=== PATIENT | female | born 1950 | race Caucasian/White ===

== ENCOUNTER 2019-03-22 14:15 | Outpatient (CLI) | payer MEDICARE, OTHER, SELFPAY ==
--- NOTE | ~2019-03-22 | MR_ITS ---
EXAMINATION: MR lumbar spine wo con EXAM DATE: 03/22/2019 15:03 INDICATION: Radiculopathy. TECHNIQUE: Multi-sequential, multiplanar MR images of the lumbar spine were obtained without contrast . Sagittal T1, T2, T2 fat saturation images. Axial T2 weighted images. Comparison is made to prior examination from 07/17/2016. FINDINGS: Patient has L4-5 fusion and laminectomies. There is moderate to severe disc disease at L4-5 and L5-S1 with 3 mm and 5 mm anterolisthesis at these levels respectively. Mild disc disease from T1 1-L2. The conus medullaris terminates at the T12-L1 level and has normal signal intensity and morphol ogy. 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 T here is mild thoracic dextroscoliosis. Level by level evaluation: T12-L1: There is a mild diffuse disc bulge. Facet arthropathy: Mild to moderate. Neural foraminal stenosis: No stenosis. Central canal stenosis: No stenosis. L1-L2: There is a mild diffuse disc bulge. Facet arthropathy: Mild to moderate . Ligamentum flavum enlargement. Neural foraminal stenosis: Mild right. Central canal stenosis: Mild. L2-L3: There is a moderate diffuse disc bulge. Facet arthropathy: Moderate . Ligamentum flavum enlargement. Neural foraminal stenosis: Moderate to severe left, mild right. Central canal stenosis: Moderate. L3-L4: There is a moderate to large diffuse disc bulge. Facet arthropathy: Moderate to severe . Ligamentum flavum enlargement. Neural foraminal stenosis: Moderate left, mild to moderate right. Central canal stenosis: Moderate to severe. L4-L5: This level is fused. Facet arthropathy: Fused. Neural foraminal stenosis: No stenosis. Central canal stenosis: Posterior decompression. L5-S1: There is a mild diffuse disc bulge. Facet arthropathy: Mild to moderate. Neural foraminal stenosis: Mild to moderate bilateral. Central canal stenosis: Mild. Compared to 2017, there may be minimal interval progression in spondylosis. IMPRESSION: 1. L3-4 and L4-5 grade 1 anterolistheses, moderate and moderate to severe central canal stenosis res pectively. 2. Lesser spondylosis other levels with minimal progression compared to 2017. Reviewed, dictated and finalized at location A. S ROOM ASSOCIATE IMPRESSION: 1. L3-4 and L4-5 grade 1 anterolistheses, moderate and moderate to severe cent ral canal stenosis respectively. 2. Lesser spondylosis other levels with minimal progression compared to 2017.
== END 2019-03-22 14:16 | disposition home or self-care (01) ==
LOC: ANHIMG 14:18
PROVIDERS: PCP Family Medicine; Visit Provider Nurse Practitioner Family
DX: M43.16 Spondylolisthesis, lumbar region (principal); M48.061 Spinal stenosis, lumbar region without neurogenic claudication; M47.816 Spondylosis without myelopathy or radiculopathy, lumbar region
CPT/HCPCS: 72148

== ENCOUNTER 2019-07-09 19:37 | Outpatient (CLI) | payer MEDICARE, OTHER, SELFPAY ==
--- NOTE | ~2019-07-09 | MR_ITS ---
EXAMINATION: MR cervical spine wo con DATE: 07/09/2019 20:30 INDICATION: Cervical radiculopathy. TECHNIQUE: Magnetic resonance imaging (MRI) of the cervical spine was performed without intravenous c ontrast. Sequences included sagittal T2-weighted FSE, sagittal T2-weighted FS FSE, sagittal T1-weight ed FSE, axial MERGE, and axial T2-weighted FSE. COMPARISON: None FINDINGS: There is hypolordosis of inferior cervical spine. Vertebral body heights are normal. There is mildly decreased disc height at C4-C5 and severely decreased disc height at C5-C6 and C6-C7. The s sabina cord signal intensity is normal. There is a 7 mm nodule in left thyroid lobe, likely not clinic ally significant. The following disc levels are specifically discussed: C2-C3: The disc does not extend beyond the endplate margin. There is no uncovertebral joint osteoarth ritis. There is mild right and moderate left facet joint osteoarthritis. There is no neural foraminal stenosis. There is no central canal stenosis. C3-C4: There is a central protrusion. There is mild left uncovertebral joint osteoarthritis. There is mild bilateral facet joint osteoarthritis. There is mild left neural foraminal stenosis. There is mi ld central canal stenosis. C4-C5: The disc is bulging. There is moderate right and severe left uncovertebral joint osteoarthriti s. There is mild right and moderate left facet joint osteoarthritis. There is mild right and moderate left neural foraminal stenosis. There is mild central canal stenosis with ventral indentation of the spinal cord. C5-C6: The disc is bulging. There is severe bilateral uncovertebral joint osteoarthritis. There is mi ld bilateral facet joint osteoarthritis. There is severe right and moderate left neural foraminal mesha nosis. There is moderate central canal stenosis with ventral and dorsal indentation of the spinal cor d. C6-C7: The disc is bulging. There is severe bilateral uncovertebral joint osteoarthritis. There is mi ld bilateral facet joint osteoarthritis. There is mild right and moderate left neural foraminal steno sis. There is moderate central canal stenosis with ventral and dorsal indentation of the spinal cord. C7-T1: The disc is bulging. There is mild left uncovertebral joint osteoarthritis. There is severe ri ght and moderate left facet joint osteoarthritis. There is mild bilateral neural foraminal stenosis. There is mild central canal stenosis. IMPRESSION: 1. Severe cervical spondylosis. Reviewed, dictated and finalized at location A.
--- NOTE | ~2019-07-09 | MR_ITS ---
EXAMINATION: MR thoracic spine wo con DATE: 07/09/2019 20:45 INDICATION: Thoracic back pain. TECHNIQUE: Magnetic resonance imaging (MRI) of the thoracic spine was performed without intravenous c ontrast. Sagittal localizer T1-weighted FSE of the cervical spine was obtained. Thoracic spine sequen liset included sagittal T2-weighted FSE, sagittal T1-weighted FSE, sagittal STIR FSE, and axial T2-weig hted FSE. COMPARISON: None FINDINGS: There is 7 degrees levocurvature of upper thoracic spine. There is mild chronic anterior we dging of T5-T8 vertebral bodies. There are Schmorl's nodes from T5-T6 through L1-L2. There is mild to moderately decreased disc height from T4-T5 through T9-T10. At T1-T2, there is a left central extrus ion with mild central canal stenosis. At T2-T3, there is a central protrusion with mild central canal stenosis. At T5-T6, the disc is bulging with mild central canal stenosis. At T7-T8, there is a right central extrusion with mild central canal stenosis. At T8-T9, there is a central extrusion with mild central canal stenosis. At T9-T10, the disc is bulging with mild central canal stenosis. There is mu ltilevel facet joint osteoarthritis, mild at most levels. On the right, there is mild neural foramina l stenosis at T9-T10. On the left, there is mild neural foraminal stenosis at T9-T10 and T11-T12. The spinal cord signal intensity is normal. IMPRESSION: 1. Moderate thoracic spondylosis. Reviewed, dictated and finalized at location A.
== END 2019-07-09 19:38 | disposition home or self-care (01) ==
PROVIDERS: PCP Family Medicine; Visit Provider Nurse Practitioner Family
DX: M54.6 Pain in thoracic spine (principal); M47.814 Spondylosis without myelopathy or radiculopathy, thoracic region; M47.812 Spondylosis without myelopathy or radiculopathy, cervical region
CPT/HCPCS: 72141; 72146

== ENCOUNTER 2024-01-07 22:36 | Emergency (ER) | payer MEDICARE, OTHER, SELFPAY ==
--- NOTE | ~2024-01-07 | XR_ITS ---
XR forearm RT 2V Ordering provider: Luz An PA-C History: . dog bite . Comparison: None. FINDINGS: BONES: No acute fracture or dislocation. 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 Possibility of osteomyelitis should be considered. JOINT SPACES: Normal. SOFT TISSUES: Soft tissue swelling is seen anteriorly in the forearm. IMPRESSION: Sclerotic changes in the proximal radius and ulna. possibility of osteomyelitis should be considered. Soft tissue swelling in the proximal forearm suggestive of cellulitis. Hematoma cannot be excluded. Reviewed, dictated and finalized at location A. ETING SUPPORT MANAGER
[2024-01-07 22:38] VITALS: BP 151/65; PULSE 56; RESP 13; TEMP 36.6; O2SAT 99
--- NOTE | 2024-01-08 01:22 | ED_ITS ---
HPI - Animal Bite General Chief Complaint: Animal Bite Stated Complaint: dog bite R forearm Time Seen by Provider: 01/08/24 00:48 Source: patient Mode of arrival: EMS Limitations: no limitations History of Present Illness HPI narrative: This is a 73 year old female that presents to the ER for dog bite to the bilateral forearms. Reports her dog and her family members dog were fighting and she tried to break it up. Reports multiple lacerations to the right forearm. She is unsure of last tetanus vaccination. The dogs are up to date on their vaccinations. Denies decreased ROM or numbness. Related Data Allergies Allergy/AdvReac Type Severity Reaction Status Date / Time No Known Allergies Allergy Unknown Verified 01/07/24 22:43 Review of Systems Review of Systems: CONSTITUTIONAL: Denies fever SKIN: Reports laceration NEUROLOGIC: Denies numbness All systems reviewed & are unremarkable except as noted in HPI and below PMFSH Past Medical History Medical History (Updated 01/08/24 @ 03:32 by Luz An PA-C) Hypertension Tachycardia Social History Social History (Updated 02/24/19 @ 17:53 by Jayro Meléndez, MAGED) Smoking status: Never smoker Gender identity (if verbalized by the patient): Female Exam Narrative: GENERAL: Well-appearing, well-nourished, and in no acute distress. HEAD: Normocephalic, atraumatic. EYES: EOMI. EXTREMITIES: Normal range of motion. No edema. Normal radial pulses. Multiple puncture wounds to the right forearm. Superficial abrasion to the left wrist SKIN: Warm, dry, no rash. NEURO: No focal deficits. Alert and oriented x3. PSYCH: Normal mood and affect Course Course Emergency Course: patient educated on further wound care Vital Signs Vital signs: Vital Signs Temperature 97.8 F 01/07/24 22:38 Pulse Rate 56 L 01/07/24 22:38 Respiratory Rate 13 01/07/24 22:38 Blood Pressure 151/65 H 01/07/24 22:38 Pulse Oximetry 99 01/07/24 22:38 Oxygen Delivery Room Air 01/07/24 22:38 Temperature 97.8 F 01/07/24 22:38 Pulse Rate 82 01/08/24 01:49 Respiratory Rate 16 01/08/24 01:49 Blood Pressure 163/62 H 12/03/24 01:49 Pulse Oximetry 98 01/08/24 01:49 Oxygen Delivery Room Air 01/07/24 22:38 Procedures Laceration Laceration 1: Date: 01/08/24 Time: Site: upper extremity Side (If applicable): right Size (cm): 3 Description: linear Depth: simple, single layer Pre-repair: irrigated extensively ====== Skin Level ====== Skin layer closed with: steri strips ====== Subcutaneous Layer ====== ====== Muscle Layer ====== ====== Tendon Layer ====== Laceration 2: Date: 01/08/24 Time: : Site: upper extremity Side (If applicable): right Size (cm): 2 Description: linear Depth: simple, single layer Pre-repair: irrigated extensively ====== Skin Level ====== Skin layer closed with: steri strips ====== Subcutaneous Layer ====== ====== Muscle Layer ====== ====== Tendon Layer ====== MDM - Animal Bite MDM Narrative Medical decision making narrative: Patient presents to the emergency department after a dog bite with laceration to the right forearm. Patient with multiple puncture wounds. These were thoroughly irrigated. Her wounds were approximated with Steri-Strips, while trying to allow for them to still drain. She was updated on tetanus vacci nation. Will be started on prophylactic antibiotic. Forearm x-ray shows hematoma. Sclerotic changes in the radius and ulna. I do not believe patient has osteomyelitis at this time. She was educated on further wound care. She is to follow up with primary provider. She was given warnings to return to the ER Differential Diagnosis Differential diagnosis: Likely dog bite Imaging Data Radiologist's impression: ITS Impressions Forearm X-Ray 01/08/24 01:49 IMPRESSION: Sclerotic changes in the proximal radius and ulna. possibility of osteomyelitis should be considered. Soft tissue swelling in the proximal forearm suggestive of cellulitis. Hematoma cannot be excluded. Critical Care Time Critical Care Time Critical Care Time: No Discharge Plan Discharge Clinical Impression: Dog bite Qualifiers: Encounter type: initial encounter Qualified Code(s): W54.0XXA - Bitten by dog, initial encounter Patient Disposition: Home, Self-Care Condition: Stable Instructions: Antibiotic Form, Animal Bite (ED) Additional Instructions: Return to the emergency department if you experience fever, redness or swelling of your wound, abnormal drainage from your wound, or any other symptoms that are concerning to you. Do not soak the wound. Let the water run over the wounds in the shower. When the steri strips fall off clean the area with soap and water and apply more steri strips. Take oral antibiotic as prescribed Follow-up with your primary care doctor for wound check Prescriptions: New amoxicillin-pot clavulanate 875-125 mg tablet 1 tablet PO Q12H 7 Days Qty: 14 0RF Follow-up/Referrals: Andrew Yanes MD [Physician] - UNKNOWN,DOCTOR [Primary Care Provider] -
[2024-01-08 01:49] VITALS: BP 163/62; PULSE 82; RESP 16; O2SAT 98
[2024-01-08] MEDS: TETANUS,DIPHTHERIA,AC PERTUSSIS ADULT (0.5 ML) BOOSTRIX IM (02:28)
[2024-01-08] MEDS: AMOXICILLIN/CLAVULANATE K 875-125 MG TAB 1 TABLET PO (04:13)
[2024-01-08 04:21] VITALS: BP 160/65; PULSE 80; RESP 13; O2SAT 100
[2024-01-08 04:23] VITALS: BP 160/65; PULSE 80; RESP 13; O2SAT 100
== END 2024-01-08 04:26 | disposition home or self-care (01) ==
PROVIDERS: Emergency Provider Physician Assistant
DX: S51.851A Open bite of right forearm, initial encounter (principal); S51.852A Open bite of left forearm, initial encounter; W54.0XXA Bitten by dog, initial encounter; I10 Essential (primary) hypertension; Z23 Encounter for immunization
CPT/HCPCS: 73090; 90471; 90715; 99283; A9270

== ENCOUNTER 2024-07-03 15:33 | Inpatient (IN) | payer MEDICARE, OTHER, SELFPAY ==
[2024-07-03] VITALS (18 sets, daily range): BP systolic 127–175; BP diastolic 70–98; PULSE 62–90; RESP 13–22; TEMP 36.8; O2SAT 96–100; BMI 23.8
--- NOTE | ~2024-07-03 | XR_ITS ---
CHEST RADIOGRAPH, PA AND LATERAL CLINICAL HISTORY: chest pain . COMPARISON: 09/10/2017 TECHNIQUE: PA and lateral views of the chest. FINDINGS The cardiomediastinal silhouette is unremarkable. The lungs are clear. IMPRESSION: No focal infiltrate or effusion. Reviewed, dictated and finalized at location A.
--- OUTSIDE RECORDS SUMMARY | 2024-07-03 15:36 | XMS_ITS | Encounter Summary ---
Author Organization [facility] Healthcare Address [address] [place] [address] Care Team Providers Care Social Insurance Adviser Name Role Phone Joan Sepulveda MD Primary Care Provider Encounter Details Date Type Department Care Team (Late st Contact Info) Description 10/01/2023 Telephone [facility] [address] [place] [address] Lisa Hernandez, BELLE Social History Tobacco Use Types Packs/Day Years Used Date Smoking Tobacco: Former Smokeless Tobacco: Never Comments:Smoking History Pac ks/day: 1 Packs/pt vapes not nicotine Alcohol Use Standard Drinks/Week Comments No 0 (1 standard drink = 0.6 oz pur e alcohol) AUDIT-C Answer Date Recorded Q1: How often do you have a drink containing alcohol? Never 10/03/2023 Q2: How many drinks containi ng alcohol do you have on a typical day when you are drinking? Patient does not drink Q3: How often do you have si x or more drinks on one occasion? 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 Never 10/03/2023 3:13 PM Bree Kelly MA Q2: How many drinks containing alcohol do you have on a typical day when you are drinking? Patient does not drink 10/03/2023 3:13 PM Bree Kelly MA Q3: How often do you have six or more drinks on one occasion? Never 10/03/2023 3:13 PM Bree Kelly MA documented as of this encounter Plan of Treatment Not on file documented as of this encounter Visit Diagnoses Not on filedocumented in this encounter Care Teams Social Insurance Adviser Relationship Specialty Start Date End Date Joan Sepulveda MD PCP - General Family Practice 07/20/22 documented as of this encounter
--- OUTSIDE RECORDS SUMMARY | 2024-07-03 15:36 | XMS_ITS | Clinical Summary ---
Author Organization [facility] [place] [address] [facility] lt Address [address] [address] Care Team Providers Care Psychiatry Resident Name Role Phone Joan Sepulveda MD Primary Care Provider Allergies No known active allergies Medications omega-3 fatty acids-fish oil (FISH OIL) 360-1,200 mg capsule 0 0 6 Active blood glucose diagnostic (glucose blood) strip 1 each by Not Applicable route 4 Active traZODone (DESYREL) 50 mg tabletIndicatio ns:Chronic insomnia Take 1 tablet (50 mg total) by mouth nightly as needed for sleep for sleep 90 tablet 1 4 Active cyanocobalamin (Vitamin B-12) 1,000 mcg tabletIndicatio ns:Prevention of Vitamin B12 Deficiency Take 1 tablet (1,000 mcg total) by mouth daily 100 tablet 3 4 Active buPROPion XL (WELLBUTRIN XL) 150 mg 24 hr tabletIndicatio ns:Anxiety with Depression Take 1 tablet (150 mg total) by mouth every morning 100 tablet 1 4 Active losartan (COZAAR) 50 mg tabletIndicatio ns:Hypertension associated with type 2 diabetes mellitus (HCC),Encounter for Medicare annual wellness exam Take 1 tablet (50 mg total) by mouth daily 100 tablet 1 4 Active metoprolol XL (TOPROL-XL) 50 mg extended release tabletIndicatio ns:Paroxysmal SVT (supraventricul ar tachycardia),En counter for Medicare annual wellness exam Take 1 tablet (50 mg total) by mouth daily 100 tablet 1 4 Active rosuvastatin (CRESTOR) 20 mg tabletIndicatio ns:Hyperlipidem ia due to type 2 diabetes mellitus (HCC),Encounter for Medicare annual wellness exam Take 1 tablet (20 mg total) by mouth daily 100 tablet 3 4 Active donepeziL (ARICEPT) 10 mg tabletIndicatio ns:Moderate early onset Alzheimer's dementia without behavioral disturbance, psychotic disturbance, mood disturbance, or anxiety (HCC) TAKE 1/2 TABLET BY MOUTH ONCE A DAY FOR TWO WEEKS, THEN ONE TABLET ONCE A DAY 90 tablet 5 5 Active Active Problems Problem Noted Date Diagnosed Date Moderate early onset Alzheim er's dementia without behavioral disturbance, psychotic disturbance, mood disturbance, or anxiety 09/04/2023 Assessment & Plan (10/03/2023 4:59 PM CDT): Chronic. Working with neurology. Under evaluation. Has lumbar puncture plan to further evaluate for Alzheimer's type. Recently started on donepezil CKD (chronic kidney disease) stage 3, GFR 30-59 ml/min 06/27/2023 Assessment & Plan (10/03/2023 4:59 PM CDT): Mild on prior labs. Monitor. Continue losartan. Assessment & Plan (06/27/2023 6:38 PM CDT): Patient had mild CKD stage IIIA on labs last year. We need to avoid dehydration limit use of NSAIDs. This is likely due to history of chronic hypertension and potential component of diabetic injury. We will need to monitor renal function least once yearly. Avoid dehydration. We are going to try to get her blood pressure better Chronic insomnia 06/27/2023 Assessment & Plan (06/27/2023 6:39 PM CDT): Chronic. Patient does have a degree of inconsistent sleep habits. She only sleeps about 4-6 hours a night. Unsure how much of the trazodone is helping but were not sure if she is actually taking it regularly Paroxysmal SVT (supraventricular tachycardia) Assessment & Plan (10/03/2023 4:58 PM CDT): Chronic. Denies any recent symptoms. Continue metoprolol Assessment & Plan (06/27/2023 6:37 PM CDT): Chronic intermittent episodes of paroxysmal SVT. Patient does not recall any recent episodes of that are symptomatic. She is supposed to be on metoprolol immediate release twice daily but some concerns about compliance. We will change it to the once a day extended release to see if this can improve her medication compliance Cervical stenosis of spinal canal 07/20/2022 Electronic cigarette use 07/12/2020 Assessment & Plan (07/12/2020 4:10 PM CDT): Precontemplative. Encouraged complete smoking cessation. Discussed different types of medications & obmy-kfn-cfumlix aides to help with cessation. Moderate episode of recurrent major depressive d isorder 07/12/2020 Assessment & Plan (10/03/2023 4:58 PM CDT): Chronic. Mood stable on extended release bupropion. Continue Assessment & Plan (06/27/2023 6:36 PM CDT): Chronic. Mood needs some improvement. She does have mild depressive symptoms but not severe depression. Patient is not great about taking her bupropion twice a day. We will change this to the extended release once a day version. We will see if this provides better control. If still struggling next visit then we may consider changing to an alternative mood medication like an SSRI Assessment & Plan (07/12/2020 4:28 PM CDT): Bupropion 150mg bid. Reports good control of depression w/current regimen. No changes to be made at this time. Reviewed med Ses & scheduling. Reviewed red flags. Hyperlipidemia due to type 2 diabetes mellitus 0 02/07/2020 Assessment & Plan (10/03/2023 4:58 PM CDT): Chronic diabetes which has been diet controlled over the last few years. Encouraged diabetic diet and lifestyle. Continue rosuvastatin. Cholesterol levels will be checked medication adjusted as needed to target an LDL goal less than 70 Assessment & Plan (06/27/2023 6:36 PM CDT): Patient was off cholesterol medication when cholesterol level was checked last year. Her cholesterol level has been very poorly controlled. She is supposed to be on rosuvastatin but is unclear how often she is taking this. We discussed use of the pill organizer to make sure she starts taking this more regularly. We will plan to get updated cholesterol level at next visit. We are trying to target an LDL goal of less than 70. There is no real symptoms to suggest statin intolerance though she has not necessarily taking it as consistently as we would like Assessment & Plan (07/12/2020 4:28 PM CDT): 04/25/18: rj=838 hdl=33 um=041 xcy=025 Tc/hdl=6.6 Pravastatin 40mg daily. We will check labs and make adjustments to medications as needed. Patient should focus on limiting bad fats in the diet and using exercise as a way to improve the lipid status. Secondary prevention. Reviewed medications. Lipid panel ordered; will call w/results when rec'd. Denies any statin Ses. Reviewed diet/exercise recommendations. Reviewed red flags. Type 2 diabetes mellitus with polyneuropathy 04/2013 Assessment & Plan (10/03/2023 4:58 PM CDT): Chronic. Stable. Monitor. Encouraged healthy diet and lifestyle Assessment & Plan (06/27/2023 6:33 PM CDT): Chronic. Diabetes has been well-controlled. No indication for oral medications at present time. Encouraged her to continue to try to limit some of the sweets in the diet but we can likely tolerate slightly looser control due to patient's memory impairment. I would be hesitant to consider anything that can cause significant hypoglycemia going forward. We still need a copy of her most recent diabetic eye exam from last fall. We did encourage them to make sure they schedule this least once a year. Diabetic foot exam was done today. She will need a full diabetic panel labs when we see her back for her annual wellness visit Assessment & Plan (07/12/2020 4:09 PM CDT): Lab Results Component Value Date HGBA1C 5.9 04/25/2018 Has not been in clinic since 04/2018. Has not had any labs since that time. Reviewed dietary/exercise recommendations. Instructed to perform daily foot check. Reviewed medication side effects & scheduling. To check/record FSBS & bring to appointments. Labs ordered; will call with results when received. To make follow up appointment in 6 months. Reviewed red flags; what would warrant further evaluation. History of breast biopsy 07/07/2011 B12 deficiency 03/03/2010 Assessment & Plan (10/03/2023 4:57 PM CDT): Chronic. They are unsure she is actually taking her oral replacement. They will check when she gets home. If on oral replacement and still low then we may need to start on B12 injections monthly. If not on replacement then she would restart a 1000 mcg daily Assessment & Plan (06/27/2023 6:32 PM CDT): Chronic. It is supposed to be on oral replacement. Unclear how consistent she is taking it. Patient does struggle some with remember taking her meds. We discussed with patient's daughter and herself how to potentially try to improve medication compliance. Discussed use of a pill menu planner and having family remind her regularly to take her pills. We will see if this can help. Memory loss 02/19/2009 Assessment & Plan (10/03/2023 4:58 PM CDT): Chronic. Following with Neurology now. Under evaluation for dementia. Recently started on donepezil. Continue Assessment & Plan (06/27/2023 6:35 PM CDT): Patient has significant memory impairment. It is unclear if this is an Alzheimer's type dementia versus vascular dementia versus a component of pseudodementia versus alternative pathology. She definitely struggles significantly with the short- term memory. Discussed home safety concerns and making sure the family is around to help out with her care. They are going to try to make sure they can figure out a way to help her improve compliance with medication. They do check on her regularly. If they do continue to struggle long-term and can not improve medication compliance then they may need to consider looking at placing her in an assisted living facility with potential memory care unit at some point in time but hopefully this can be avoided Assessment & Plan (07/12/2020 10:27 PM CDT): States that children know she's having memory issues. reivewed safety. Has 19 y/o grandson that stays with her. Hypertension associated with type 2 diabetes michael patterson 11/27/2008 Assessment & Plan (10/03/2023 4:57 PM CDT): Hypertension was controlled in office today. Continue metoprolol extended- release and losartan. Encouraged healthy diet and lifestyle. Diabetes has been diet controlled. We do need her most recent eye exam Assessment & Plan (06/27/2023 6:34 PM CDT): Chronic. Patient's blood pressure was uncontrolled in office today. They do believe she has a least off 1 if not multiple blood pressure medications. Patient is not good about taking her medications every day especially if they are dosed more than once daily. We will change the metoprolol 25 mg twice daily immediate release to metoprolol succinate 50 mg once daily as an equivalent once day alternative. She will continue the losartan. These were both refilled for her. Discussed home blood pressure goals. We will have them follow up with me in 3 months for her blood pressure and diabetes. If blood pressures remaining elevated on home monitoring between now and then they will let me know Assessment & Plan (07/12/2020 4:10 PM CDT): Has not been in clinic since 04/2018. Has not had any labs since that time. The blood pressure is under good control. Ideally it should be under 130/80. Continue medications without adjustment. Continue efforts to eat well (4-5 fruits and veggies) daily and exercise for about 30 min nearly every day. Watch salt intake, keeping to less than 2000mg per day. Limit alcohol. Include strategies to cope with stress. Labs ordered today; will contact w/results once received. Chronic low back pain 06/15/2008 Overview (11/22/2016): Overview: S/p 5 back surgeries. On chronic narcotic treatment since 1995. S/p pain management, physical therapy, stimulator. Assessment & Plan (10/03/2023 4:58 PM CDT): Patient with chronic low back pain. Stable. Discussed use of acetaminophen for pain. Consider putting it in her pillbox so it becomes a scheduled medication for nighttime symptoms Assessment & Plan (07/12/2020 10:26 PM CDT): Using marijuana gummies & CBD droppers. Reports that pain controlled. Resolved Problems Problem Noted Date Diagnosed Date Resolved Date BMI 27.0-27.9,adult 07/12/2020 07/21/19 Assessment & Plan (07/12/2020 4:01 PM CDT): Discussed healthy diet and importance of regular physical activity. BMI is acceptable for this patient. Hypertension associated with diabetes 07/12/2020 07/12/2020 Assessment & Plan (07/12/2020 4:06 PM CDT): The blood pressure is under good control. Ideally it should be under 130/80. Continue medications without adjustment. Continue efforts to eat well (4-5 fruits and veggies) daily and exercise for about 30 min nearly every day. Watch salt intake, keeping to less than 2000mg per day. Limit alcohol. Include strategies to cope with stress. Labs ordered today; will contact w/results once received. Need for 23-polyvalent pneum ococcal polysaccharide vaccine 07/12/2020 07/20/2022 Assessment & Plan (07/12/2020 4:11 PM CDT): Pneumovax 23 vaccine given today. Discussed possible tenderness/redness at injection site. Encounter for screening mamm ogram for breast cancer 07/12/2020 07/20/2022 Assessment & Plan (07/12/2020 4:11 PM CDT): Mammogram order given; will call with results when received. Encouraged to perform monthly SBE. Encounter for osteoporosis s creening in asymptomatic postmenopausal patient 07/12/202007/06 Assessment & Plan (07/12/2020 4:11 PM CDT): DEXA ordered. Will contact with results once received. Screening for colon cancer 07/12/2020 0 07/20/2022 Assessment & Plan (07/12/2020 4:11 PM CDT): Referral to [facility] for colonoscopy. Aware that their office will call her to set up. number given if she does not receive call. Colonoscopy refused 04/28/2018 07/13/19 Depression 05/18/2009 07/12/2020 Chronic pain 06/15/2008 07/12/2020 Hyperlipidemia 06/15/2008 07/12/2020 Tobacco abuse 06/15/2008 07/12/2020 Immunizations Immunization Administration Dates Next Due Influenza, Quadrivalent, Hig h Dose, Preservative Free, Intrr 02/11/2021 Influenza, Quadrivalent, Spl it, Preservative Free, Intramuscular 04/25/2018,10/23/2016 Influenza, Trivalent, Adjuva nted, Intramuscular 10/02/2018 Influenza, Trivalent, IM (MDV) 12/08/2010,2009 Influenza, Unspecified 11/06/2019(Deferr ed: Patient Refused),11/06/2019(Deferred: Patient Refused),04/25/2018(Deferred: Patient Refused),02/05/2017(Deferred: Patient Refused) Pneumococcal Conjugate PCV 13 04/25/2018 Pneumococcal Polysaccharide PPV23 07/12/2020,,04/22/2012 Tdap 04/01/2013 Surgical History Surgery Date Site/Laterality Comments BACK SURGERY back surgery OTHER SURGICAL HISTORY back surgery- cages OTHER SURGICAL HISTORY spinal cord stimulater OTHER SURGICAL HISTORY ovary and tubes OTHER SURGICAL HISTORY surgery-replace stimulator OTHER SURGICAL HISTORY removal of stimulator CHOLECYSTECTOMY Cholecystectomy [place] FLUORO GUIDED LUMBAR PUNCTURE 10/26/2023 Right Medical History Medical History Date Comments Hypercholesterolemia 1984 High choles terol; Comments: [facility] 03/01/2015 - Hx Other Medical 1993 degenerative di sc disease; Comments: [facility] 03/01/2015 - Hx Other Medical [facility]; Comments: [facility] 03/01/2015 - Diabetes mellitus (HCC) Diabetes mellitus; Comments: [facility] 03/01/2015 - Memory deficit due to cyst on b rain Chickenpox Family History Medical History Relation Name Comments Heart disease Father Heart disease; Hypertension Father Hypertension; Stroke Father Stroke; Alzheimer's disease Mother Alzheime r's disease; Cause of : Alzheimer's disease Colon cancer Neg Hx Relation Name Status Comments Father Mother Social History Tobacco Use Types Packs/Day Years [...] 2 10/03/2023 Personal Safety Answer Date Recorded Have you ever been in or are you currently in a harmful physical or emotional relationship or is someone making you feel afraid or unsafe? 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 Gender Identity Not on file Sexual Orientation Not on file Obstetrics History Last Filed Vital Signs Vital Sign Reading Time Taken Comments Blood Pressure 203/84 12/12/2023 1:48 PM PHOTOVOLTAIC TESTING TECHNICIAN Pulse 55 12/12/2023 1:48 PM PHOTOVOLTAIC TESTING TECHNICIAN Temperature 36.6 C (97.9 F) 10/26/2023 8:50 AM CDT Respiratory Rate 18 12/12/2023 1:48 PM PHOTOVOLTAIC TESTING TECHNICIAN Oxygen Saturation 98% 12/12/2023 1:48 PM PHOTOVOLTAIC TESTING TECHNICIAN Inhaled Oxygen Concentration - - Weight 62.5 kg (137 lb 12.8 oz) 12/12/2023 1:48 PM PHOTOVOLTAIC TESTING TECHNICIAN Height 160 cm (5' 3) 12/12/2023 1:48 PM PHOTOVOLTAIC TESTING TECHNICIAN Body Mass Index 24.41 12/12/2023 1:48 PM PHOTOVOLTAIC TESTING TECHNICIAN Plan of Treatment Health Maintenance Due Date Last Done Comments Breast Cancer Screening-Mammogram 1952 Hepatitis C Screening 1950 Osteoporosis Screening-Bone Density Scan 1950 Dilated Eye Exam 1952 Hepatitis B Screening 1970 Zoster Vaccine (1 of 2) 2002 Colon Cancer Screening-FIT 05/03/2019 05/02/2018 DTaP/Tdap/Td Vaccine (2 - Td or Tdap) 04/01/2023 04/01/2013 Albumin Creatinine Ratio, Urine 08/24/2023 Lipid Panel 08/24/2023 08/23/2022, 0 08/2021, 04/25/2018, Additional history exists eGFR 08/24/2023 08/23/2022 Hemoglobin A1C 12/28/2023 06/27/2023, 07/06, 02/11/2021, Additional history exists Foot Exam 06/26/2024 06/27/2023, 06/06, 09/06/2022, Additional history exists Depression Screening 10/02/2024 10/03/2023, 10/03/2023, 06/27/2023, Additional history exists Well Visit 65+ 10/02/2024 10/03/2023 Influenza Vaccine (Season Ended) 2024 02/11/2021, 10/02/2018, 04/25/2018, Additional history exists Fall Risk Assessment 10/25/2024 10/26/2023, 10/03/2023, 07/20/2022, Additional history exists Pneumococcal vaccine 65+ Completed 021, 04/25/2018, 04/22/2012, Additional history exists Procedures Procedure Name Priority Date/Time Associated Diagnosis Comments POCT HEMOGLOBIN A1C Routine 06/27/2023 3 :37 PM CDT Hyperlipidemia due to type 2 diabetes mellitus (HCC) Hypertension associated with type 2 diabetes mellitus (HCC) Type 2 diabetes mellitus with polyneuropathy (HCC) COMPREHENSIVE METABOLIC PANEL Routine 08/23/2022 2:03 PM CDT Hypertension associated with type 2 diabetes mellitus (HCC) Type 2 diabetes mellitus with polyneuropathy (HCC) Hyperlipidemia due to type 2 diabetes mellitus (HCC) LIPID PANEL Routine 08/23/2022 2:03 PM CDT Hypertension associated with type 2 diabetes mellitus (HCC) Type 2 diabetes mellitus with polyneuropathy (HCC) Hyperlipidemia due to type 2 diabetes mellitus (HCC) ALBUMIN CREATININE RATIO, URINE Routine 08/23/2022 2:03 PM CDT Hypertension associated with type 2 diabetes mellitus (HCC) Type 2 diabetes mellitus with polyneuropathy (HCC) Hyperlipidemia due to type 2 diabetes mellitus (HCC) OCCULT BLOOD, FECAL (FIT) Routine 05/02/2018 from Last 3 Months or Most Recently Relevant to Health Maintenance Results * POCT hemoglobin A1c (06/27/2023 3:37 PM CDT) Hemoglobin A1C, POC 5.8 % Blood 06/27/2023 3:37 PM CDT Joan Sepulveda MD POINT OF CARE TEST ORD ERABLES Final Result * Albumin Creatinine Ratio, Urine (08/23/2022 2:03 PM CDT) Creatinine, ur 190 20 - 275 mg/dL [facility] Microalbumin, ur 3.1 See Note: mg/dL [facility] Comment: Reference Range: Reference Range Not established Microalbumin/creat ratio 16 <30 mcg/mg creat [facility] Comment: The ADA defines abnormalities in albumin excretion as follows: Albuminuria Category Result (mcg/mg creatinine) Normal to Mildly increased <30 Moderately increased 30-299 Severely increased > OR = 300 The ADA recommends that at least two of three specimens collected within a 3-6 month period be abnormal before considering a patient to be within a diagnostic category. Urine 08/23/2022 2:03 PM CDT 08/23/2022 2:04 PM CDT Narrative [facility] - 08/25/2022 1:49 AM CDT FASTING:YES FASTING: YES Joan Sepulveda MD LAB URINE ORDERABLES F inal Result Performing Organization Address City/[facility]/ZIP Co de Phone Number [facility] [address] [address] [address] * (ABNORMAL) Lipid panel (08/23/2022 2:03 PM CDT) Pathologist [facility] Cholesterol 248(H) <200 mg/dL [facility] HDL 46(L) > OR = 50 mg/dL [facility] [place] Triglycerides 169(H) <150 mg/dL [facility] [place] LDL 170(H) mg/dL (calc) [facility] [place] Comment: Reference range: <100 Desirable range <100 mg/dL for primary prevention; <70 mg/dL for patients with CHD or diabetic patients with > or = 2 CHD risk factors. LDL-C is now calculated using the Iraida calculation, which is a validated novel method providing better accuracy than the Friedewald equation in the estimation of LDL-C. Baldemar ROSENBERG et al. BRENDON. 2013;310(19): 3541-6879 (http://education.CoupOption/faq/WZK629) Chol/HDL ratio 5.4(H) <5.0 (calc) [facility] [place] Non-HDL, (LDL+VLDL) 202(H) <130 mg/dL (calc) [facility] Comment: For patients with diabetes plus 1 major ASCVD risk factor, treating to a non-HDL-C goal of <100 mg/dL (LDL-C of <70 mg/dL) is considered a therapeutic option. Blood 08/23/2022 2:03 PM CDT 08/23/2022 2:04 PM CDT Narrative [facility] - 08/25/2022 1:49 AM CDT FASTING:YES FASTING: YES Joan Sepulveda MD LAB BLOOD ORDERABLES F inal Result Performing Organization Address City/[facility]/ZIP Co de Phone Number [facility] [address] [place] [address] * (ABNORMAL) Comprehensive metabolic panel (08/23/2022 2:03 PM CDT) Glucose 102(H) 65 - 99 mg/dL [facility] Comment: Fasting reference interval For someone without known diabetes, a glucose value between 100 and 125 mg/dL is consistent with prediabetes and should be confirmed with a follow-up test. BUN 11 7 - 25 mg/dL [facility] Creatinine 1.24(H) 0.50 - 1.05 mg/dL [facility] eGFR 47(L) > OR = 60 mL/min/1.7 3m2 [facility] Comment: The eGFR is based on the CKD-EPI 2020 equation. To calculate the new eGFR from a previous Creatinine or Cystatin C result, go to https://www.kidney.org/professionals/ kdoqi/gfr%5Fcalculator BUN/creat ratio 9 6 - 22 (calc) [facility] Sodium 139 135 - 146 mmol/L [facility] Potassium, pl 3.7 3.5 - 5.3 mmol/L [facility] Chloride 99 98 - 110 mmol/L [facility] CO2 30 20 - 32 mmol/L [facility] Calcium 10.0 8.6 - 10.4 mg/dL [facility] Protein, sr 7.4 6.1 - 8.1 g/dL [facility] Albumin 4.9 3.6 - 5.1 g/dL [facility] GLOBULIN 2.5 1.9 - 3.7 g/dL (calc) [facility] Alb/glob ratio 2.0 1.0 - 2.5 (calc) [facility] Bilirubin, total 0.9 0.2 - 1.2 mg/dL [facility] Alk phos 71 37 - 153 U/L [facility] AST 14 10 - 35 U/L [facility] ALT (SGPT) 11 6 - 29 U/L [facility] Blood 08/23/2022 2:03 PM CDT 08/23/2022 2:04 PM CDT Narrative [facility] - 08/25/2022 1:49 AM CDT FASTING:YES FASTING: YES Joan Sepulveda MD LAB BLOOD ORDERABLES F inal Result [facility] [address] [place] [address] * Occult Blood, Fecal (FIT) (05/02/2018) Stool Historical Provider LAB BODY FLUIDS AND STOOL S ORDERABLES Final Result EXTERNAL LAB from Last 3 Months or Most Recently Relevant to Health Maintenance Insurance [facility] MEDICARE [place] MEDICARE MEDICARE [place] Advance Directives For more information, please contact: [phone] * Full Code (Latest Code Status on File) Date Activated Date Inactivated Comments 10/26/2023 9:52 AM 10/27/2023 5:11 AM Care Teams Psychiatry Resident Relationship Specialty Start Date End Date Joan Sepulveda MD PCP - General Family Practice 07/20/22
--- OUTSIDE RECORDS SUMMARY | 2024-07-03 15:36 | XMS_ITS | Referral Summary ---
Author Organization [facility] [address] [facility] [facility] lto Address [address] [place] [address] Care Team Providers Care Klystrom Tube Tester Name Role Phone Joan Sepulveda MD Primary [...] cessation. Discussed different types of medications & [id number] aides to help with cessation. Moderate episode [...] & Plan (07/12/2020 4:28 PM CDT): 04/25/18: zb=656 hdl=33 sr=649 fpx=992 Tc/hdl=6.6 Pravastatin 40mg daily. We will check [...] medication compliance. Discussed use of a pill digital media planner and having family remind her regularly [...] Plan (07/12/2020 4:11 PM CDT): Referral to [facility] for colonoscopy. 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 Gender Identity Not on file Sexual Orientation Not on file Last Filed Vital Signs Vital Sign Reading Time Taken Comments Blood Pressure 203/84 12/12/2023 1:48 PM SHUTTLE FILLER Pulse 55 12/12/2023 1:48 PM SHUTTLE FILLER Temperature 36.6 C (97.9 F) 10/26/2023 8:50 AM CDT Respiratory Rate 18 12/12/2023 1:48 PM SHUTTLE FILLER Oxygen Saturation 98% 12/12/2023 1:48 PM SHUTTLE FILLER Inhaled Oxygen Concentration - - Weight 62.5 kg (137 lb 12.8 oz) 12/12/2023 1:48 PM SHUTTLE FILLER Height 160 cm (5' 3) 12/12/2023 1:48 PM SHUTTLE FILLER Body Mass Index 24.41 12/12/2023 1:48 PM SHUTTLE FILLER Plan of Treatment Not on file Procedures Procedure Name Priority Date/Time Associated Diagnosis [...] 08/25/2022 1:49 AM CDT FASTING:YES FASTING: YES us Joan Sepulveda MD LAB URINE ORDERABLES F inal Result [facility] [address] [id number] * (ABNORMAL) Lipid panel (08/23/2022 2:03 PM CDT) Cholesterol 248(H) <200 mg/dL [facility] HDL 46(L) > OR = 50 mg/dL [facility] Triglycerides 169(H) <150 mg/dL [facility] LDL 170(H) mg/dL (calc) [facility] Comment: Reference range: <100 Desirable range <100 mg/dL for primary prevention; <70 mg/dL for patients with CHD or diabetic patients with > or = 2 CHD risk factors. LDL-C is now calculated using the Iraida calculation, which is a validated novel method providing better accuracy than the Friedewald equation in the estimation of LDL-C. Baldemar ROSENBERG et al. BRENDON. 2013;310(19): 4027-2486 (http://education.[employer]/faq/NPQ640) Chol/HDL ratio 5.4(H) <5.0 (calc) [facility] Non-HDL, (LDL+VLDL) 202(H) <130 mg/dL (calc) [facility] Comment: For patients with diabetes plus 1 major ASCVD risk factor, treating to a non-HDL-C goal of <100 mg/dL (LDL-C of <70 mg/dL) is considered a therapeutic option. Blood 08/23/2022 2:03 PM CDT 08/23/2022 2:04 PM CDT Narrative [facility] - 08/25/2022 1:49 AM CDT FASTING:YES FASTING: YES us Joan Sepulveda MD LAB BLOOD ORDERABLES F inal Result [facility] [address] [place] [address] * (ABNORMAL) Comprehensive metabolic panel (08/23/2022 2:03 PM CDT) Glucose 102(H) 65 - 99 mg/dL [facility] Comment: Fasting reference interval For someone without known diabetes, a glucose value between 100 and 125 mg/dL is consistent with prediabetes and should be confirmed with a follow-up test. BUN 11 7 - 25 mg/dL [facility] Creatinine 1.24(H) 0.50 - 1.05 mg/dL [facility] eGFR 47(L) > OR = 60 mL/min/1.7 3m2 [facility] Comment: The eGFR is based on the CKD-EPI 2020 equation. To calculate the new eGFR from a previous Creatinine or Cystatin C result, go to https://www.kidney.org/professionals/ kdoqi/gfr%5Fcalculator BUN/creat ratio 9 6 - 22 (calc) [facility] [place] Sodium 139 135 - 146 mmol/L [facility] [place] Potassium, pl 3.7 3.5 - 5.3 mmol/L [facility] cedric [place] Chloride 99 98 - 110 mmol/L [facility] [place] CO2 30 20 - 32 mmol/L [facility] Calcium 10.0 8.6 - 10.4 mg/dL [facility] cedric [place] Protein, sr 7.4 6.1 - 8.1 g/dL [facility]ric [place] Albumin 4.9 3.6 - 5.1 g/dL [facility] cedric [place] GLOBULIN 2.5 1.9 - 3.7 g/dL (calc) [facility] Alb/glob ratio 2.0 1.0 - 2.5 (calc) [facility] Bilirubin, total 0.9 0.2 - 1.2 mg/dL [employer] [facility]ric [facility] Alk phos 71 37 - 153 U/L [facility] AST 14 10 - 35 U/L [email or web address] cedric [place] ALT (SGPT) 11 6 - 29 U/L [facility] Blood 08/23/2022 2:03 PM CDT 08/23/2022 2:04 PM CDT Narrative [facility] - 08/25/2022 1:49 AM CDT FASTING:YES FASTING: YES us Joan Sepulveda MD LAB BLOOD ORDERABLES F inal Result [facility] [address] [place] [address] * Occult Blood, Fecal (FIT) (05/02/2018) Stool us Historical Provider LAB BODY FLUIDS AND STOOL S ORDERABLES Final Result EXTERNAL LAB from Last 3 Months or Most Recently Relevant to Health Maintenance Insurance [employer] [place] MEDICARE [facility] Address: [address] [address] [place] [address] [employer] [place] MEDICARE MEDICARE [facility] Advance Directives For more information, please contact: [phone] * Full Code (Latest Code Status on File) Date Activated Date Inactivated Comments 10/26/2023 9:52 AM 10/27/2023 5:11 AM Care Teams Klystrom Tube Tester Relationship Specialty Start Date End Date Joan Sepulveda MD PCP - General Family Practice 07/20/22
--- OUTSIDE RECORDS SUMMARY | 2024-07-03 15:36 | XMS_ITS | Clinical Summary ---
Author Organization [facility] [employer] Address [address] [place] [address] Care Team Providers Care Horse Exerciser Name Role Phone Elise Hughes MD Primary Care Provider [phone] Source Comments [facility] [employer],non-owned Affiliates and Associated Physician Practices is amultiple site organization consisting of ambulatory clinics and hospital sitesin [place], [place], [place] and [place]. This disclosure is being madepursuant to the Care Everywhere program and may not contain all information available regarding this patient. Last updated 17.[facility] [employer] Allergies No known active allergies Medications * Be aware that medications may not be up to date on this document. Alwaysverify current medications with the patient. hydrochlorothia zide (HYDRODIURIL) 25 MG tablet 1 Tab once daily. 90 Tab 1 07/01/2013 Active ibuprofen (MOTRIN) 600 MG tablet 1 Tab 3 times daily. 360 Tab 0 07/22/2013 Active blood glucose (FREESTYLE TEST STRIP) test strip Use 1 Strip. 100 Strip 3 10/08/2013 Active Lancets 30G MISC Use. 1 Box 3 10/08/2013 Active oxycodone, immediate release, 10 MG TABS tablet 0 05/18/2014 Active GRALISE 600 MG tablet 1 Tab once daily. 05/15/2014 Active metFORMIN (GLUCOPHAGE) 500 MG tablet Take 1 Tab by mouth 2 times daily with morning and evening meal 180 Tab 1 08/06/2014 Active amitriptyline (ELAVIL) 100 MG tablet TAKE 1 TABLET BY MOUTH AT BEDTIME 90 Tab 1 08/27/2014 Active buPROPion SR 12hr (WELLBUTRIN-SR) 150 MG tablet TAKE 1 TABLET BY MOUTH TWICE DAILY 180 Tab 1 08/27/2014 Active buPROPion SR 12hr (WELLBUTRIN-SR) 150 MG tablet 1 Tab 2 times daily 180 Tab 1 09/29/2014 Active amitriptyline (ELAVIL) 100 MG tablet 1 Tab at bedtime 90 Tab 1 11/18/2014 Active metFORMIN (GLUCOPHAGE) 500 MG tablet TAKE 1 TABLET TWICE A DAY WITH MORNING AND EVENING MEALS 180 Tab 0 02/01/2015 Active KLOR-CON M10 10 MEQ tablet TAKE 1 TABLET DAILY 90 Tab 0 03/05/2015 Active pravastatin (PRAVACHOL) 40 MG tablet Take 1 Tab by mouth at bedtime 90 Tab 0 04/22/2015 Active Active Problems Problem Noted Date Diagnosed Date Diabetes mellitus type II, c ontrolled, with no complications 10/08/2013 History of breast biopsy 07/07/2011 B12 deficiency 03/03/2010 Depression 05/18/2009 Memory loss 02/19/2009 Hypertension 11/27/2008 Hyperlipidemia 06/15/2008 Chronic low back pain 06/15/2008 Overview (06/15/2008): S/p 5 back surgeries. On chronic narcotic treatment since 1995. S/p pain management, physical therapy, stimulator. Chronic pain 06/15/2008 Tobacco abuse 06/15/2008 Immunizations Immunization Administration Dates Next Due INFLUENZA VACCINE, TRIV. (AF LURIA, FLUZONE TRIVALENT; 6MO+) (IIV3) 12/08/2010,12/02/2009 PNEUMOCOCCAL PPSV23 04/22/2012 TDAP (7yrs+) 04/01/2013 Family History Medical History Relation Name Comments CAD (Coronary Artery Disease) Father Heart Failure Father Stroke Father Other Mother alzheimer's Relation Name Status Comments Father Mother Social History Tobacco Use Types Packs/Day Years Used Date Smoking Tobacco: Every Day Cigarettes Tobacco Cessation:Ready to Q uit: No; Counseling Given: Yes Alcohol Use Standard Drinks/Week Comments No 0 (1 standard drink = 0.6 oz pur e alcohol) Comments No Sex and Gender Information Value Date Recorded Sex Assigned at Not on file 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 Gender Identity Not on file Sexual Orientation Not on file 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 Start Date Job End Date 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 Not on file 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 Not on file Not on file Last Filed Vital Signs Vital Sign Reading Time Taken Comments Blood Pressure 144/84 05/28/2014 2:27 PM CDT Pulse 96 05/28/2014 2:27 PM CDT Temperature 36.9 C (98.4 F) 10/12/2011 11:13 AM CDT Respiratory Rate 16 05/18/2009 10:38 AM CDT Oxygen Saturation 97% 05/28/2014 2:27 PM CDT Inhaled Oxygen Concentration - - Weight 73.9 kg (163 lb) 05/28/2014 2:27 PM CDT Height 160 cm (5' 2.99) 05/28/2014 2:27 PM CDT Body Mass Index 28.88 05/28/2014 2:27 PM CDT Plan of Treatment Health Maintenance Due Date Last Done Comments BONE DENSITY TESTING 1950 COLOGUARD (AGES 45-75) - COLON CA SCREENING [address] COLONOGRAPHY - COLON CA SCREENING 1950 FIT - COLON CA SCREENING 1950 FLEX SIG - COLON CA SCREENING 1950 ZOSTER VACCINE (1 of 2) 2002 PNEUMOCOCCAL VACCINE 50+ (2 of 2 - PCV) 04/22/2013 04/22/2012 DIABETES-FOOT EXAM WITH MONOFILAMENT 10/08/2013 MAMMOGRAM 07/24/2014 07/24/2012, 12/20/2009 COLONOSCOPY - COLON CA SCREENING 10/13/2014 10/13/2004 (Previously completed) Colorectal Cancer Screening 10/13/2014 DIABETES-HGB A1C 11/27/2014 05/28/2014, , 04/30/2013, Additional history exists DIABETES-SERUM CREATININE 05/29/20152014, 07/01/2013, 04/30/2013, Additional history exists DTAP/TDAP/TD VACCINES (2 - Td or Tdap) 04/01/2023 04/01/2013 COVID-19 VACCINE ( - season) 2023 DEPRESSION SCREENING 02/06/2024 DIABETES - URINE PROTEIN SCREENING 02/06/2024 05/28/2014 INFLUENZA VACCINE (Season Ended) 2024 12/08/2010, 12/02/2009 Respiratory Syncytial Virus (RSV) Vaccine Pt: or over 60 yrs (1 - 1-dose 75+ series) 11/11/2027 HEPATITIS C SCREENING Completed 07/30/2012 HEPATITIS B VACCINE Aged Out No longe r eligible based on patient's age to complete this topic HIB VACCINE Aged Out No longer eligi ble based on patient's age to complete this topic HPV VACCINE Aged Out No longer eligi ble based on patient's age to complete this topic MENINGOCOCCAL (Group B) VACCINE SHARED DECISION-MAKING Aged Out No longer eligible based on patient's age to complete this topic MENINGOCOCCAL GROUPS A/C/Y/W VACCINE Aged Out No longer eligible based on patient's age to complete this topic Goals Goal Patient Goal Type Associated Problems Recent Progress Patient-Stated? Author Plan meals Lifestyle Not on track( 014 9:43 AM CDT) No Solange Beverly MA Quit smoking / using tobacco Lifestyle No Solange Beverly MA Procedures Procedure Name Priority Date/Time Associated Diagnosis Comments MICROALB/CREAT RATIO URINE RANDOM PANEL Routine 05/28/2014 2:54 PM CDT Diabetes mellitus type II, controlled, with no complications COMPREHENSIVE METABOLIC PANEL Routine 05/28/2014 2:54 PM CDT Diabetes mellitus type II, controlled, with no complications Hyperlipidemia Hypertension Chronic pain HEMOGLOBIN A1C Routine 05/28/2014 2:54 PM CDT Diabetes mellitus type II, controlled, with no complications HEPATITIS C ANTIBODY Routine 07/30/2012 12:35 PM CDT Need for hepatitis C screening test MAMMOGRAPHY ORDER Routine 07/24/2012 from Last 3 Months or Most Recently Relevant to Health Maintenance Results * (ABNORMAL) MICROALB/CREAT RATIO URINE RANDOM PANEL (05/28/2014 2:54 PM CDT) Creatinine Urine 39.4 15.0 - 278.0 mg/dL [facility] INSURANCE BILL Microalbumin Urine 15.9 0.0 - 17.0 ug/mL [facility] INSURANCE BILL Microalbumin/Crea tinine Ratio 40.4(H) 0.0 - 30.0 mg/g creat [facility] INSURANCE BILL Urine specimen (specimen) URINE SPECIMEN OBTAINED BY CLEAN CATCH PROCEDURE / Unknown 05/28/2014 2:54 PM CDT 05/28/2014 5:41 PM CDT Narrative Resulting Agency Comment [facility] [address] [phone] Elise Hughes MD LAB - URINE CHEMISTRY ORDERABLE S Final Result Performing Organization Address City/[facility]/ZIP Co de Phone Number [facility] INSURANCE BILL [address] [place] [address] * (ABNORMAL) HEMOGLOBIN A1C (05/28/2014 2:54 PM CDT) Hemoglobin A1c 5.9(H) 4.8 - 5.6 % [facility] INSURANCE BILL Comment: . Increased risk for diabetes: 5.7 - 6.4 Diabetes: >6.4 Glycemic control for adults with diabetes: <7.0 Whole blood specimen (specimen) BLOOD SPECIMEN WITH EDTA / Unknown 05/28/2014 2:54 PM CDT 05/28/2014 5:41 PM CDT Narrative Resulting Agency Comment [facility] [address] [phone] Elise Hughes MD LAB - CHEMISTRY ORDERABLES Casandra l Result Performing Organization Address [facility] Co de Phone Number [facility] INSURANCE BILL [address] [place] [address] * (ABNORMAL) COMPREHENSIVE METABOLIC PANEL (05/28/2014 2:54 PM CDT) Glucose 103(H) 65 - 99 mg/dL [facility] INSURANCE BILL BUN 12 8 - 27 mg/dL [facility] INSURANCE BILL Creatinine 0.87 0.57 - 1.00 mg/dL [facility] INSURANCE BILL eGFR by MDRD 72 >59 mL/min/1.7 3 [facility] INSURANCE BILL eGFR by MDRD 83 >59 mL/min/1.7 3 [facility] INSURANCE BILL BUN/Creatinine Ratio 14 11 - 26 [facility] INSURANCE BILL Sodium 142 134 - 144 mmol/L [facility] INSURANCE BILL Potassium 3.6 3.5 - 5.2 mmol/L [facility] INSURANCE BILL Chloride 100 97 - 108 mmol/L [facility] INSURANCE BILL CO2 22 18 - 29 mmol/L [facility] INSURANCE BILL Calcium 10.0 8.7 - 10.3 mg/dL [facility] INSURANCE BILL Protein Total 7.7 6.0 - 8.5 g/dL [facility] INSURANCE BILL Albumin 5.2(H) 3.6 - 4.8 g/dL [facility] INSURANCE BILL Globulin Total 2.5 1.5 - 4.5 g/dL [facility] INSURANCE BILL Albumin/Globulin Ratio 2.1 1.1 - 2.5 [facility] INSURANCE BILL Bilirubin Total 0.3 0.0 - 1.2 mg/dL [facility] INSURANCE BILL Alkaline Phosphatase 112 39 - 117 IU/L [facility] INSURANCE BILL AST 15 0 - 40 IU/L [facility] INSURANCE BILL ALT 14 0 - 32 IU/L [facility] INSURANCE BILL Blood specimen (specimen) BLOOD SPECIMEN / Unknown 05/28/2014 2:54 PM CDT 05/28/2014 5:41 PM CDT Narrative Resulting Agency Comment [address] [phone] [place] Elise Hughes MD LAB - CHEMISTRY ORDERABLES Casandra l Result [facility] INSURANCE BILL [address] [place] [address] * HEPATITIS C ANTIBODY (07/30/2012 12:35 PM CDT) Hepatitis C Antibody <0.1 0.0 - 0.9 s/co ratio [facility] INSURANCE BILL Comment: Negative: < 0.8 Indeterminate 0.8 - 0.9 Positive: > 0.9 . In order to reduce the incidence of a false positive result, the CDC recommends that all s/co ratios between 1.0 and 10.9 be confirmed by a more specific supplemental or PCR testing. [facility] offers HCV Ab w/Reflex to Verification test #[id number]. Blood specimen (specimen) BLOOD SPECIMEN / Unknown 07/30/2012 12:35 PM CDT 07/30/2012 5:49 PM CDT Narrative Resulting Agency Comment [facility] [address] [phone] us Elise Hughes MD LAB - CHEMISTRY ORDERABLES Casandra l Result [facility] INSURANCE BILL [address] [place] [address] * MAMMOGRAPHY ORDER (07/24/2012) Anatomical Region Laterality Modality Other us Elise Hughes MD MAMMO ORDERABLES Final Result from Last 3 Months or Most Recently Relevant to Health Maintenance Insurance MEDICARE [facility] Care Teams Horse Exerciser Relationship Specialty Start Date End Date Elise Hughes MD PCP - General 10/26/08
--- NOTE | 2024-07-03 15:40 | ECG_ITS ---
Test Date: 2024-07-03 16:08:25 Measurements Intervals [place] Rate: 92 P: 66 WV: 165 QRS: -9 QRSD: 83 T: 66 QT: 356 QTc: 441 Interpretive Statements SINUS RHYTHM PROBABLE SEPTAL MYOCARDIAL INFARCTION , PROBABLY OLD [35 ms Q WAVE IN V1/V2] No previous ECG available for comparison Electronically Signed On 07-04-2024 11:09:44 CDT by Yimi Vela M.D.
[2024-07-03 16:20] LABS: Basophils Percent Auto 0.6 % (0.2-1.2); Eosinophils Absolute Auto 0.1 K/mm3 (0-0.3); Eosinophils Percent Auto 1.3 % (0-4.4); Hematocrit 44.3 % (37.0-47.0); Hemoglobin 14.8 g/dL (12.0-15.0); Immature Granulocyte Absolute 0.02 K/mm3 (0.00-0.031); Immature Granulocyte Percent A 0.3 % (0-0.5); Lymphocytes Absolute Auto 1.16 K/mm3 (0.9-3.2); Lymphocytes Percent Auto 16.6 % (18.3-44.2); Mean Corpuscular HGB Conc 33.4 g/dl (32-36); Mean Corpuscular Hemoglobin 30.3 pg (26-34); Mean Corpuscular Volume 90.6 fl (80-100); Mean Platelet Volume 11.1 fl (7.4-10.4); Monocytes Absolute Auto 0.4 K/mm3 (0.1-0.6); Monocytes Percent Auto 6.2 % (2.6-8.5); Neutrophils Absolute Auto 5.2 K/mm3 (1.3-6.7); Platelet Count Result 164 k/mm3 (150-375); Red Blood Count 4.89 M/mm3 (4.2-5.4); Red Cell Distribution Width 13.2 % (11.5-14.5)
[2024-07-03 16:32] LABS: Alanine Aminotransferase 21 U/L (6-35); Albumin Level 4.8 g/dL (3.5-5.1); Alkaline Phosphatase 85 U/L (38-126); Anion Gap 8 mmol/L (4-12); Aspartate Amino Transferase 34 U/L (14-36); Bilirubin,Total 0.5 mg/dL (0.2-1.3); Blood Urea Nitrogen 12 mg/dL (7-17); Calcium 9.7 mg/dL (8.4-10.2); Carbon Dioxide 27 mmol/L (22-30); Chloride 106 mmol/L (98-107); Estimated CRCL calculation 43 ml/min; Estimated Glomerular Filt Rate > 60; Glucose 145 mg/dL (65-110); Lipase 144 U/L (23-300); Potassium 3.8 mmol/L (3.4-5.0); Sodium 141 mmol/L (137-145)
[2024-07-03 16:35] LABS: INR 0.9; Partial Thromboplastin Time 28.1 Seconds (22.3-36.8); Prothrombin Time 12.6 Seconds (11.1-14.7)
[2024-07-03 16:49] LABS: Troponin I 0.038 ng/mL (0.000-0.034)
--- OUTSIDE RECORDS SUMMARY | 2024-07-03 18:33 | XMS_ITS | Encounter Summary ---
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
--- OUTSIDE RECORDS SUMMARY | 2024-07-03 18:33 | XMS_ITS | Clinical Summary ---
Author Organization [facility] [employer] Address [address] [place] [address] Care Team Providers Care Guide Dog Mobility Instructor Name Role Phone Elise Hughes MD Primary Care Provider [phone] Source Comments [facility] [employer],non-owned Affiliates and Associated Physician Practices is amultiple site organization consisting of ambulatory clinics and hospital sitesin [place], [place] and [place]. This disclosure is being madepursuant to the Care Everywhere program and may not contain all information available regarding this patient. 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 Increased risk for diabetes: 5.7 - 6.4 Diabetes: >6.4 Glycemic control for adults with diabetes: <7.0 Whole blood specimen (specimen) BLOOD SPECIMEN WITH EDTA / Unknown 05/28/2014 2:54 PM CDT 05/28/2014 5:41 PM CDT Narrative Resulting Agency Comment [facility] [address] [phone] Elise Hughes MD LAB - CHEMISTRY ORDERABLES Casandra l Result Performing Organization Address [facility] Co de Phone Number [facility] INSURANCE BILL [address] [place] [address] * (ABNORMAL) COMPREHENSIVE METABOLIC PANEL (05/28/2014 2:54 [...] 5:41 PM CDT Narrative Resulting Agency Comment [address] [phone] us Elise Hughes MD LAB - CHEMISTRY ORDERABLES Casandra l Result [facility] INSURANCE BILL [address] [place] [address] * HEPATITIS C ANTIBODY (07/30/2012 12:35 PM [...] a more specific supplemental or PCR testing. [facility] offers [facility] Ab w/Reflex to Verification test #[id number]. Blood specimen (specimen) BLOOD SPECIMEN / Unknown 07/30/2012 12:35 PM CDT 07/30/2012 5:49 PM CDT Narrative Resulting Agency Comment [facility] [address] [phone] us Elise Hughes MD LAB - CHEMISTRY ORDERABLES Casandra l Result [facility] INSURANCE BILL [address] [place] [address] * MAMMOGRAPHY ORDER (07/24/2012) Anatomical Region Laterality Modality Other us Elise Hughes MD MAMMO ORDERABLES Final Result from Last 3 Months or Most Recently Relevant to Health Maintenance Insurance MEDICARE [facility] Care Teams Guide Dog Mobility Instructor Relationship Specialty Start Date End Date Elise Hughes MD PCP - General 10/26/08
--- OUTSIDE RECORDS SUMMARY | 2024-07-03 18:33 | XMS_ITS | Clinical Summary ---
Author Organization [facility] [place] 155 [facility] lt Address [address] [place] [address] Care Team Providers Care Vehicle Service Agent Name Role Phone Joan Sepulveda MD Primary [...] cessation. Discussed different types of medications & uiat-yia-dblrojb aides to help with cessation. Moderate episode [...] & Plan (07/12/2020 4:28 PM CDT): 04/25/18: zb=944 hdl=33 bz=824 ykg=708 Tc/hdl=6.6 Pravastatin 40mg daily. We will check [...] medication compliance. Discussed use of a pill city planner and having family remind her regularly [...] Plan (07/12/2020 4:11 PM CDT): Referral to [facility] for colonoscopy. 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 [...] on file Legal Sex Female 3:56 AM TRAFFIC SIGN SUPERVISOR Gender Identity Not on file Sexual Orientation Not on file Obstetrics History Last Filed Vital Signs Vital Sign Reading Time Taken Comments Blood Pressure 203/84 12/12/2023 1:48 PM TRAFFIC SIGN SUPERVISOR Pulse 55 12/12/2023 1:48 PM TRAFFIC SIGN SUPERVISOR Temperature 36.6 C (97.9 F) 10/26/2023 8:50 AM CDT Respiratory Rate 18 12/12/2023 1:48 PM TRAFFIC SIGN SUPERVISOR Oxygen Saturation 98% 12/12/2023 1:48 PM TRAFFIC SIGN SUPERVISOR Inhaled Oxygen Concentration - - Weight 62.5 kg (137 lb 12.8 oz) 12/12/2023 1:48 PM TRAFFIC SIGN SUPERVISOR Height 160 cm (5' 3) 12/12/2023 1:48 PM TRAFFIC SIGN SUPERVISOR Body Mass Index 24.41 12/12/2023 1:48 PM TRAFFIC SIGN SUPERVISOR Plan of Treatment Health Maintenance Due Date [...] ORDERABLES F inal Result Performing Organization Address City/[facility]/ZIP Co de Phone Number [facility] [address] [phone] * (ABNORMAL) Lipid panel (08/23/2022 2:03 PM CDT) Pathologist [facility] Cholesterol 248(H) <200 mg/dL [facility] HDL 46(L) > OR = 50 mg/dL [facility] Triglycerides 169(H) <150 mg/dL [employer] [place] LDL 170(H) mg/dL (calc) [employer] [place] Comment: Reference range: <100 Desirable range <100 mg/dL for primary prevention; <70 mg/dL for patients with CHD or diabetic patients with > or = 2 CHD risk factors. LDL-C is now calculated using the Iraida calculation, which is a validated novel method providing better accuracy than the Friedewald equation in the estimation of LDL-C. Baldemar ROSENBERG et al. BRENDON. 2013;310(19): 7171-1240 (http://education.Mechanology/faq/OSK707) Chol/HDL ratio 5.4(H) <5.0 (calc) [facility] [place] Non-HDL, (LDL+VLDL) 202(H) <130 mg/dL (calc) [facility] [place] Comment: For patients with diabetes plus 1 major ASCVD risk factor, treating to a non-HDL-C goal of <100 mg/dL (LDL-C of <70 mg/dL) is considered a therapeutic option. Blood 08/23/2022 2:03 PM CDT 08/23/2022 2:04 PM CDT Narrative [facility] - 08/25/2022 1:49 AM CDT FASTING:YES FASTING: YES Joan Sepulveda MD LAB BLOOD ORDERABLES F inal Result Performing Organization Address City/[facility]/ZIP Co de Phone Number [facility] [address] [place] [address] * (ABNORMAL) Comprehensive metabolic panel (08/23/2022 2:03 PM CDT) Glucose 102(H) 65 - 99 mg/dL [facility] Comment: Fasting reference interval For someone without known diabetes, a glucose value between 100 and 125 mg/dL is consistent with prediabetes and should be confirmed with a follow-up test. BUN 11 7 - 25 mg/dL [facility] Creatinine 1.24(H) 0.50 - 1.05 mg/dL [facility] eGFR 47(L) > OR = 60 mL/min/1.7 3m2 [facility] Comment: The eGFR is based on the CKD-EPI 2020 equation. To calculate the new eGFR from a previous Creatinine or Cystatin C result, go to https://www.kidney.org/professionals/ kdoqi/gfr%5Fcalculator BUN/creat ratio 9 6 - 22 (calc) [facility] Sodium 139 135 - 146 mmol/L [facility] Potassium, pl 3.7 3.5 - 5.3 mmol/L [facility] Chloride 99 98 - 110 mmol/L [employer] [facility] CO2 30 20 - 32 mmol/L [facility] Calcium 10.0 8.6 - 10.4 mg/dL [facility] Protein, sr 7.4 6.1 - 8.1 g/dL [facility] Albumin 4.9 3.6 - 5.1 g/dL [facility] GLOBULIN 2.5 1.9 - 3.7 g/dL (calc) [facility] Alb/glob ratio 2.0 1.0 - 2.5 (calc) [facility] Bilirubin, total 0.9 0.2 - 1.2 mg/dL [facility] Alk phos 71 37 - 153 U/L [facility] AST 14 10 - 35 U/L [facility] ALT (SGPT) 11 6 - 29 U/L [facility] Blood 08/23/2022 2:03 PM CDT 08/23/2022 2:04 PM CDT Narrative [facility] - 08/25/2022 1:49 AM CDT FASTING:YES FASTING: YES Joan Sepulveda MD LAB BLOOD ORDERABLES F inal Result [facility] [address] [place] [address] * Occult Blood, Fecal (FIT) (05/02/2018) Stool Historical Provider LAB BODY FLUIDS AND STOOL S ORDERABLES Final Result EXTERNAL LAB from Last 3 Months or Most Recently Relevant to Health Maintenance Insurance [facility] MEDICARE [place] [employer] [place] MEDICARE [employer]ICARE [place] Advance Directives For more information, please contact: [phone] * Full Code (Latest Code Status on File) Date Activated Date Inactivated Comments 10/26/2023 9:52 AM 10/27/2023 5:11 AM Care Teams Vehicle Service Agent Relationship Specialty Start Date End Date Joan Sepulveda MD PCP - General Family Practice 07/20/22
--- OUTSIDE RECORDS SUMMARY | 2024-07-03 18:33 | XMS_ITS | Referral Summary ---
Author Organization [facility] [place] 155 [facility] lto Address [address] [place] [address] Care Team Providers Care Quality Assurance Intern Name Role Phone Joan Sepulveda MD Primary [...] cessation. Discussed different types of medications & vdwb-jvr-cnlnjhh aides to help with cessation. Moderate episode [...] & Plan (07/12/2020 4:28 PM CDT): 04/25/18: kh=510 hdl=33 gy=294 xty=940 Tc/hdl=6.6 Pravastatin 40mg daily. We will check [...] medication compliance. Discussed use of a pill c4 planner and having family remind her regularly [...] Plan (07/12/2020 4:11 PM CDT): Referral to [facility] for colonoscopy. Aware that their office [...] on file Legal Sex Female 3:56 AM QUANTITATIVE RESEARCH ANALYST Gender Identity Not on file Sexual Orientation Not on file Last Filed Vital Signs Vital Sign Reading Time Taken Comments Blood Pressure 203/84 12/12/2023 1:48 PM QUANTITATIVE RESEARCH ANALYST Pulse 55 12/12/2023 1:48 PM QUANTITATIVE RESEARCH ANALYST Temperature 36.6 C (97.9 F) 10/26/2023 8:50 AM CDT Respiratory Rate 18 12/12/2023 1:48 PM QUANTITATIVE RESEARCH ANALYST Oxygen Saturation 98% 12/12/2023 1:48 PM QUANTITATIVE RESEARCH ANALYST Inhaled Oxygen Concentration - - Weight 62.5 kg (137 lb 12.8 oz) 12/12/2023 1:48 PM QUANTITATIVE RESEARCH ANALYST Height 160 cm (5' 3) 12/12/2023 1:48 PM QUANTITATIVE RESEARCH ANALYST Body Mass Index 24.41 12/12/2023 1:48 PM QUANTITATIVE RESEARCH ANALYST Plan of Treatment Not on file Procedures [...] ORDERABLES F inal Result [facility] [address] [phone] * (ABNORMAL) Lipid panel (08/23/2022 2:03 PM CDT) Cholesterol 248(H) <200 mg/dL [facility] HDL 46(L) > OR = 50 mg/dL [facility] Triglycerides 169(H) <150 mg/dL [facility] LDL 170(H) mg/dL (calc) [facility] Comment: Reference range: <100 Desirable range <100 mg/dL for primary prevention; <70 mg/dL for patients with CHD or diabetic patients with > or = 2 CHD risk factors. LDL-C is now calculated using the Iraida calculation, which is a validated novel method providing better accuracy than the Friedewald equation in the estimation of LDL-C. Baldemar ROSENBERG et al. BRENDON. 2013;310(19): 5039-8548 (http://education.Smart Wire Grid/faq/ZYW867) Chol/HDL ratio 5.4(H) <5.0 (calc) [facility] Non-HDL, (LDL+VLDL) 202(H) <130 mg/dL (calc) [facility] Comment: For patients with diabetes plus 1 major ASCVD risk factor, treating to a non-HDL-C goal of <100 mg/dL (LDL-C of <70 mg/dL) is considered a therapeutic option. Blood 08/23/2022 2:03 PM CDT 08/23/2022 2:04 PM CDT Narrative [facility] - 08/25/2022 1:49 AM CDT FASTING:YES FASTING: YES us Jaon Sepulveda MD LAB BLOOD ORDERABLES F inal Result [facility] [address] [place] [address] * (ABNORMAL) Comprehensive metabolic panel (08/23/2022 2:03 PM CDT) Glucose 102(H) 65 - 99 mg/dL [facility] Comment: Fasting reference interval For someone without known diabetes, a glucose value between 100 and 125 mg/dL is consistent with prediabetes and should be confirmed with a follow-up test. BUN 11 7 - 25 mg/dL [facility] Creatinine 1.24(H) 0.50 - 1.05 mg/dL [facility] eGFR 47(L) > OR = 60 mL/min/1.7 3m2 [facility] Comment: The eGFR is based on the CKD-EPI 2020 equation. To calculate the new eGFR from a previous Creatinine or Cystatin C result, go to https://www.kidney.org/professionals/ kdoqi/gfr%5Fcalculator BUN/creat ratio 9 6 - 22 (calc) [facility] Sodium 139 135 - 146 mmol/L [facility] Potassium, pl 3.7 3.5 - 5.3 mmol/L [facility] Chloride 99 98 - 110 mmol/L [facility] CO2 30 20 - 32 mmol/L [facility] Calcium 10.0 8.6 - 10.4 mg/dL [facility] [place] Protein, sr 7.4 6.1 - 8.1 g/dL [facility] Albumin 4.9 3.6 - 5.1 g/dL [facility] [place] GLOBULIN 2.5 1.9 - 3.7 g/dL (calc) [facility] Alb/glob ratio 2.0 1.0 - 2.5 (calc) [facility] Bilirubin, total 0.9 0.2 - 1.2 mg/dL [employer] [facility] Alk phos 71 37 - 153 U/L [facility] AST 14 10 - 35 U/L [facility] ALT (SGPT) 11 6 - 29 U/L [facility] Blood 08/23/2022 2:03 PM CDT 08/23/2022 2:04 PM CDT Narrative [facility] - 08/25/2022 1:49 AM CDT FASTING:YES FASTING: YES us Joan Sepulveda MD LAB BLOOD ORDERABLES F inal Result [facility] [address] [place] [address] * Occult Blood, Fecal (FIT) (05/02/2018) Stool us Historical Provider LAB BODY FLUIDS AND STOOL S ORDERABLES Final Result EXTERNAL LAB from Last 3 Months or Most Recently Relevant to Health Maintenance Insurance [place] MEDICARE [place] MEDICARE MEDICARE [facility] Advance Directives For more information, please contact: [phone] * Full Code (Latest Code Status on File) Date Activated Date Inactivated Comments 10/26/2023 9:52 AM 10/27/2023 5:11 AM Care Teams Quality Assurance Intern Relationship Specialty Start Date End Date Joan Sepulveda MD PCP - General Family Practice 07/20/22
[2024-07-03] MEDS: ASPIRIN 81 MG CHEWABLE TABLET 324 MG PO (18:52)
--- NOTE | 2024-07-03 18:56 | ECG_ITS ---
Test Date: 2024-07-03 18:56:21 Measurements Intervals [place] Rate: 70 P: 63 RI: 152 QRS: -8 QRSD: 85 T: 58 QT: 401 QTc: 433 Interpretive Statements SINUS RHYTHM SEPTAL MYOCARDIAL INFARCTION , PROBABLY OLD [40+ ms Q WAVE IN V1/V2] Compared to ECG 07/03/2024 16:08:25 No significant changes Electronically Signed On 07-04-2024 15:02:45 CDT by Yimi Vela M.D.
[2024-07-03 19:32] LABS: Troponin I 0.077 ng/mL (0.000-0.034)
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
[2024-07-03 20:31] LABS: Basophils Percent Auto 0.7 % (0.2-1.2); Eosinophils Absolute Auto 0.1 K/mm3 (0-0.3); Eosinophils Percent Auto 1.2 % (0-4.4); Hematocrit 43.1 % (37.0-47.0); Hemoglobin 14.6 g/dL (12.0-15.0); Immature Granulocyte Absolute 0.02 K/mm3 (0.00-0.031); Immature Granulocyte Percent A 0.3 % (0-0.5); Lymphocytes Absolute Auto 2.03 K/mm3 (0.9-3.2); Lymphocytes Percent Auto 34.7 % (18.3-44.2); Mean Corpuscular HGB Conc 33.9 g/dl (32-36); Mean Corpuscular Hemoglobin 30.5 pg (26-34); Mean Platelet Volume 10.8 fl (7.4-10.4); Monocytes Absolute Auto 0.5 K/mm3 (0.1-0.6); Monocytes Percent Auto 8.2 % (2.6-8.5); Neutrophils Absolute Auto 3.2 K/mm3 (1.3-6.7); Neutrophils Percent Auto 54.9 % (45.5-73.1); Platelet Count Result 151 k/mm3 (150-375); Red Blood Count 4.79 M/mm3 (4.2-5.4); Red Cell Distribution Width 13.2 % (11.5-14.5); White Blood Count 5.9 K/mm3 (4.5-10.0)
[2024-07-03 20:43] LABS: Partial Thromboplastin Time 28.7 Seconds (22.3-36.8)
[2024-07-03] MEDS: HEPARIN SOD/D5W 100 UNITS/ML 25,000 UNITS/250 ML BAG 7 UNITS IV CONT (20:50)
[2024-07-03] MEDS: HEPARIN SODIUM 5,000 UNITS/ML VIAL 3500 UNITS IV PUSH (20:53)
[2024-07-03] MEDS: carvediloL 6.25 MG TABLET PO (22:09)
[2024-07-03] MEDS: MELATONIN 5 MG TABLET PO (22:10)
--- NOTE | 2024-07-03 22:10 | PC.NURSE ---
ARYAN MUNO[facility] PHARM AT THIS TIME
--- NOTE | 2024-07-03 22:30 | ECG_ITS ---
Test Date: 2024-07-03 22:32:55 Measurements Intervals [place] Rate: 66 P: 65 [place]: 168 QRS: -11 QRSD: 83 T: 57 QT: 421 QTc: 444 Interpretive Statements SINUS RHYTHM SEPTAL MYOCARDIAL INFARCTION , OF INDETERMINATE AGE [40+ ms Q WAVE IN V1/V2] Compared to ECG 07/03/2024 18:56:21 No significant changes Electronically Signed On 07-04-2024 15:04:40 CDT by Yimi Vela M.D.
[2024-07-03 23:22] LABS: Troponin I 0.064 ng/mL (0.000-0.034)
[2024-07-04] VITALS (31 sets, daily range): BP systolic 93–171; BP diastolic 62–97; PULSE 54–84; RESP 13–22; TEMP 36.4–37; O2SAT 94–99
--- NOTE | 2024-07-04 | ECHO_ITS ---
Patient Info Name: Linnette Harding Age: 73 years : 1950 Gender: Female Ht: 63 in Wt: 134 lbs BSA: 1.65 m2 HR: 67 bpm BP: 133 / 79 mmHg Technical Quality: Good Exam Date: 07/04/2024 3:32 PM Patient Status: I Admit Date: 07/04/2024 Exam Type: CA echo doppler color flow Complete two-dimensional, color flow and Doppler transthoracic echocardiogram is performed. Staff Referring Physician: Luz An [facility] E Marketing Specialist: Lien Vazquez Attending Provider: Vy Villareal Summary 1. Complete two-dimensional, color flow and Doppler transthoracic echocardiogram is performed. 2. Left ventricular chamber dimension is normal. 3. Left ventricular systolic function is normal, estimated at 65-70. 4. The left ventricular diastolic function is grade I diastolic dysfunction. 5. E/e' 9 is minimally elevated. 6. There is mild aortic valve sclerosis. 7. There is trace mitral valve regurgitation. 8. There is trace tricuspid valve regurgitation. 9. No pulmonary hypertension, estimated pulmonary arterial systolic pressure is 17 mmHg. Left Ventricle E/e' 9 is minimally elevated. Left ventricular chamber dimension is normal. Left ventricular systolic function is normal, estimated at 65-70. The left ventricular diastolic function is grade I diastolic dysfunction. Right Ventricle Right ventricular chamber dimension is normal. Right ventricular systolic function is normal. Left Atria Left atrial chamber dimension is normal. Right Atria Right atrial chamber dimension is normal. Aortic Valve The aortic valve is trileaflet. There is mild aortic valve sclerosis. There is no aortic valve stenosis. There is no aortic valve regurgitation. Pulmonic Valve There is no pulmonic regurgitation. Mitral Valve There is no mitral valve stenosis. There is trace mitral valve regurgitation. Tricuspid Valve There is trace tricuspid valve regurgitation. No pulmonary hypertension, estimated pulmonary arterial systolic pressure is 17 mmHg. Pericardium/Pleural There is no pericardial effusion. Inferior Vena Cava Normal inferior vena cava with >50% collapse upon inspiration consistent with normal right atrial pressure, 5 mmHg. Aorta The aortic root size at the sinus of Valsalva is normal. Left Ventricular Outflow Tract Name Value Normal LVOT 2D LVOT Diameter 2.0 cm LVOT Doppler LVOT Peak Velocity 95 cm/s LVOT Peak Gradient 4 mmHg LVOT Mean Gradient 3 mmHg LVOT VTI 24 cm LVOT VTI/AV VTI Ratio 0.8 LVOT Stroke Volume 71 ml LVOT CO 14.1 l/min LVOT CI 8.5 l/min/m2 Pulmonic Valve Name Value Normal PV Doppler PV Peak Velocity 100 cm/s PV Peak Gradient 4 mmHg Mitral Valve Name Value Normal MV Diastolic Function MV E Peak Velocity 70 cm/s MV A Peak Velocity 84 cm/s MV E/A 0.8 MV Decel Time (PW) 328 ms MV Annular TDI MV E/e' (Septal) 10.9 MV E/e' (Lateral) 8.6 MV E/e' (Average) 9.7 Tricuspid Valve Name Value Normal TV Regurgitation Doppler TR Peak Velocity 175 cm/s TR Peak Gradient 12 mmHg Estimated PAP/RSVP RA Pressure 5 mmHg <=5 PA Systolic Pressure 17 mmHg <36 RV Systolic Pressure 17 mmHg <36 TV Annular TDI TV Lateral Shireen s' Velocity 11.3 cm/s >=9.5 Aorta Name Value Normal Ascending Aorta Ao Root Diameter (MM) 3.1 cm Ao Root Diam Index (MM) 1.9 cm/m2 Aortic Valve Name Value Normal AV Doppler AV Peak Velocity 137 cm/s AV Peak Gradient 7 mmHg AV Mean Gradient 5 mmHg AV VTI 29 cm AV Area (Cont Eq VTI) 2.5 cm2 >=3.0 AV Area (Cont Eq Chano) 2.1 cm2 AV DI (Chano) 0.70 AV Regurgitation 2D LVOT Area 3.0 cm2 Ventricles Name Value Normal LV Dimensions 2D/MM IVS Diastolic Thickness (2D) 1.0 cm 0.6-1.0 LVID Diastole (2D) 3.7 cm 3.8-5.2 LVIW Diastolic Thickness (2D) 1.1 cm 0.6-0.9 LVID Systole (2D) 2.3 cm 2.2-3.5 LVOT Diameter 2.0 cm LV Mass (2D Cubed) 130.04 g 67.00-162.00 LV Mass Index (2D Cubed) 79 g/m2 43-95 Relative Wall Thickness (2D) 0.61 <=0.42 LV Fractional Shortening/Ejection Fraction 2D/MM LV Fractional Shortening (2D) 40 % 27-45 LV EF (2D Teichholz) 71 % LV Diastolic Volume (4C MOD) 68 ml LV EF (4C MOD) 64 % LV Diastolic Volume (2C MOD) 74 ml LV EF (2C MOD) 72 % LV Diastolic Volume (BP MOD) 72 ml 46-106 LV Diastolic Volume Index (BP MOD) 44 ml/m2 29-61 LV Systolic Volume (BP MOD) 23 ml 14-42 LV Systolic Volume Index (BP MOD) 14 ml/m2 8-24 LV EF (BP MOD) 68 % 54-74 LV Diastolic Length (4C) 7.6 cm LV Systolic Length (4C) 6.4 cm LV Stroke Volume (4C MOD) 43 ml Atria Name Value Normal LA Dimensions LA Dimension (MM) 2.4 cm 2.7-3.8 LA Volume (4C A-L) 32 ml LA Volume (BP A-L) 38 ml RA Dimensions RA Systolic Major [place] Length (4C) 4.4 cm 2.2-2.8 RA Area (4C) 11.2 cm2 <=18.0 Report Signatures
--- NOTE | 2024-07-04 | ADMGEN ---
This patient, Linnette Harding, was admitted to IMU Room 213-01. Patient/family oriented to hospital policies and general routines including ID bracelet, bed and alarms, visiting hours, pain management, procedures, bathroom and other care routines, personal items, smoking policy, room service/diet, and visiting hours. Information on how to activate the Rapid Response Team has been discussed. Patient/Family are encouraged to report perceived risks to care and to ask questions if they do not understand what they are told or what they should do.
[2024-07-04 01:06] LABS: Troponin I 0.055 ng/mL (0.000-0.034)
[2024-07-04 03:20] LABS: Basophils Percent Auto 0.4 % (0.2-1.2); Eosinophils Absolute Auto 0.1 K/mm3 (0-0.3); Eosinophils Percent Auto 1.9 % (0-4.4); Hematocrit 42.2 % (37.0-47.0); Hemoglobin 14.1 g/dL (12.0-15.0); Immature Granulocyte Absolute 0.02 K/mm3 (0.00-0.031); Immature Granulocyte Percent A 0.4 % (0-0.5); Lymphocytes Absolute Auto 2.15 K/mm3 (0.9-3.2); Lymphocytes Percent Auto 40.3 % (18.3-44.2); Mean Corpuscular HGB Conc 33.4 g/dl (32-36); Mean Corpuscular Hemoglobin 29.9 pg (26-34); Mean Corpuscular Volume 89.6 fl (80-100); Mean Platelet Volume 10.7 fl (7.4-10.4); Monocytes Absolute Auto 0.4 K/mm3 (0.1-0.6); Monocytes Percent Auto 7.5 % (2.6-8.5); Neutrophils Absolute Auto 2.7 K/mm3 (1.3-6.7); Neutrophils Percent Auto 49.5 % (45.5-73.1); Platelet Count Result 142 k/mm3 (150-375); Red Blood Count 4.71 M/mm3 (4.2-5.4); Red Cell Distribution Width 13.4 % (11.5-14.5); White Blood Count 5.3 K/mm3 (4.5-10.0)
[2024-07-04 03:35] LABS: Cholesterol 140 mg/dL (0-200); HDL Direct 70 mg/dL; Triglycerides 137 mg/dL (<150)
[2024-07-04 03:46] LABS: LDL Cholesterol Direct 44 mg/dL
[2024-07-04] MEDS: HEPARIN SODIUM 5,000 UNITS/ML VIAL 2500 UNITS IV PUSH (04:02)
[2024-07-04] MEDS: carvediloL 6.25 MG TABLET PO ×2 (08:44→20:19)
[2024-07-04] MEDS: ASPIRIN 81 MG ENTERIC TABLET PO (08:45)
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
--- NOTE | 2024-07-04 10:24 | P.SEDATION_ITS ---
Moderate Sedation Note-Pt Data Patient Data Diagnosis: NSTEMI Present Complaint: NSTEMI Procedure to be performed/Plan: Coronary angiography, left heart cath, +/- PCI Allergies Allergy/AdvReac Type Severity Reaction Status Date / Time No Known Allergies Allergy Unknown Verified 01/07/24 22:43 Home Medications ?Medication ?Instructions ?Recorded ?Confirmed ?Type bupropion HCl 150 mg 24 hr tablet, 150 mg PO DAILY 07/04/24 07/04/24 History extended release donepezil 10 mg tablet 10 mg PO DAILY 07/04/24 07/04/24 History metoprolol succinate 50 mg 50 mg PO DAILY 07/04/24 07/04/24 History tablet,extended release 24 hr rosuvastatin 20 mg tablet 20 mg PO DAILY 07/04/24 07/04/24 History trazodone 50 mg tablet 50 mg PO HS 07/04/24 07/04/24 History Current Medications: Active Medications Aspirin (Aspirin 81 Mg Enteric Tablet) 81 mg PO QAM [facility] Last Admin: 07/04/24 08:45 Dose: 81 mg Carvedilol (Carvedilol 6.25 Mg Tablet) 6.25 mg PO Q12HR [facility] Last Admin: 07/04/24 08:44 Dose: 6.25 mg Heparin Sodium (Porcine) (Heparin Sodium 5,000 Units/Ml Vial) 4,000 units IV PUSH PRN PRN PRN Reason: aPTT less than 55 seconds Heparin Sodium (Porcine) (Heparin Sodium 5,000 Units/Ml Vial) 2,500 units IV PUSH PRN PRN PRN Reason: aPTT 55 - 70 seconds Last Admin: 07/04/24 04:02 Dose: 2,500 units Heparin Sodium/Dextrose (Heparin Sodium/D5w 100 Units/Ml) 25,000 units in 250 mls @ 8 mls/hr IV CONT .Q24H [facility]; Protocol Last Titration: 07/04/24 04:02 Dose: 800 units/hr, 8 mls/hr Melatonin (Melatonin 5 Mg Tablet) 5 mg PO HS [facility] Last Admin: 07/03/24 22:10 Dose: 5 mg Perflutren Lipid Microsphere (Perflutren Lipid Microspheres 1.5 Ml Vial Diluted To 10 Ml Total Volume) 0 ml IV PUSH ONCE PRN; Protocol PRN Reason: adequate visualization Stop: 07/07/24 10:16 Sedation/Anesthesia: No previous sedation/anesthesia problems (including family history). [facility] Past Medical History Medical History Tachycardia Hypertension Social History Social History Smoking packs per day: 1 Smoking cigarettes per day: 20.0 Smoking status: Former smoker Tobacco type: cigarettes Smoking end date: 02/06/12 Alcohol intake: never Substance use: never Do You Feel Safe in your Home?: No Lack of Transportation: No Lack of Food: Never True Current Housing: I Have Housing Concerned About Future Housing: No Difficulty Paying Gas/Electric Bills: No Difficulty Paying for Meds: No Currently Unemployed: No Education: High School Diploma/GED Difficulty w/ Childcare or Family Care: No Gender identity (if verbalized by the patient): Female Spiritual care concerns: No Mod Sed Physical Exam Physical Exam Pre Procedural Exam: Normal: Appearance, Lungs, Heart Rate, Heart Rhythm, Neuro Exam, Extremities and Skin Hours since solid foods: 12 Hours since liquid intake: 8 Mallampati Classification: class III Internal Medicine - PN: Obj Da Vital Signs Vital Signs: Vital Signs - 24 hr 07/03/24 16:03 07/03/24 17:27 07/03/24 18:22 Temperature 36.8 C Pulse Rate 90 80 79 Respiratory Rate 20 21 H 21 H Blood Pressure 175/98 H 154/91 H Pulse Oximetry 100 100 100 Oxygen Delivery Room Air 07/03/24 19:01 07/03/24 19:15 07/03/24 19:18 Temperature Pulse Rate 69 71 76 Respiratory Rate 18 18 Blood Pressure 161/75 H Pulse Oximetry 100 98 Oxygen Delivery 07/03/24 19:18 07/03/24 19:21 07/03/24 19:31 Temperature Pulse Rate 71 Respiratory Rate 16 Blood Pressure 141/91 H Pulse Oximetry 98 98 Oxygen Delivery Room Air Room Air 07/03/24 19:45 07/03/24 20:01 07/03/24 20:15 Temperature Pulse Rate 78 80 70 Respiratory Rate 13 22 H 19 Blood Pressure 162/87 H Pulse Oximetry 100 99 99 Oxygen Delivery 07/03/24 20:31 07/03/24 20:45 07/03/24 21:01 Temperature Pulse Rate 70 69 72 Respiratory Rate 16 18 18 Blood Pressure 141/91 H 163/95 H Pulse Oximetry 98 98 97 Oxygen Delivery 07/03/24 21:15 07/03/24 21:31 07/03/24 21:45 Temperature Pulse Rate 65 66 62 Respiratory Rate 14 19 17 Blood Pressure 150/81 H Pulse Oximetry 98 96 97 Oxygen Delivery 07/03/24 22:01 07/03/24 22:09 07/04/24 00:00 Temperature Pulse Rate 67 68 Respiratory Rate 16 Blood Pressure 127/70 Pulse Oximetry 96 Oxygen Delivery Room Air 07/04/24 00:00 07/04/24 02:00 07/04/24 03:27 Temperature 36.7 C Pulse Rate 77 59 L Respiratory Rate 18 Blood Pressure 156/94 H Pulse Oximetry 99 Oxygen Delivery Room Air 07/04/24 03:38 07/04/24 04:00 07/04/24 06:00 Temperature 36.4 C Pulse Rate 62 62 65 Respiratory Rate 16 Blood Pressure 138/70 Pulse Oximetry 97 Oxygen Delivery 07/04/24 08:00 07/04/24 08:44 Temperature 37.0 C Pulse Rate 72 72 Respiratory Rate 16 Blood Pressure 133/79 Pulse Oximetry 96 Oxygen Delivery Intake/Output Intake/Output: Intake & Output 07/01/24 07/02/24 07/03/24 07/04/24 23:59 23:59 23:59 23:59 Intake Total 50.4 Balance 50.4 Meds/Results Medications: Active Medications Generic Name Dose Route Start Last Admin Trade Name Freq PRN Reason Stop Dose Admin Aspirin 81 mg 07/04/24 09:00 07/04/24 08:45 Aspirin 81 Mg Enteric Tablet PO 81 mg QAM [facility] Administration Carvedilol 6.25 mg 07/03/24 21:00 07/04/24 08:44 Carvedilol 6.25 Mg Tablet PO 6.25 mg Q12HR [facility] Administration Heparin Sodium (Porcine) 4,000 units 07/03/24 19:59 Heparin Sodium 5,000 Units/Ml Vial IV PUSH PRN PRN aPTT less than 55 seconds Heparin Sodium (Porcine) 2,500 units 07/03/24 19:59 07/04/24 04:02 Heparin Sodium 5,000 Units/Ml Vial IV PUSH 2,500 units PRN PRN Administration aPTT 55 - 70 seconds Heparin Sodium/Dextrose 25,000 units in 250 mls @ 8 mls/hr 07/03/24 20:00 07/04/24 04:02 Heparin Sodium/D5w 100 Units/Ml IV CONT 800 units/hr .Q24H [facility]IMUNDO 8 mls/hr Titration Protocol 800 UNITS/HR Melatonin 5 mg 07/03/24 21:00 07/03/24 22:10 Melatonin 5 Mg Tablet PO 5 mg HS RAIMUNDO Administration Perflutren Lipid Microsphere 0 ml 07/04/24 10:16 Perflutren Lipid Microspheres 1.5 Ml Vial Diluted To 10 Ml Total Volume IV PUSH 07/07/24 10:16 ONCE PRN adequate visualization Protocol Radiology Results: ITS Impressions Chest X-Ray 07/03/24 16:43 IMPRESSION: No focal infiltrate or effusion. Labs 07/04/24 03:05 07/03/24 16:13 Labs: Laboratory Results - last 24 hr 07/03/24 07/03/24 07/03/24 16:13 18:56 20:22 WBC 7.0 5.9 RBC 4.89 4.79 Hgb 14.8 14.6 Hct 44.3 43.1 MCV 90.6 90.0 MCH 30.3 30.5 MCHC 33.4 33.9 RDW 13.2 13.2 Plt Count 164 151 MPV 11.1 H 10.8 H Immature Gran % (Auto) 0.3 0.3 Neut % (Auto) 75.0 H 54.9 Lymph % (Auto) 16.6 L 34.7 [place] % (Auto) 6.2 8.2 Eos % (Auto) 1.3 1.2 Baso % (Auto) 0.6 0.7 Lymph # (Auto) 1.16 2.03 [place] # (Auto) 0.4 0.5 Eos # (Auto) 0.1 0.1 Baso # (Auto) 0.0 0.0 Abs Immat Gran (auto) 0.02 0.02 Absolute Neuts (auto) 5.2 3.2 Absolute Nucleated RBC 0.000 0.000 Nucleated RBC % 0.0 0.0 PT 12.6 13.0 INR 0.9 1.0 APTT 28.1 28.7 Sodium 141 Potassium 3.8 Chloride 106 Carbon Dioxide 27 Anion Gap 8 BUN 12 Creatinine 0.88 Estim Creat Clear Calc 43 Estimated GFR > 60 Glucose 145 H Calcium 9.7 Total Bilirubin 0.5 AST 34 ALT 21 Alkaline Phosphatase 85 Troponin I 0.038 H* 0.077 H* D Total Protein 8.0 Albumin 4.8 Triglycerides Cholesterol LDL Cholesterol Direct HDL Direct Lipase 144 07/03/24 07/04/24 07/04/24 22:29 00:27 03:05 WBC 5.3 RBC 4.71 Hgb 14.1 Hct 42.2 MCV 89.6 MCH 29.9 MCHC 33.4 RDW 13.4 Plt Count 142 L MPV 10.7 H Immature Gran % (Auto) 0.4 Neut % (Auto) 49.5 Lymph % (Auto) 40.3 [place] % (Auto) 7.5 Eos % (Auto) 1.9 Baso % (Auto) 0.4 Lymph # (Auto) 2.15 [place] # (Auto) 0.4 Eos # (Auto) 0.1 Baso # (Auto) 0.0 Abs Immat Gran (auto) 0.02 Absolute Neuts (auto) 2.7 Absolute Nucleated RBC 0.000 Nucleated RBC % 0.0 PT INR APTT 59.0 H Sodium Potassium Chloride Carbon Dioxide Anion Gap BUN Creatinine Estim Creat Clear Calc Estimated GFR Glucose Calcium Total Bilirubin AST ALT Alkaline Phosphatase Troponin I 0.064 H* 0.055 H* Total Protein Albumin Triglycerides 137 Cholesterol 140 LDL Cholesterol Direct 44 HDL Direct 70 Lipase ASA Classification/Sedation ASA Classification/Sedation ASA Class: III Emergent: No Risks: Risks, benefits and alternatives explained and patient/family accepted plan for sedation. Patient re-evaluated immediately prior to sedation.
[2024-07-04 10:56] LABS: Partial Thromboplastin Time 85.8 Seconds (22.3-36.8)
--- NOTE | 2024-07-04 12:32 | P.PCNCC_ITS ---
Cardiac Cath Procedure Note Date of procedure:: 07/04/24 Performing physician:: CATHETERIZATION LABORATORY REPORT Procedure Date: 07/04/2024 It Infrastructure Specialist: Yimi Vela M.D., [facility]? Referring Physician: Yimi Vela M.D. ? Anesthesia: Versed and Fentanyl were ordered and given in my presence at 11:12, procedure ended at 12:20. Supervision of nurse monitored moderate sedation with Versed and Fentanyl was provided for 68 minutes. Total of Versed 2mg and Fentanyl 75mcg were administered by the Panel Edge Sealer RN Lexis Modi. Pre-op Diagnosis: NSTEMI Post-op Diagnosis: Significant obstructive disease in proximal LPDA s/p successful PCI with DONNY x 1. Left-dominant coronary artery system. Procedure(s): 1. Moderate sedation 2. Ultrasound-guided access of the right radial artery 3. Coronary angiography 4. PCI of the proximal LDPA with 2.75mm x 15mm Orsiro DONNY, post-dilated to 3.0mm. 5. IVUS of LDPA Access Site: Right radial artery Brief History and Clinical Indications: Patient is a 73 year old female who is referred for [facility] for NSTEMI. All risks, benefits and alternatives to left heart catheterization with or without percutaneous coronary intervention was discussed at length with the patient. Risk of complications including but not limited to bleeding, infection, arrhythmia, stroke, worsening kidney function, blood loss, groin hematoma, limb loss, emergency coronary artery bypass grafting, and even were discussed with the patient and all questions were answered. The patient understood and wished to proceed. Time out called, patient name, date of , medical record number, allergies, procedure performed, identify It Infrastructure Specialist, patient and staff member concurred with accurate data, procedure carried on. Findings: LEFT HEART CATHETERIZATION FINDINGS: 1. Left main: The left main coronary artery is widely patent without any significant obstructive disease. 2. Left anterior descending: The LAD has a moderate 50% stenosis in the mid portion at the bifurcation of a large diagonal branch. The remainder of the LAD has diffuse mild disease. The diagonal branch has diffuse mild disease. 3. Left circumflex: The left circumflex artery is the dominant vessel. The LPDA has an 80% stenosis in the proximal portion. The OM vessel has mild disease in the mid portion. 4. Right coronary artery: The RCA is a small caliber non-dominant vessel. There is diffuse moderate disease. Description of Procedure and PCI: Informed consent signed and placed in the chart. Patient transferred to laboratory manager room. Prepped and draped in usual sterile fashion. 2% lidocaine injected subcutaneously in right wrist area. 22-gauge venipuncture catheter used to access the right radial artery under ultrasound guidance. 6-FR slender sheath placed in right radial artery. Nitroglycerine and Verapamil were given intraarterial through the sheath. Versacore wire advanced under fluoroscopy 5F Ultra 4 diagnostic catheter engaged Left Main Coronary Artery. 5F Ultra 4 diagnostic catheter engaged Right Coronary Artery Multiple orthogonal angiogram obtained and reviewed Angiomax was used for anticoagulation. 6F EBU 3.0 guide catheter was used to intubate the left main. Given the tortuosity of the LCX, it was difficult to advance wire into the distal LCX. 0.014 Jeannette coronary wire was advanced into the OM, and a second Jeannette wire was then eventually passed into the distal LPDA. The wire from the OM was removed. The lesion was pre-dilated with a 2.5 mm x 15 mm balloon inflated to high MIKE. Attempted to advance the IVUS catheter, however, IVUS would not advance given tortuosity of the vessel. Attempted to advance a 3.0mm x 15mm Orsiro DONNY, however, would not advance given tortuosity of the vessel. A 6F Guideliner was advanced over a 2.5mm balloon into the LCX. A 2.75 mm x 15mm Orsiro DONNY was successfully deployed into LPDA. IVUS catheter was then successfully advanced distal to the stent. The stent was post-dilated with a 3.0 mm x 15 mm NC balloon inflated to high MIKE. Intracoronary NTG was administered Follow-up angiograms showed an excellent result Coronary wire and guide-catheter were removed No angiographic complications identified. Hemostasis was achieved by application of TR band. Disposition: Floor Plan: The patient will be monitored in the recovery area. DAPT for 1 year followed by ASA indefinitely. Continue aggressive medical therapy and risk factor modification. ? Yimi Vela M.D. Interventional Cardiology
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
[2024-07-04] MEDS: SODIUM CHLORIDE 0.9% IV 1,000 ML 125 ML IV CONT (16:30)
[2024-07-04] MEDS: ROSUVASTATIN 20 MG TABLET PO (18:21)
[2024-07-04 18:32] LABS: Glucose Point of Care 123 mg/dl (65-105)
[2024-07-04 20:10] LABS: Glucose Point of Care 132 mg/dl (65-105)
[2024-07-04] MEDS: SODIUM CHLORIDE 0.9% IV 500 ML 125 ML IV CONT (20:19)
[2024-07-04] MEDS: TICAGRELOR 90 MG TABLET PO (20:19)
[2024-07-04] MEDS: MELATONIN 5 MG TABLET PO (20:20)
[2024-07-04 21:48] LABS: Hemoglobin A1C 5.9 % (<5.7)
[2024-07-05] VITALS (11 sets, daily range): BP systolic 127–144; BP diastolic 65–77; PULSE 54–88; RESP 16–18; TEMP 36.7–36.8; O2SAT 98
[2024-07-05 04:58] LABS: Basophils Percent Auto 0.5 % (0.2-1.2); Eosinophils Absolute Auto 0.1 K/mm3 (0-0.3); Eosinophils Percent Auto 1.7 % (0-4.4); Hematocrit 39.7 % (37.0-47.0); Hemoglobin 13.3 g/dL (12.0-15.0); Immature Granulocyte Absolute 0.03 K/mm3 (0.00-0.031); Immature Granulocyte Percent A 0.5 % (0-0.5); Immature Platelet Fraction Pct 5.8 % (0.9-11.2); Lymphocytes Percent Auto 31.1 % (18.3-44.2); Mean Corpuscular HGB Conc 33.5 g/dl (32-36); Mean Corpuscular Hemoglobin 30.9 pg (26-34); Mean Corpuscular Volume 92.3 fl (80-100); Mean Platelet Volume 10.9 fl (7.4-10.4); Monocytes Absolute Auto 0.4 K/mm3 (0.1-0.6); Monocytes Percent Auto 7.6 % (2.6-8.5); Neutrophils Absolute Auto 3.4 K/mm3 (1.3-6.7); Neutrophils Percent Auto 58.6 % (45.5-73.1); Platelet Count Result 129 k/mm3 (150-375); Red Cell Distribution Width 13.4 % (11.5-14.5); White Blood Count 5.8 K/mm3 (4.5-10.0)
[2024-07-05 05:20] LABS: Alanine Aminotransferase 13 U/L (6-35); Albumin Level 3.8 g/dL (3.5-5.1); Alkaline Phosphatase 57 U/L (38-126); Anion Gap 7 mmol/L (4-12); Aspartate Amino Transferase 22 U/L (14-36); Bilirubin,Total 0.7 mg/dL (0.2-1.3); Blood Urea Nitrogen 12 mg/dL (7-17); Calcium 9.2 mg/dL (8.4-10.2); Carbon Dioxide 24 mmol/L (22-30); Chloride 110 mmol/L (98-107); Estimated CRCL calculation 39 ml/min; Estimated Glomerular Filt Rate 57; Glucose 107 mg/dL (65-110); Magnesium 2.2 mg/dL (1.6-2.3); Potassium 3.8 mmol/L (3.4-5.0); Sodium 141 mmol/L (137-145)
[2024-07-05] MEDS: carvediloL 6.25 MG TABLET PO (09:17)
[2024-07-05] MEDS: ASPIRIN 81 MG ENTERIC TABLET PO (09:18)
[2024-07-05] MEDS: TICAGRELOR 90 MG TABLET PO (09:18)
[2024-07-05] MEDS: ROSUVASTATIN 20 MG TABLET PO (09:18)
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
[2024-07-05 11:56] LABS: Glucose Point of Care 114 mg/dl (65-105)
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
== END 2024-07-05 14:18 | disposition home or self-care (01) | DRG 322 ==
LOC: ANHED 20:07 → ANHIMU 21:17
PROVIDERS: Internal Medicine; Physician Assistant; Admitting Provider General Practice; Emergency Provider Emergency Medicine; Visit Provider Internal Medicine
PROC: 027034Z Dilation of Coronary Artery, One Artery with Drug-eluting Intraluminal Device, Percutaneous Approach (ICD-10-PCS; CPT 93454; principal; 2024-07-04 10:30)
PROC: 027034Z Dilation of Coronary Artery, One Artery with Drug-eluting Intraluminal Device, Percutaneous Approach (ICD-10-PCS; CPT 92928; 2024-07-04 10:30)
PROC: 027034Z Dilation of Coronary Artery, One Artery with Drug-eluting Intraluminal Device, Percutaneous Approach (ICD-10-PCS; 2024-07-04 10:30)
DX: I21.4 Non-ST elevation (NSTEMI) myocardial infarction (principal); I25.10 Atherosclerotic heart disease of native coronary artery without angina pectoris; I10 Essential (primary) hypertension; F03.A0 Unspecified dementia, mild, without behavioral disturbance, psychotic disturbance, mood disturbance, and anxiety; E11.9 Type 2 diabetes mellitus without complications
CPT/HCPCS: 36415; 71046; 80053; 80061; 82948; 83036; 83690; 83735; 84484; 85025; 85055; 85610; 85730; 92978; 93005; 93306; 93454; 96374; 99285; A9270; C1725; C1753; C1769; C1874; C1887; C1894; C9600; G0378; J0583; J1644; J2003; J2250; J2305; J3010; J7030; J7040

== ENCOUNTER 2024-07-15 13:42 | Emergency (ER) | payer MEDICARE, OTHER, SELFPAY ==
[2024-07-15] VITALS (11 sets, daily range): BP systolic 147–190; BP diastolic 71–89; PULSE 55–67; RESP 14–20; TEMP 36.9; O2SAT 98–100
--- NOTE | ~2024-07-15 | XR_ITS ---
EXAMINATION: XR chest 2V 07/15/2024 14:19 INDICATION: Chest pain PROCEDURE: 2 view chest COMPARISON: Comparison to multiple prior studies sequentially, with oldest reviewed study dated 12/06. FINDINGS: The lungs are clear. The cardiomediastinal silhouette is within normal limits. There are no pleural effusions. There is no pneumothorax suspected. There is atherosclerosis of the aorta. IMPRESSION: 1: NO ACUTE CARDIOPULMONARY DISEASE. Reviewed, dictated and finalized at location B.
--- NOTE | 2024-07-15 13:45 | ECG_ITS ---
Test Date: 2024-07-15 13:51:29 Measurements Intervals [place] Rate: 64 P: 67 PA: 171 QRS: -19 QRSD: 84 T: 40 QT: 398 QTc: 413 Interpretive Statements SINUS RHYTHM CANNOT R/O SEPTAL INFARCT, AGE INDETERMINATE ABNORMAL ECG Compared to ECG 07/03/2024 22:32:55 No significant changes Electronically Signed On 07-15-2024 13:55:35 CDT by Suresh Estes D.O.
[2024-07-15 14:03] LABS: Basophils Percent Auto 0.8 % (0.2-1.2); Eosinophils Absolute Auto 0.1 K/mm3 (0-0.3); Eosinophils Percent Auto 2.1 % (0-4.4); Hematocrit 41.9 % (37.0-47.0); Hemoglobin 14.2 g/dL (12.0-15.0); Immature Granulocyte Absolute 0.03 K/mm3 (0.00-0.031); Immature Granulocyte Percent A 0.6 % (0-0.5); Lymphocytes Absolute Auto 1.54 K/mm3 (0.9-3.2); Lymphocytes Percent Auto 31.7 % (18.3-44.2); Mean Corpuscular HGB Conc 33.9 g/dl (32-36); Mean Corpuscular Hemoglobin 30.4 pg (26-34); Mean Corpuscular Volume 89.7 fl (80-100); Mean Platelet Volume 10.4 fl (7.4-10.4); Monocytes Absolute Auto 0.4 K/mm3 (0.1-0.6); Monocytes Percent Auto 7.2 % (2.6-8.5); Neutrophils Absolute Auto 2.8 K/mm3 (1.3-6.7); Neutrophils Percent Auto 57.6 % (45.5-73.1); Platelet Count Result 173 k/mm3 (150-375); Red Blood Count 4.67 M/mm3 (4.2-5.4); Red Cell Distribution Width 13.6 % (11.5-14.5); White Blood Count 4.9 K/mm3 (4.5-10.0)
[2024-07-15 14:14] LABS: Prothrombin Time 12.8 Seconds (11.1-14.7)
[2024-07-15 14:15] LABS: Partial Thromboplastin Time 29.7 Seconds (22.3-36.8)
[2024-07-15 14:16] LABS: Alanine Aminotransferase 30 U/L (6-35); Albumin Level 4.7 g/dL (3.5-5.1); Alkaline Phosphatase 81 U/L (38-126); Anion Gap 11 mmol/L (4-12); Aspartate Amino Transferase 34 U/L (14-36); Bilirubin,Total 0.6 mg/dL (0.2-1.3); Blood Urea Nitrogen 12 mg/dL (7-17); Calcium 9.7 mg/dL (8.4-10.2); Carbon Dioxide 24 mmol/L (22-30); Chloride 105 mmol/L (98-107); Estimated CRCL calculation 38 ml/min; Estimated Glomerular Filt Rate 55; Glucose 162 mg/dL (65-110); Lipase 153 U/L (23-300); Potassium 3.6 mmol/L (3.4-5.0); Sodium 140 mmol/L (137-145); Total Protein 7.6 g/dL (6.3-8.2)
[2024-07-15 14:28] LABS: Troponin I < 0.012 ng/mL (0.000-0.034)
[2024-07-15] MEDS: ASPIRIN 81 MG CHEWABLE TABLET 324 MG PO (14:38)
--- OUTSIDE RECORDS SUMMARY | 2024-07-15 14:51 | XMS_ITS | Encounter Summary ---
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
--- OUTSIDE RECORDS SUMMARY | 2024-07-15 14:51 | XMS_ITS | Encounter Summary ---
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 Her blood pressure was 193/113 with HR 220 but down to 146/89 with HR 67 right before our conversation. She does have some mild shortness of breath. Disposition Go to ED Now - agrees and will have another adult drive her. Call back if you have additional questions or concerns. Call back if symptoms change, persist or worsen. Reason for Disposition Systolic BP >= 160 OR Diastolic >= 100, and any cardiac (e.g., breathing difficulty, chest pain) or neurologic symptoms (e.g., new-onset blurred or double vision) No Initial Assessment on file. No Additional Information on file. Protocols Used Blood Pressure - [id number] documented in this encounter Plan of Treatment Not on file documented as of this encounter Visit Diagnoses Not on filedocumented in this encounter Care Teams Psychology Technician Relationship Specialty Start Date End Date Joan Sepulveda MD PCP - General Family Practice 07/20/22 documented as of this encounter
--- OUTSIDE RECORDS SUMMARY | 2024-07-15 14:51 | XMS_ITS | Clinical Summary ---
Author Organization [facility] [place] 155 [facility] lto Address [address] [place] [address] Care Team Providers Care Director Graphics Name Role Phone Joan Sepulveda MD Primary [...] cessation. Discussed different types of medications & fouv-suj-vockzll aides to help with cessation. Moderate episode [...] & Plan (07/12/2020 4:28 PM CDT): 04/25/18: ce=155 hdl=33 ax=138 vmz=784 Tc/hdl=6.6 Pravastatin 40mg daily. We will check [...] medication compliance. Discussed use of a pill materials planner/production planner and having family remind her regularly [...] Plan (07/12/2020 4:11 PM CDT): Referral to [facility] for colonoscopy. Aware that their office will call her to set up. number given if she does not receive call. Colonoscopy refused 04/28/2018 07/13/19 21 Depression 05/18/2009 07/12/2020 Chronic pain 06/15/2008 07/12/2020 Hyperlipidemia 06/15/2008 07/12/2020 Tobacco abuse 06/15/2008 07/12/2020 Encounters Date Type Department Care Team Description 07/15/2024 Nurse Triage [facility] Patient Access [address] [place] [address] oJan Sepulveda MD 07/07/2024 Orders Only [facility] Cardiology [address] [place] [address] Yimi Vela MD from Last 3 Months Immunizations Immunization Administration Dates Next Due Influenza, [...] Comments Hypercholesterolemia 1984 High choles terol; Comments: [facility] 03/01/2015 - Hx Other Medical 1992 degenerative di sc disease; Comments: [facility] 03/01/2015 - Hx Other Medical 2002 E-coli in [facility]; Comments: [facility] 03/01/2015 - Diabetes mellitus (HCC) Diabetes mellitus; Comments: 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 Inhaled Oxygen Concentration - - Weight 62.5 kg (137 lb 12.8 oz) 12/12/2023 1:48 PM 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 Height 160 cm (5' 3) 12/12/2023 1:48 PM 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 Body Mass Index 24.41 12/12/2023 1:48 PM 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 Plan of Treatment Health Maintenance Due Date Last Done Comments Breast Cancer Screening-Mammogram 1952 Hepatitis C Screening 1952 Osteoporosis Screening-Bone Density Scan 1952 Dilated Eye Exam 1952 Hepatitis B Screening 1970 Zoster Vaccine (1 of 2) 2002 Colon Cancer Screening-FIT 05/03/2019 05/02/2018 DTaP/Tdap/Td Vaccine (2 - Td or Tdap) 04/01/2023 04/01/2013 Albumin Creatinine Ratio, Urine 08/24/2023 Lipid Panel 08/24/2023 08/23/2022, 08/2021, 04/25/2018, Additional history exists eGFR 08/24/2023 [...] Procedure Name Priority Date/Time Associated Diagnosis Comments CARDIOLOGY DOCUMENT SCAN Routine 07/05/2024 4:16 PM CDT CARDIOLOGY DOCUMENT SCAN Routine 07/04/2024 3:48 PM CDT CARDIOLOGY DOCUMENT SCAN Routine 07/04/2024 3:45 PM CDT POCT HEMOGLOBIN A1C Routine 06/27/2023 3 :37 [...] Recently Relevant to Health Maintenance Results * Cardiology Document Scan (07/05/2024 4:16 PM CDT) Anatomical Region Laterality Modality Other us Archie Reyes MD CV CARDIAC SERVICES PROC EDURES Final Result * Cardiology Document Scan (07/04/2024 3:48 PM CDT) Anatomical Region Laterality Modality Other us Ripa Nasrin Vela MD CV CARDIAC SERVICES PRO CEDURES Final Result * Cardiology Document Scan (07/04/2024 3:45 PM CDT) Anatomical Region Laterality Modality Other us Ripa Kiritkumar Vela MD CV CARDIAC SERVICES PRO CEDURES Final Result * POCT hemoglobin A1c (06/27/2023 3:37 PM CDT) Hemoglobin A1C, POC 5.8 % Blood 06/27/2023 3:37 PM CDT Joan Sepulveda MD POINT OF CARE TEST ORD ERABLES Final Result * Albumin Creatinine Ratio, Urine (08/23/2022 2:03 PM CDT) Pathologist [facility] Creatinine, ur 190 20 - 275 mg/dL [...] ORDERABLES F inal Result [facility] [address] [place] [address] * (ABNORMAL) Lipid panel (08/23/2022 2:03 PM CDT) Pathologist [facility] Cholesterol 248(H) <200 mg/dL [facility] HDL 46(L) > OR = 50 mg/dL [facility] Triglycerides 169(H) <150 mg/dL [facility] LDL 170(H) mg/dL (calc) [facility] Comment: Reference range: <100 Desirable range <100 mg/dL for primary prevention; <70 mg/dL for patients with CHD or diabetic patients with > or = 2 CHD risk factors. LDL-C is now calculated using the Iraida calculation, which is a validated novel method providing better accuracy than the Friedewald equation in the estimation of LDL-C. Baldemar ROSENBERG et al. BRENDON. 2013;310(19): 1355-8010 (http://education.Figure 1/faq/XGR611) Chol/HDL ratio 5.4(H) <5.0 (calc) [facility] Non-HDL, (LDL+VLDL) 202(H) <130 mg/dL (calc) [facility] Comment: For patients with diabetes plus 1 major ASCVD risk factor, treating to a non-HDL-C goal of <100 mg/dL (LDL-C of <70 mg/dL) is considered a therapeutic option. Blood 08/23/2022 2:03 PM CDT 08/23/2022 2:04 PM CDT Narrative [facility] - 08/25/2022 1:49 AM CDT FASTING:YES FASTING: YES Joan Sepulveda MD LAB BLOOD ORDERABLES F inal Result [facility] [address] [place] [address] * (ABNORMAL) Comprehensive metabolic panel (08/23/2022 2:03 PM CDT) Pathologist [facility] Glucose 102(H) 65 - 99 mg/dL [facility] Comment: Fasting reference interval For someone without known diabetes, a glucose value between 100 and 125 mg/dL is consistent with prediabetes and should be confirmed with a follow-up test. BUN 11 7 - 25 mg/dL [facility] Creatinine 1.24(H) 0.50 - 1.05 mg/dL [facility] eGFR 47(L) > OR = 60 mL/min/1.7 3m2 [facility] Comment: The eGFR is based on the CKD-EPI 2020 equation. To calculate the new eGFR from a previous Creatinine or Cystatin C result, go to https://www.kidney.org/professionals/ kdoqi/gfr%5Fcalculator BUN/creat ratio 9 6 - 22 (calc) [facility] Sodium 139 135 - 146 mmol/L [facility] Potassium, pl 3.7 3.5 - 5.3 mmol/L [facility] Chloride 99 98 - 110 mmol/L [facility] CO2 30 20 - 32 mmol/L [facility] Calcium 10.0 8.6 - 10.4 mg/dL [facility] Protein, sr 7.4 6.1 - 8.1 g/dL [facility] Albumin 4.9 3.6 - 5.1 g/dL [facility] GLOBULIN 2.5 1.9 - 3.7 g/dL (calc) [facility] Alb/glob ratio 2.0 1.0 - 2.5 (calc) [facility] Bilirubin, total 0.9 0.2 - 1.2 mg/dL [facility] Alk phos 71 37 - 153 U/L [facility] AST 14 10 - 35 U/L [facility] ALT (SGPT) 11 6 - 29 U/L [facility] Blood 08/23/2022 2:03 PM CDT 08/23/2022 2:04 PM CDT Narrative [facility] - 08/25/2022 1:49 AM CDT FASTING:YES FASTING: YES us Joan Sepulveda MD LAB BLOOD ORDERABLES F inal Result [facility] [address] [place] [address] * Occult Blood, Fecal (FIT) (05/02/2018) Stool Historical Provider LAB BODY FLUIDS AND STOOL S ORDERABLES Final Result EXTERNAL LAB from Last 3 Months or Most Recently Relevant to Health [place] [address] [place] [facility] [place] MEDICARE [facility] MEDICARE MEDICARE [facility] Advance Directives For more information, please contact: [phone] * Full Code (Latest Code Status on File) Date Activated Date Inactivated Comments 10/26/2023 9:52 AM 10/27/2023 5:11 AM Care Teams Director Graphics Relationship Specialty Start Date End Date Joan Sepulveda MD PCP - General Family Practice 07/20/22
--- OUTSIDE RECORDS SUMMARY | 2024-07-15 14:51 | XMS_ITS | Referral Summary ---
Author Organization [facility] [place] [facility] [place] [address] [facility] lto Address [address] [place] [address] Care Team Providers Care Hose Sprayer Name Role Phone Joan Sepulveda MD Primary Care Provider Encounters Date Type Department Care Team Description 07/15/2024 Nurse Triage [facility] Patient Access [address] [place] [address] Joan Sepulveda MD 07/07/2024 Orders Only [facility] Cardiology [address] [place] [address] Yimi Vela MD from Last 3 Months Allergies No known active allergies Medications omega-3 [...] cessation. Discussed different types of medications & dyxg-ioc-vbmltzy aides to help with cessation. Moderate episode [...] & Plan (07/12/2020 4:28 PM CDT): 04/25/18: xg=876 hdl=33 cc=871 sau=834 Tc/hdl=6.6 Pravastatin 40mg daily. We will check [...] medication compliance. Discussed use of a pill assortment planner and having family remind her regularly [...] Date Resolved Date BMI 27.0-27.9,adult 07/12/2020 07/21/19 23 Assessment & Plan (07/12/2020 4:01 PM CDT): [...] (07/12/2020 4:11 PM CDT): Referral to [facility] for colonoscopy. 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 Gender Identity Not on file Sexual Orientation Not on file Last Filed Vital Signs Vital Sign Reading Time Taken Comments Blood Pressure 203/84 12/12/2023 1:48 PM FINANCIAL WELLNESS COACH Pulse 55 12/12/2023 1:48 PM FINANCIAL WELLNESS COACH Temperature 36.6 C (97.9 F) 10/26/2023 8:50 AM CDT Respiratory Rate 18 12/12/2023 1:48 PM FINANCIAL WELLNESS COACH Oxygen Saturation 98% 12/12/2023 1:48 PM FINANCIAL WELLNESS COACH Inhaled Oxygen Concentration - - Weight 62.5 kg (137 lb 12.8 oz) 12/12/2023 1:48 PM FINANCIAL WELLNESS COACH Height 160 cm (5' 3) 12/12/2023 1:48 PM FINANCIAL WELLNESS COACH Body Mass Index 24.41 12/12/2023 1:48 PM FINANCIAL WELLNESS COACH Plan of Treatment Not on file Procedures [...] CDT) Anatomical Region Laterality Modality Other us Yimi Vela MD CV CARDIAC SERVICES PRO CEDURES Final Result * Cardiology Document Scan (07/04/2024 3:45 PM CDT) Anatomical Region Laterality Modality Other Yimi Vela MD CV CARDIAC SERVICES PRO CEDURES [...] ORDERABLES F inal Result [facility] [address] [place] [address] * (ABNORMAL) Lipid panel (08/23/2022 2:03 PM CDT) Cholesterol 248(H) <200 mg/dL [facility] HDL 46(L) > OR = [...] LDL-C. Baldemar ROSENBERG et al. BRENDON. 2013;310(19): 0287-4339 (http://education.Second Funnel/faq/PPK725) Chol/HDL ratio 5.4(H) <5.0 (calc) [facility] Non-HDL, (LDL+VLDL) 202(H) <130 mg/dL (calc) [facility] Comment: For patients with diabetes plus 1 major ASCVD risk factor, treating to a non-HDL-C goal of <100 mg/dL (LDL-C of <70 mg/dL) is considered a therapeutic option. Blood 08/23/2022 2:03 PM CDT 08/23/2022 2:04 PM CDT Narrative [facility] - 08/25/2022 1:49 AM CDT FASTING:YES FASTING: YES Joan Sepulveda MD LAB BLOOD ORDERABLES F inal Result [facility] [address] [place] [address] * (ABNORMAL) Comprehensive metabolic panel (08/23/2022 2:03 PM CDT) Glucose 102(H) 65 - 99 mg/dL [facility] Comment: Fasting reference interval For someone without known diabetes, a glucose value between 100 and 125 mg/dL is consistent with prediabetes and should be confirmed with a follow-up test. BUN 11 7 - 25 mg/dL [facility] Creatinine 1.24(H) 0.50 - 1.05 mg/dL [facility] eGFR 47(L) > OR = 60 mL/min/1.7 3m2 [facility] Comment: The eGFR is based on the CKD-EPI 2020 equation. To calculate the new eGFR from a previous Creatinine or Cystatin C result, go to https://www.kidney.org/professionals/ kdoqi/gfr%5Fcalculator BUN/creat ratio 9 6 - 22 (calc) [facility] Sodium 139 135 - 146 mmol/L [facility] Potassium, pl 3.7 3.5 - 5.3 mmol/L [facility] Chloride 99 98 - 110 mmol/L [...] Alb/glob ratio 2.0 1.0 - 2.5 (calc) [facility] Bilirubin, total 0.9 0.2 - 1.2 mg/dL [facility] Alk phos 71 37 - 153 U/L [facility] AST 14 10 - 35 U/L [facility] ALT (SGPT) 11 6 - 29 U/L [facility] Blood 08/23/2022 2:03 PM CDT 08/23/2022 2:04 PM CDT Narrative [facility] - 08/25/2022 1:49 AM CDT FASTING:YES FASTING: YES Joan Sepulveda MD LAB BLOOD ORDERABLES F inal Result [facility] [address] [place] [address] * Occult Blood, Fecal (FIT) (05/02/2018) Stool Historical Provider LAB BODY FLUIDS AND STOOL S ORDERABLES Final Result EXTERNAL LAB from Last 3 Months or Most Recently Relevant to Health Maintenance Insurance [facility] MEDIC[facility] MEDICARE MEDICARE [facility] Advance Directives For more information, please contact: [phone] * Full Code (Latest Code Status on File) Date Activated Date Inactivated Comments 10/26/2023 9:52 AM 10/27/2023 5:11 AM Care Teams Hose Sprayer Relationship Specialty Start Date End Date Joan Sepulveda MD PCP - General Family Practice 07/20/22
--- OUTSIDE RECORDS SUMMARY | 2024-07-15 14:51 | XMS_ITS | Clinical Summary ---
Author Organization [facility] Address [address] [place] [address] Care Team Providers Care Directory Clerk Name Role Phone Elise Hughes MD Primary Care Provider [phone] Source Comments [facility],non-owned Affiliates and Associated Physician Practices is amultiple site organization consisting of ambulatory clinics and hospital sitesin [place], [place], [place] and [place]. This disclosure is being madepursuant to the Care Everywhere program and may not contain all information available regarding this patient. 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 Increased risk for diabetes: 5.7 - 6.4 Diabetes: >6.4 Glycemic control for adults with diabetes: <7.0 Whole blood specimen (specimen) BLOOD SPECIMEN WITH EDTA / Unknown 05/28/2014 2:54 PM CDT 05/28/2014 5:41 PM CDT Narrative Resulting Agency Comment [facility] [address] [phone] Elise Hughes MD LAB - CHEMISTRY ORDERABLES Casandra l Result Performing Organization Address [facility] Co de Phone Number [facility] INSURANCE BILL [address] [place] [address] * (ABNORMAL) COMPREHENSIVE METABOLIC PANEL (05/28/2014 2:54 [...] 5:41 PM CDT Narrative Resulting Agency Comment [address] [phone] us Elise Hughes MD LAB - CHEMISTRY ORDERABLES Casandra l Result [facility] INSURANCE BILL [address] [place] [address] * HEPATITIS C ANTIBODY (07/30/2012 12:35 PM [...] a more specific supplemental or PCR testing. [facility] HCV Ab w/Reflex to Verification test #[id number]. Blood specimen (specimen) BLOOD SPECIMEN / Unknown 07/30/2012 12:35 PM CDT 07/30/2012 5:49 PM CDT Narrative Resulting Agency Comment [facility] [address] [facility] [phone] us Elise Hughes MD LAB - CHEMISTRY ORDERABLES Casandra l Result [facility] INSURANCE BILL [address] [place] [address] * MAMMOGRAPHY ORDER (07/24/2012) Anatomical Region Laterality Modality Other us Elise Hughes MD MAMMO ORDERABLES Final Result from Last 3 Months or Most Recently Relevant to Health Maintenance Insurance MEDICARE [facility] Care Teams Directory Clerk Relationship Specialty Start Date End Date Elise Hughes MD PCP - General 10/26/08
--- NOTE | 2024-07-15 14:53 | ED.CHESTPAIN ---
HPI - Chest Pain General Chief Complaint: Chest Pain Stated Complaint: chest pain Time Seen by Provider: 07/15/24 14:42 History of Present Illness HPI narrative: Pt had episode of sharp CP and SOB and felt a little dizzy while sitting paying bills. Pt thinks the pain lasted 5-10 minutes and resolved when she got here via EMS. Pt has a history of CABG. Pt feels fine now. Pt does not have a history of these episodes since cabg. Related Data Home Medications ?Medication ?Instructions ?Recorded ?Confirmed ?Last Taken ?Type bupropion HCl 150 mg 24 hr tablet, 150 mg PO DAILY 07/04/24 07/04/24 Unknown History extended release donepezil 10 mg tablet 10 mg PO DAILY 07/04/24 07/04/24 Unknown History rosuvastatin 20 mg tablet 20 mg PO DAILY 07/04/24 07/04/24 Unknown History trazodone 50 mg tablet 50 mg PO HS 07/04/24 07/04/24 Unknown History Allergies Allergy/AdvReac Type Severity Reaction Status Date / Time No Known Allergies Allergy Unknown Verified 01/07/24 22:43 Review of Systems Review of Systems: All systems reviewed & are unremarkable except as noted in HPI and below PMFSH Past Medical History Medical History Tachycardia Hypertension Social History Social History Smoking packs per day: 1 Smoking cigarettes per day: 20.0 Smoking status: Former smoker Tobacco type: cigarettes Smoking end date: 02/06/12 Alcohol intake: never Substance use: never Do You Feel Safe in your Home?: No Lack of Transportation: No Lack of Food: Never True Current Housing: I Have Housing Concerned About Future Housing: No Difficulty Paying Gas/Electric Bills: No Difficulty Paying for Meds: No Currently Unemployed: No Education: High School Diploma/GED Difficulty w/ Childcare or Family Care: No Gender identity (if verbalized by the patient): Female Spiritual care concerns: No Exam Const: General: healthy appearing and no acute distress Nutritional Appearance: well nourished Orientation/consciousness: patient oriented x3 Limitations: no limitations HENMT: Head: normal to inspection Chest: Chest palpation & inspection: normal inspection of the chest Resp: Effort & Inspection: normal respiratory effort Auscultation: clear to auscultation bilaterally Cardio: Rate: regular rate Rhythm: regular rhythm GI: GI Palp: Yes Soft to palpation Skin: Rashes: no rashes Neuro: General: patient oriented x3, moves all extremities, no focal motor deficits and CN's II-XI intact bilaterally Speech: normal speech Extrem: General: normal to inspection and no clubbing, cyanosis or edema Psych: Mental Status: mental status grossly normal Affect: normal affect Attitude: cooperative Course Vital Signs Vital signs: Vital Signs Temperature 98.5 F 07/15/24 13:46 Pulse Rate 66 07/15/24 13:46 Respiratory Rate 17 07/15/24 13:46 Blood Pressure 190/71 H 07/15/24 13:46 Pulse Oximetry 100 07/15/24 13:46 Oxygen Delivery Room Air 07/15/24 13:46 Temperature 98.5 F 07/15/24 13:46 Pulse Rate 62 07/15/24 16:00 Respiratory Rate 18 07/15/24 16:00 Blood Pressure 147/80 H 07/15/24 15:31 Pulse Oximetry 99 07/15/24 16:00 Oxygen Delivery Room Air 07/15/24 13:46 MDM - Chest Pain MDM Narrative Medical decision making narrative: cp seems somewhat atypical but will need rule out given history so will get ekg and labs and cxr trop x 2. ekg normal labs and first trop neg. second trop and ekg also neg. home on flexeril. Lab Data 07/15/24 13:56 07/15/24 13:56 Labs: Lab Results 07/15/24 07/15/24 Range/Units 13:56 16:46 WBC 4.9 (4.5-10.0) K/mm3 RBC 4.67 (4.2-5.4) M/mm3 Hgb 14.2 (12.0-15.0) g/dL Hct 41.9 (37.0-47.0) % MCV 89.7 (80-100) fl MCH 30.4 (26-34) pg MCHC 33.9 (32-36) g/dl RDW 13.6 (11.5-14.5) % Plt Count 173 (150-375) k/mm3 MPV 10.4 (7.4-10.4) fl Immature Gran % (Auto) 0.6 H (0-0.5) % Neut % (Auto) 57.6 (45.5-73.1) % Lymph % (Auto) 31.7 (18.3-44.2) % [place] % (Auto) 7.2 (2.6-8.5) % Eos % (Auto) 2.1 (0-4.4) % Baso % (Auto) 0.8 (0.2-1.2) % Lymph # (Auto) 1.54 (0.9-3.2) K/mm3 [place] # (Auto) 0.4 (0.1-0.6) K/mm3 Eos # (Auto) 0.1 (0-0.3) K/mm3 Baso # (Auto) 0.0 (0.0-0.1) K/mm3 Abs Immat Gran (auto) 0.03 (0.00-0.031) K/mm3 Absolute Neuts (auto) 2.8 (1.3-6.7) K/mm3 Absolute Nucleated RBC 0.000 (0.0-0.012) K/mm3 Nucleated RBC % 0.0 (0.0-0.2) % PT 12.8 (11.1-14.7) Seconds INR 1.0 APTT 29.7 (22.3-36.8) Seconds Sodium 140 (137-145) mmol/L Potassium 3.6 (3.4-5.0) mmol/L Chloride 105 (98-107) mmol/L Carbon Dioxide 24 (22-30) mmol/L Anion Gap 11 (4-12) mmol/L BUN 12 (7-17) mg/dL Creatinine 0.99 (0.7-1.0) mg/dL Estim Creat Clear Calc 38 ml/min Estimated GFR 55 L (59 - ) Glucose 162 H (65-110) mg/dL Calcium 9.7 (8.4-10.2) mg/dL Total Bilirubin 0.6 (0.2-1.3) mg/dL AST 34 (14-36) U/L ALT 30 (6-35) U/L Alkaline Phosphatase 81 (38-126) U/L Troponin I < 0.012 < 0.012 (0.000-0.034) ng/mL Total Protein 7.6 (6.3-8.2) g/dL Albumin 4.7 (3.5-5.1) g/dL Lipase 153 (23-300) U/L Discharge Plan Discharge Clinical Impression: Atypical chest pain Patient Disposition: Home Condition: Stable Instructions: Antibiotic Form, Chest Wall Pain (ED) Patient Language: Thai Prescriptions: New cyclobenzaprine 10 mg tablet 10 mg PO TID Qty: 14 0RF No Action bupropion HCl 150 mg tablet extended release 24 hr 150 mg PO DAILY donepezil 10 mg tablet 10 mg PO DAILY rosuvastatin 20 mg tablet 20 mg PO DAILY trazodone 50 mg tablet 50 mg PO HS ticagrelor [Brilinta] 90 mg Tablet 90 mg PO Q12HR Qty: 180 3RF aspirin 81 mg Tablet,Delayed Release (Dr/Ec) 81 mg PO QAM Qty: 30 0RF carvedilol [Coreg] 6.25 mg Tablet 6.25 mg PO Q12HR Qty: 60 0RF Follow-up/Referrals: UNKNOWN,DOCTOR [Primary Care Provider] - Quality HEART score for chest pain patients History: slightly suspicious ECG: normal Age: > or = to 65 years Risk factors: 1 or 2 risk factors Troponin: < or = to 1x normal limit Heart score: 3
--- OUTSIDE RECORDS SUMMARY | 2024-07-15 16:21 | XMS_ITS | Encounter Summary ---
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
--- OUTSIDE RECORDS SUMMARY | 2024-07-15 16:21 | XMS_ITS | Clinical Summary ---
Author Organization [facility] Address [address] [place] [address] Care Team Providers Care Library Technology Instructor Name Role Phone Elise Hughes MD Primary Care Provider [phone] Source Comments [facility],non-owned Affiliates and Associated Physician Practices is amultiple site organization consisting of ambulatory clinics and hospital sitesin [place], [place], [place] and [place]. This disclosure is being madepursuant to the Care Everywhere program and may not contain all information available regarding this patient. 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 Increased risk for diabetes: 5.7 - 6.4 Diabetes: >6.4 Glycemic control for adults with diabetes: <7.0 Whole blood specimen (specimen) BLOOD SPECIMEN WITH EDTA / Unknown 05/28/2014 2:54 PM CDT 05/28/2014 5:41 PM CDT Narrative Resulting Agency Comment [facility] [address] [phone] Elise Hughes MD LAB - CHEMISTRY ORDERABLES Casandra l Result Performing Organization Address [facility] Co de Phone Number [facility] INSURANCE BILL [address] [place] [address] * (ABNORMAL) COMPREHENSIVE METABOLIC PANEL (05/28/2014 2:54 [...] 5:41 PM CDT Narrative Resulting Agency Comment [address] [phone] us Elise Hughes MD LAB - CHEMISTRY ORDERABLES Casandra l Result [facility] INSURANCE BILL [address] [place] [address] * HEPATITIS C ANTIBODY (07/30/2012 12:35 PM [...] a more specific supplemental or PCR testing. [facility] offers HCV Ab w/Reflex to Verification test #[id number]. Blood specimen (specimen) BLOOD SPECIMEN / Unknown 07/30/2012 12:35 PM CDT 07/30/2012 5:49 PM CDT Narrative Resulting Agency Comment [facility] [address] [phone] us Elise Hughes MD LAB - CHEMISTRY ORDERABLES Casandra l Result [facility] INSURANCE BILL [address] [place] [address] * MAMMOGRAPHY ORDER (07/24/2012) Anatomical Region Laterality Modality Other us Elise Hughes MD MAMMO ORDERABLES Final Result from Last 3 Months or Most Recently Relevant to Health Maintenance Insurance MEDICARE [facility] Care Teams Library Technology Instructor Relationship Specialty Start Date End Date Elise Hughes MD PCP - General 10/26/08
--- OUTSIDE RECORDS SUMMARY | 2024-07-15 16:21 | XMS_ITS | Referral Summary ---
Author Organization [facility] [address] lto Address [address] [place] [address] Care Team Providers Care Back Tacker Name Role Phone Joan Sepulveda MD Primary Care Provider Encounters Date Type Department Care Team Description 07/15/2024 Nurse Triage [facility] Patient Access [address] [place] [address] Joan Sepulveda MD 07/07/2024 Orders Only [facility] Cardiology [address] [place] [address] Yimi Vela MD from Last [...] cessation. Discussed different types of medications & gdlv-fbm-uthupax aides to help with cessation. Moderate episode [...] & Plan (07/12/2020 4:28 PM CDT): 04/25/18: ai=421 hdl=33 zf=027 pbg=798 Tc/hdl=6.6 Pravastatin 40mg daily. We will check [...] medication compliance. Discussed use of a pill merchandise planner and having family remind her regularly [...] Plan (07/12/2020 4:11 PM CDT): Referral to [facility] for colonoscopy. 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 Gender Identity Not on file Sexual Orientation Not on file Last Filed Vital Signs Vital Sign Reading Time Taken Comments Blood Pressure 203/84 12/12/2023 1:48 PM MIME ARTIST Pulse 55 12/12/2023 1:48 PM MIME ARTIST Temperature 36.6 C (97.9 F) 10/26/2023 8:50 AM CDT Respiratory Rate 18 12/12/2023 1:48 PM MIME ARTIST Oxygen Saturation 98% 12/12/2023 1:48 PM MIME ARTIST Inhaled Oxygen Concentration - - Weight 62.5 kg (137 lb 12.8 oz) 12/12/2023 1:48 PM MIME ARTIST Height 160 cm (5' 3) 12/12/2023 1:48 PM MIME ARTIST Body Mass Index 24.41 12/12/2023 1:48 PM MIME ARTIST Plan of Treatment Not on file Procedures [...] ORDERABLES F inal Result [facility] [address] [place] [address] * (ABNORMAL) Lipid panel (08/23/2022 2:03 PM [...] LDL-C. Baldemar ROSENBERG et al. BRENDON. 2013;310(19): 3479-6864 (http://education.HowGood/faq/GOH627) Chol/HDL ratio 5.4(H) <5.0 (calc) [facility] Non-HDL, (LDL+VLDL) 202(H) <130 mg/dL (calc) [facility] Comment: For patients with diabetes plus 1 major ASCVD risk factor, treating to a non-HDL-C goal of <100 mg/dL (LDL-C of <70 mg/dL) is considered a therapeutic option. Blood 08/23/2022 2:03 PM CDT 08/23/2022 2:04 PM CDT Narrative [facility] - 08/25/2022 1:49 AM CDT FASTING:YES FASTING: YES Joan Sepulveda MD LAB BLOOD ORDERABLES F inal Result [facility] [address] [place] [address] * (ABNORMAL) Comprehensive metabolic panel (08/23/2022 2:03 PM CDT) Glucose 102(H) 65 - 99 mg/dL [facility] Comment: Fasting reference interval For someone without known diabetes, a glucose value between 100 and 125 mg/dL is consistent with prediabetes and should be confirmed with a follow-up test. BUN 11 7 - 25 mg/dL [facility] Creatinine 1.24(H) 0.50 - 1.05 mg/dL [facility] eGFR 47(L) > OR = 60 mL/min/1.7 3m2 [facility] Comment: The eGFR is based on the CKD-EPI 2020 equation. To calculate the new eGFR from a previous Creatinine or Cystatin C result, go to https://www.kidney.org/professionals/ kdoqi/gfr%5Fcalculator BUN/creat ratio 9 6 - 22 (calc) [facility] Sodium 139 135 - 146 mmol/L [facility] Potassium, pl 3.7 3.5 - 5.3 mmol/L [facility] Chloride 99 98 - 110 mmol/L [...] ratio 2.0 1.0 - 2.5 (calc) [facility] Bilirubin, total 0.9 0.2 - 1.2 mg/dL [facility] Alk phos 71 37 - 153 U/L [facility] AST 14 10 - 35 U/L [facility] ALT (SGPT) 11 6 - 29 U/L [facility] Blood 08/23/2022 2:03 PM CDT 08/23/2022 2:04 PM CDT Narrative [facility] - 08/25/2022 1:49 AM CDT FASTING:YES FASTING: YES Joan Sepulveda MD LAB BLOOD ORDERABLES F inal Result [facility] [address] [place] [address] * Occult Blood, Fecal (FIT) (05/02/2018) Stool Historical Provider LAB BODY FLUIDS AND STOOL S ORDERABLES Final Result EXTERNAL LAB from Last 3 Months or Most Recently Relevant to Health Maintenance Insurance [facility] MEDICARE [facility] MEDICARE MEDICARE [facility] Advance Directives For more information, please contact: [phone] * Full Code (Latest Code Status on File) Date Activated Date Inactivated Comments 10/26/2023 9:52 AM 10/27/2023 5:11 AM Care Teams Back Tacker Relationship Specialty Start Date End Date Joan Sepulveda MD PCP - General Family Practice 07/20/22
--- OUTSIDE RECORDS SUMMARY | 2024-07-15 16:21 | XMS_ITS | Encounter Summary ---
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 Protocols Used Blood Pressure - Mcyn-Rywra-FN documented in this encounter Plan of Treatment Not on file documented as of this encounter Visit Diagnoses Not on filedocumented in this encounter Care Teams Kiss Machine Operator Relationship Specialty Start Date End Date Joan Sepulveda MD PCP - General Family Practice 07/20/22 documented as of this encounter
--- OUTSIDE RECORDS SUMMARY | 2024-07-15 16:21 | XMS_ITS | Clinical Summary ---
Author Organization [facility] [address] lto Address [address] [place] [address] Care Team Providers Care Doula Name Role Phone Joan Sepulveda MD Primary [...] cessation. Discussed different types of medications & dxmj-bjc-dbmvcfq aides to help with cessation. Moderate episode [...] & Plan (07/12/2020 4:28 PM CDT): 04/25/18: lw=901 hdl=33 ag=307 fne=171 Tc/hdl=6.6 Pravastatin 40mg daily. We will check [...] medication compliance. Discussed use of a pill program services planner and having family remind her regularly [...] Plan (07/12/2020 4:11 PM CDT): Referral to [facility] for colonoscopy. Aware that their office will call her to set up. number given if she does not receive call. Colonoscopy refused 04/28/2018 07/13/19 21 Depression 05/18/2009 07/12/2020 Chronic pain 06/15/2008 07/12/2020 Hyperlipidemia 06/15/2008 07/12/2020 Tobacco abuse 06/15/2008 07/12/2020 Encounters Date Type Department Care Team Description 07/15/2024 Nurse Triage [facility] Patient Access [address] [place] [address] Joan Sepulveda MD 07/07/2024 Orders Only [facility] Cardiology [address] [place] [address] Yimi Vela MD from Last [...] Comments Hypercholesterolemia 1984 High choles terol; Comments: [facility] 03/01/2015 - Hx Other Medical 1992 degenerative di sc disease; Comments: [facility] 03/01/2015 - Hx Other Medical 2002 E-coli in [facility]; Comments: [facility] 03/01/2015 - Diabetes mellitus (HCC) Diabetes mellitus; Comments: [facility] 03/01/2015 - Memory deficit due [...] on file Legal 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 Gender Identity Not on file Sexual Orientation Not on file Obstetrics History Last Filed Vital Signs Vital Sign Reading Time Taken Comments Blood Pressure 203/84 12/12/2023 1:48 PM SLIDE FORMING MACHINE TENDER Pulse 55 12/12/2023 1:48 PM SLIDE FORMING MACHINE TENDER Temperature 36.6 C (97.9 F) 10/26/2023 8:50 AM CDT Respiratory Rate 18 12/12/2023 1:48 PM SLIDE FORMING MACHINE TENDER Oxygen Saturation 98% 12/12/2023 1:48 PM SLIDE FORMING MACHINE TENDER Inhaled Oxygen Concentration - - Weight 62.5 kg (137 lb 12.8 oz) 12/12/2023 1:48 PM SLIDE FORMING MACHINE TENDER Height 160 cm (5' 3) 12/12/2023 1:48 PM SLIDE FORMING MACHINE TENDER Body Mass Index 24.41 12/12/2023 1:48 PM SLIDE FORMING MACHINE TENDER Plan of Treatment Health Maintenance Due Date [...] ORDERABLES F inal Result [facility] [address] [place] [address] * (ABNORMAL) Lipid panel (08/23/2022 2:03 PM [...] LDL-C. Baldemar ROSENBERG et al. BRENDON. 2013;310(19): 2617-5177 (http://education.Lola Pirindola/faq/KNU088) Chol/HDL ratio 5.4(H) <5.0 (calc) [facility] [...] LAB BLOOD ORDERABLES F inal Result [facility] [address] [place] [address] * (ABNORMAL) Comprehensive metabolic panel (08/23/2022 2:03 PM CDT) Pathologist [facility] Glucose 102(H) 65 - 99 mg/dL Sugar MD [facility] Comment: Fasting reference interval For someone without known diabetes, a glucose value between 100 and 125 mg/dL is consistent with prediabetes and should be confirmed with a follow-up test. BUN 11 7 - 25 mg/dL [facility] Creatinine 1.24(H) 0.50 - 1.05 mg/dL [facility] eGFR 47(L) > OR = 60 mL/min/1.7 3m2 [facility] Comment: The eGFR is based on [...] Alb/glob ratio 2.0 1.0 - 2.5 (calc) [facility] Bilirubin, total 0.9 0.2 - 1.2 mg/dL [facility] Alk phos 71 37 - 153 U/L [facility] AST 14 10 - 35 U/L [facility] ALT (SGPT) 11 6 - 29 U/L [facility] Blood 08/23/2022 2:03 PM CDT 08/23/2022 2:04 PM CDT Narrative [facility] - 08/25/2022 1:49 AM CDT FASTING:YES FASTING: YES us Joan Sepulveda MD LAB BLOOD ORDERABLES F inal Result [facility] [address] [place] [address] * Occult Blood, Fecal (FIT) (05/02/2018) Stool Historical Provider LAB BODY FLUIDS AND STOOL S ORDERABLES Final Result EXTERNAL LAB from Last 3 Months or Most Recently Relevant to Health Maintenance [place] [address] [employer] [place] MEDICARE [facility] MEDICARE MEDICARE [facility] Advance Directives For more information, please contact: [phone] * Full Code (Latest Code Status on File) Date Activated Date Inactivated Comments 10/26/2023 9:52 AM 10/27/2023 5:11 AM Care Teams Doula Relationship Specialty Start Date End Date Joan Sepulveda MD PCP - General Family Practice 07/20/22
--- NOTE | 2024-07-15 16:45 | ECG_ITS ---
Test Date: 2024-07-15 16:49:10 Measurements Intervals [place] Rate: 57 P: 66 UT: 171 QRS: -10 QRSD: 82 T: 45 QT: 422 QTc: 411 Interpretive Statements SINUS BRADYCARDIA CANNOT R/O SEPTAL INFARCT, AGE INDETERMINATE ABNORMAL ECG Compared to ECG 07/15/2024 13:51:29 HEART RATE HAS DECREASED Electronically Signed On 07-15-2024 16:51:27 CDT by Suresh Estes D.O.
[2024-07-15 17:23] LABS: Troponin I < 0.012 ng/mL (0.000-0.034)
== END 2024-07-15 17:49 | disposition home or self-care (01) ==
PROVIDERS: Emergency Provider Emergency Medicine
DX: R07.89 Other chest pain (principal); I10 Essential (primary) hypertension; Z87.891 Personal history of nicotine dependence
CPT/HCPCS: 36415; 71046; 80053; 83690; 84484; 85025; 85610; 85730; 93005; 99284; A9270

== ENCOUNTER 2024-09-25 17:38 | Emergency (ER) | payer MEDICARE, SELFPAY ==
--- NOTE | ~2024-09-25 | XR_ITS ---
XR forearm LT 2V, XR wrist LT min 3V 09/25/2024 18:07 (accession [id number]), 09/25/2024 18:08 (accession [id number]) Indication: Status post fall. Wrist pain. Procedure: 2 views left forearm and 4 views left wrist Comparison: No prior studies for comparison. Findings: There is a distal radial metaphyseal fracture which is extra-articular with mild dorsal angulation. There is ulnar styloid avulsion fracture. Mild dorsal soft tissue swelling. No carpal fractures are seen. Impression: 1: Nondisplaced extra-articular distal radial metaphyseal fracture with dorsal angulation. 2: Ulnar styloid avulsion fracture. Reviewed, dictated and finalized at location O. Impression: 1: Nondisplaced extra-articular distal radial metaphyseal fracture with dorsal angulation. 2: Ulnar styloid avulsion fracture. Impression: 1: Nondisplaced extra-articular distal radial metaphyseal fracture with dorsal angulation. 2: Ulnar styloid avulsion fracture.
[2024-09-25 17:39] VITALS: BP 157/95; PULSE 95; RESP 20; TEMP 36.2; O2SAT 99
--- OUTSIDE RECORDS SUMMARY | 2024-09-25 17:40 | XMS_ITS | Encounter Summary ---
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 * Telephone Encounter - Nina Cabrera MA - 09/22/2024 3:14 PM CDT Pt called stating she was tested by Dr. Cook for dementia and was positive Pt states she was doing ok Until she had a heart attack in August Pt states she was paying a little extra on power bill to try to stay current Since heart attack she renu forgot and now they are going to shut her power off today She was wondering if Dr. Cook can fill out a form for [employer] to help her with this documented in this encounter Plan of Treatment Not on file documented as of this encounter Visit Diagnoses Not on filedocumented in this encounter Care Teams Dynamiter Relationship Specialty Start Date End Date Joan Sepulveda MD PCP - General Family Practice 07/20/22 documented as of this encounter
--- OUTSIDE RECORDS SUMMARY | 2024-09-25 17:40 | XMS_ITS | Encounter Summary ---
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 Gender Identity Not on file Sexual Orientation Not on file documented as of this encounter Plan of Treatment Not on file documented as of this encounter Procedures Procedure Name Priority Date/Time Associated Diagnosis Comments SCAN - RADIOLOGY/IMAGING 07/03/2024 CARDIOLOGY DOCUMENT SCAN 07/03/2024 documented in this encounter Results * SCAN - RADIOLOGY/IMAGING (07/03/2024) Anatomical Region Laterality Modality Other us Provider Scanning Final Result * Cardiology Document Scan (07/03/2024) Anatomical Region Laterality Modality Other us [facility] Nasrin Vela MD CV CARDIAC SERVICES PRO CEDURES Edited Result - Final documented in this encounter Visit Diagnoses Not on filedocumented in this encounter Care Teams Focused Factory Manager Relationship Specialty Start Date End Date Joan Sepulveda MD PCP - General Family Practice 07/20/22 documented as of this encounter
--- OUTSIDE RECORDS SUMMARY | 2024-09-25 17:40 | XMS_ITS | Clinical Summary ---
Author Organization [facility] Address [address] [place] [address] Care Team Providers Care Barge Loader Name Role Phone Elise Hughes MD Primary Care Provider [phone] Source Comments [facility],non-owned Affiliates and Associated Physician Practices is amultiple site organization consisting of ambulatory clinics and hospital sitesin [place], [place], [place] and [place]. This disclosure is being madepursuant to the Care Everywhere program and may not contain all information available regarding this patient. 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 Gender Identity Not on file Sexual Orientation [...] Td or Tdap) 04/01/2023 04/01/2013 COVID-19 VACCINE (1 - season) 2023 DEPRESSION SCREENING 02/06/2024 DIABETES - URINE PROTEIN SCREENING 02/06/2024 05/28/2014 INFLUENZA VACCINE (#1) 2024 12/08/2010, 2009 Respiratory Syncytial Virus (RSV) Vaccine Pt: or [...] 5:41 PM CDT Narrative Resulting Agency Comment [facility] [address] [phone] Elise Hughes MD LAB - URINE CHEMISTRY ORDERABLE S Final Result Performing Organization Address City/[facility]/ZIP Co de Phone Number [facility] INSURANCE BILL [address] [place] [address] * (ABNORMAL) HEMOGLOBIN A1C (05/28/2014 2:54 PM CDT) Hemoglobin A1c 5.9(H) 4.8 - 5.6 % [facility] INSURANCE BILL Comment: . Increased risk for diabetes: 5.7 - 6.4 Diabetes: >6.4 Glycemic control for adults with diabetes: <7.0 Whole blood specimen (specimen) BLOOD SPECIMEN WITH EDTA / Unknown 05/28/2014 2:54 PM CDT 05/28/2014 5:41 PM CDT Narrative Resulting Agency Comment [facility] [address] [phone] Elise Hughes MD LAB - CHEMISTRY ORDERABLES Casandra l Result Performing Organization Address [facility] Co de Phone Number [facility] INSURANCE BILL [address] [place] [address] * (ABNORMAL) COMPREHENSIVE METABOLIC PANEL (05/28/2014 2:54 [...] 5:41 PM CDT Narrative Resulting Agency Comment [address] [phone] us Elise Hughes MD LAB - CHEMISTRY ORDERABLES Casandra l Result [facility] INSURANCE BILL [address] [place] [address] * HEPATITIS C ANTIBODY (07/30/2012 12:35 PM [...] a more specific supplemental or PCR testing. [facility] Ab w/Reflex to Verification test #[id number]. Blood specimen (specimen) BLOOD SPECIMEN / Unknown 07/30/2012 12:35 PM CDT 07/30/2012 5:49 PM CDT Narrative Resulting Agency Comment [facility] [address] [phone] us Elise Hughes MD LAB - CHEMISTRY ORDERABLES Casandra l Result [facility] INSURANCE BILL [address] [place] [address] * MAMMOGRAPHY ORDER (07/24/2012) Anatomical Region Laterality Modality Other us Elise Hughes MD MAMMO ORDERABLES Final Result from Last 3 Months or Most Recently Relevant to Health Maintenance Insurance MEDICARE [facility] Care Teams Barge Loader Relationship Specialty Start Date End Date Elise Hughes MD PCP - General 10/26/08
--- OUTSIDE RECORDS SUMMARY | 2024-09-25 17:40 | XMS_ITS | Encounter Summary ---
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 * Telephone Encounter - Monie Chaparro - 09/17/2024 1:27 PM CDT Pt returned call. She does not have a PCP because Dr. Sepulveda left and she hasn't established care with anyone else. States she has dementia so she will not remember to come in for her appt if we schedule one but she will try. Scheduled appt. Requesting call to discuss paperwork since she does not have a PCP. Contact: * Telephone Encounter - Iris Erickson RN - 09/16/2024 10:17 AM CDT JAMES on advising pt to reach out to her PCP for assistance with forms she is requesting. Also informed her that she needs to schedule a f/u appt s/p NSTEMI from June of this year as she has been a noshow for her last 2 scheduled appt. * Telephone Encounter - Monie Chaparro - 09/16/2024 8:35 AM CDT [employer] is wanting to disconnect her power. Pt is requesting a letter be faxed to [employer] stating herpower getting shut off will aggravate her situation. States the cover letter needs to include patients name, address, phone number, and email, current date, advertising traffic manager signature on the cover letter. Contact: Email: documented in this encounter Plan of Treatment Not on file documented as of this encounter Visit Diagnoses Not on filedocumented in this encounter Care Teams Echocardiographer Relationship Specialty Start Date End Date Joan Sepulveda MD PCP - General Family Practice 07/20/22 documented as of this encounter
--- OUTSIDE RECORDS SUMMARY | 2024-09-25 17:40 | XMS_ITS | Clinical Summary ---
Author Organization [facility] 155 [facility] Address [address] [place] [address] Care Team Providers Care Engineer And Geologist Name Role Phone Joan Sepulveda MD Primary [...] cessation. Discussed different types of medications & usnc-tsw-cqbusff aides to help with cessation. Moderate episode [...] & Plan (07/12/2020 4:28 PM CDT): 04/25/18: xg=793 hdl=33 hw=732 bzk=331 Tc/hdl=6.6 Pravastatin 40mg daily. We will check [...] medication compliance. Discussed use of a pill health education aide and having family remind her regularly to [...] PM CDT): Referral to [facility] for colonoscopy. Aware that their office will call her to set up. number given if she does not receive call. Colonoscopy refused 04/28/2018 07/13/19 Depression 05/18/2009 07/12/2020 Chronic pain 06/15/2008 07/12/2020 Hyperlipidemia 06/15/2008 07/12/2020 Tobacco abuse 06/15/2008 07/12/2020 Encounters Date Type Department Care Team Description 09/22/[address] [facility] [address] [facility] [address] [place] [address] Nina Cabrera MA 09/16/2024 Telephone [facility] Medical [facility] Cardiology [address] [facility] [address] [facility] [address] [place] [address] Patrizia Estrella NP 07/15/2024 Nurse Triage [facility] Medical Group Patient Access [address] [facility] [place] [address] Joan Sepulveda MD 07/07/2024 Orders Only [facility] Cardiology [address] [facility] [address] [facility] [address] [place] [address] Yimi Vela MD 07/04/[address] [facility] Health Information Management [address] [place] [address] Yimi Vela MD from Last 3 Months [...] Comments Hypercholesterolemia 1984 High choles terol; Comments: [facility] 03/01/2015 - Hx Other Medical 1992 degenerative di sc disease; Comments: [facility] 03/01/2015 - Hx Other Medical 2002 E-coli in [facility]; Comments: [facility] 03/01/2015 - Diabetes mellitus (HCC) Diabetes mellitus; Comments: [facility] 03/01/2015 - Memory deficit due [...] on file Legal 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 Gender Identity Not on file Sexual Orientation Not on file Obstetrics History Last Filed Vital Signs Vital Sign Reading Time Taken Comments Blood Pressure 203/84 12/12/2023 1:48 PM ETHYLENE PLANT HELPER Pulse 55 12/12/2023 1:48 PM ETHYLENE PLANT HELPER Temperature 36.6 C (97.9 F) 10/26/2023 8:50 AM CDT Respiratory Rate 18 12/12/2023 1:48 PM ETHYLENE PLANT HELPER Oxygen Saturation 98% 12/12/2023 1:48 PM ETHYLENE PLANT HELPER Inhaled Oxygen Concentration - - Weight 62.5 kg (137 lb 12.8 oz) 12/12/2023 1:48 PM ETHYLENE PLANT HELPER Height 160 cm (5' 3) 12/12/2023 1:48 PM ETHYLENE PLANT HELPER Body Mass Index 24.41 12/12/2023 1:48 PM ETHYLENE PLANT HELPER Plan of Treatment Health Maintenance Due Date Last Done Comments Breast Cancer Screening-Mammogram 1952 Hepatitis C Screening 1952 Osteoporosis Screening-Bone Density Scan 1952 Dilated Eye Exam 1952 Hepatitis B Screening 1970 Zoster Vaccine (1 of 2) 2002 Colon Cancer Screening-FIT 05/03/2019 05/02/2018 DTaP/Tdap/Td Vaccine (2 - Td or Tdap) 04/01/2023 04/01/2013 Albumin Creatinine Ratio, Urine 08/24/2023 Lipid Panel 08/24/2023 08/23/2022, 01/0 08/2021, 04/25/2018, Additional history exists eGFR 08/24/2023 08/23/2022 Hemoglobin A1C 12/28/2023 06/27/2023, 07/06, 02/11/2021, Additional history exists Foot Exam 06/26/2024 06/27/2023, 06/06, 09/06/2022, Additional history exists Depression Screening 10/02/2024 10/03/2023, 10/03/2023, 06/27/2023, Additional history exists Well Visit 65+ 10/02/2024 10/03/2023 Influenza Vaccine (#1) 2024 , 10/02/2018, 04/25/2018, Additional history exists Fall Risk Assessment 10/25/2024 10/26/2023, 10/03/2023, 07/20/2022, Additional history exists Pneumococcal vaccine 65+ Completed 021, 04/25/2018, 04/22/2012, Additional history exists Procedures Procedure Name Priority Date/Time Associated Diagnosis Comments CARDIOLOGY DOCUMENT SCAN Routine 07/05/2024 4:16 PM CDT SCAN - LABS 07/05/2024 CARDIOLOGY DOCUMENT SCAN Routine 07/04/2024 3:48 PM CDT CARDIOLOGY DOCUMENT SCAN Routine 07/04/2024 3:45 PM CDT CARDIOLOGY DOCUMENT SCAN 07/03/2024 SCAN - RADIOLOGY/IMAGING 07/03/2024 POCT HEMOGLOBIN A1C Routine 06/27/2023 3 :37 [...] CARDIAC SERVICES PROC EDURES Final Result * SCAN - LABS (07/05/2024) us Provider Scanning Final Result * Cardiology Document Scan (07/04/2024 3:48 PM CDT) Anatomical Region Laterality Modality Other Yimi Vela MD CV CARDIAC SERVICES PRO CEDURES Final Result * Cardiology Document Scan (07/04/2024 3:45 PM CDT) Anatomical Region Laterality Modality Other Yimi Vela MD CV CARDIAC SERVICES PRO CEDURES Final Result * SCAN - RADIOLOGY/IMAGING (07/03/2024) Anatomical Region Laterality Modality Other us Provider Scanning Final Result * Cardiology Document Scan (07/03/2024) Anatomical Region Laterality Modality Other Yimi Vela MD CV CARDIAC SERVICES PRO CEDURES Edited Result - Final * POCT hemoglobin A1c (06/27/2023 3:37 PM CDT) Hemoglobin A1C, POC 5.8 % Blood 06/27/2023 3:37 PM CDT us Joan Sepulveda MD POINT OF CARE TEST [...] MD LAB URINE ORDERABLES F inal Result [facility] [address] [place] [address] * (ABNORMAL) Lipid panel (08/23/2022 2:03 PM CDT) Cholesterol 248(H) <200 mg/dL [facility] HDL 46(L) > OR = 50 mg/dL [facility] Triglycerides 169(H) <150 mg/dL [email or web address] LDL 170(H) mg/dL (calc) [facility] Comment: Reference range: <100 Desirable range <100 mg/dL for primary prevention; <70 mg/dL for patients with CHD or diabetic patients with > or = 2 CHD risk factors. LDL-C is now calculated using the Iraida calculation, which is a validated novel method providing better accuracy than the Friedewald equation in the estimation of LDL-C. Baldemar ROSENBERG et al. BRENDON. 2013;310(19): 1188-2706 (http://education.[employer]/faq/UZS489) Chol/HDL ratio 5.4(H) <5.0 (calc) Sugar [facility] Non-HDL, (LDL+VLDL) 202(H) <130 mg/dL (calc) [facility] Comment: For patients with diabetes plus 1 major ASCVD risk factor, treating to a non-HDL-C goal of <100 mg/dL (LDL-C of <70 mg/dL) is considered a therapeutic option. Blood 08/23/2022 2:03 PM CDT 08/23/2022 2:04 PM CDT Narrative [facility] - 08/25/2022 1:49 AM CDT FASTING:YES FASTING: YES Joan Sepulveda MD LAB BLOOD ORDERABLES F inal Result [facility] [address] [place] [address] * (ABNORMAL) Comprehensive metabolic panel (08/23/2022 2:03 PM CDT) Glucose 102(H) 65 - 99 mg/dL [facility] Comment: Fasting reference interval For someone without known diabetes, a glucose value between 100 and 125 mg/dL is consistent with prediabetes and should be confirmed with a follow-up test. BUN 11 7 - 25 mg/dL [facility] Creatinine 1.24(H) 0.50 - 1.05 mg/dL [facility] eGFR 47(L) > OR = 60 mL/min/1.7 3m2 [facility] Comment: The eGFR is based on the CKD-EPI 2020 equation. To calculate the new eGFR from a previous Creatinine or Cystatin C result, go to https://www.kidney.org/professionals/ kdoqi/gfr%5Fcalculator BUN/creat ratio 9 6 - 22 (calc) [facility] Sodium 139 135 - 146 mmol/L [facility] Potassium, pl 3.7 3.5 - 5.3 mmol/L [facility] Chloride 99 98 - 110 mmol/L [facility] CO2 30 20 - 32 mmol/L [facility] Calcium 10.0 8.6 - 10.4 mg/dL [facility] Protein, sr 7.4 6.1 - 8.1 g/dL [facility] Albumin 4.9 3.6 - 5.1 g/dL [facility] GLOBULIN 2.5 1.9 - 3.7 g/dL (calc) [facility] Alb/glob ratio 2.0 1.0 - 2.5 (calc) [facility] Bilirubin, total 0.9 0.2 - 1.2 mg/dL [facility] Alk phos 71 37 - 153 U/L [facility] AST 14 10 - 35 U/L [facility] ALT (SGPT) 11 6 - 29 U/L [facility] Blood 08/23/2022 2:03 PM CDT 08/23/2022 2:04 PM CDT Narrative [facility] - 08/25/2022 1:49 AM CDT FASTING:YES FASTING: YES Joan Sepulveda MD LAB BLOOD ORDERABLES F inal Result [facility] [address] [place] [address] * Occult Blood, Fecal (FIT) (05/02/2018) Stool Historical Provider LAB BODY FLUIDS AND STOOL S ORDERABLES Final Result EXTERNAL LAB from Last 3 Months or Most Recently Relevant to Health Maintenance Insurance [facility] MEDICARE [facility] MEDICARE AET[employer] MEDICARE GOLD MEDICARE [facility] Advance Directives For more information, please contact: [phone] * Full Code (Latest Code Status on File) Date Activated Date Inactivated Comments 10/26/2023 9:52 AM 10/27/2023 5:11 AM Care Teams Engineer And Geologist Relationship Specialty Start Date End Date Joan Sepulveda MD PCP - General Family Practice 07/20/22
--- OUTSIDE RECORDS SUMMARY | 2024-09-25 17:40 | XMS_ITS | Encounter Summary ---
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
[2024-09-25] MEDS: ACETAMINOPHEN 500 MG TABLET 1000 MG PO (18:00)
--- OUTSIDE RECORDS SUMMARY | 2024-09-25 18:11 | XMS_ITS | Encounter Summary ---
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 Contact: Email: [email or web address] documented in this encounter Plan of Treatment Not on file documented as of this encounter Visit Diagnoses Not on filedocumented in this encounter Care Teams Card Sorter Relationship Specialty Start Date End Date Joan Sepulveda MD PCP - General Family Practice 07/20/22 documented as of this encounter
--- OUTSIDE RECORDS SUMMARY | 2024-09-25 18:11 | XMS_ITS | Encounter Summary ---
Author Organization [facility] Healthcare Address [facility] [place] [address] Care Team Providers Care Video Clerk Name Role Phone Joan Sepulveda MD Primary Care Provider Encounter Details Date Type Department Care Team (Late st Contact Info) Description 07/04/2024 Orders Only [facility] Health Information Management [address] [place] [address] Yimi Vela MD [address] [place] [address] [address] [place] [id number] Social History Tobacco Use Types Packs/Day Years [...] on file 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
--- OUTSIDE RECORDS SUMMARY | 2024-09-25 18:11 | XMS_ITS | Encounter Summary ---
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
--- OUTSIDE RECORDS SUMMARY | 2024-09-25 18:11 | XMS_ITS | Clinical Summary ---
Author Organization [facility] 155 [facility] Address [address] [place] [address] Care Team Providers Care Petal Shaper Hand Name Role Phone Joan Sepulveda MD Primary [...] cessation. Discussed different types of medications & ltdh-efw-sfuaqxc aides to help with cessation. Moderate episode [...] & Plan (07/12/2020 4:28 PM CDT): 04/25/18: oe=697 hdl=33 vf=182 eko=854 Tc/hdl=6.6 Pravastatin 40mg daily. We will check [...] medication compliance. Discussed use of a pill cyber ops planner and having family remind her regularly [...] Plan (07/12/2020 4:11 PM CDT): Referral to [facility] for colonoscopy. Aware that their office will call her to set up. number given if she does not receive call. Colonoscopy refused 04/28/2018 07/13/19 Depression 05/18/2009 07/12/2020 Chronic pain 06/15/2008 07/12/2020 Hyperlipidemia 06/15/2008 07/12/2020 Tobacco abuse 06/15/2008 07/12/2020 Encounters Date Type Department Care Team Description 09/22/2024 Telephone [facility] [address] [facility] [address] [place] [address] Nina Cabrera MA 09/16/2024 Telephone [facility] Medical [facility] Cardiology [address] [facility] [address] [place] [address] Patrizia Estrella NP 07/15/2024 Nurse Triage [facility] Medical Group Patient Access [address] [facility] [address] [place] [address] Joan Sepulveda MD 07/07/2024 Orders Only [facility] Cardiology [address] [facility] [address] [place] [address] Yimi Vela MD 07/04/2024 Orders Only [facility] Health Information Management [address] [place] [address] Yimi Vela MD from Last 3 Months [...] Comments Hypercholesterolemia 1984 High choles terol; Comments: [facility] 03/01/2015 - Hx Other Medical 1992 degenerative di sc disease; Comments: [facility] 03/01/2015 - Hx Other Medical 2002 E-coli in [facility]; Comments: [facility] 03/01/2015 - Diabetes mellitus (HCC) Diabetes mellitus; Comments: [facility] 03/01/2015 - Memory deficit due to [...] on file 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 Gender Identity Not on file Sexual Orientation Not on file Obstetrics History Last Filed Vital Signs Vital Sign Reading Time Taken Comments Blood Pressure 203/84 12/12/2023 1:48 PM ALTERATIONS EXPERT Pulse 55 12/12/2023 1:48 PM ALTERATIONS EXPERT Temperature 36.6 C (97.9 F) 10/26/2023 8:50 AM CDT Respiratory Rate 18 12/12/2023 1:48 PM ALTERATIONS EXPERT Oxygen Saturation 98% 12/12/2023 1:48 PM ALTERATIONS EXPERT Inhaled Oxygen Concentration - - Weight 62.5 kg (137 lb 12.8 oz) 12/12/2023 1:48 PM ALTERATIONS EXPERT Height 160 cm (5' 3) 12/12/2023 1:48 PM ALTERATIONS EXPERT Body Mass Index 24.41 12/12/2023 1:48 PM ALTERATIONS EXPERT Plan of Treatment Health Maintenance Due Date [...] LAB URINE ORDERABLES F inal Result [facility] [address] [place] [address] * (ABNORMAL) Lipid panel (08/23/2022 2:03 PM CDT) Cholesterol 248(H) <200 mg/dL [facility] HDL 46(L) > OR = 50 mg/dL [facility] Triglycerides 169(H) <150 mg/dL [facility] LDL 170(H) mg/dL (calc) [facility] [...] LDL-C. Baldemar ROSENBERG et al. BRENDON. 2013;310(19): 0097-6597 (http://education.[employer])/faq/DZV954) Chol/HDL ratio 5.4(H) <5.0 (calc) [facility] Non-HDL, (LDL+VLDL) 202(H) <130 mg/dL (calc) [facility] Comment: For patients with diabetes plus 1 major ASCVD risk factor, treating to a non-HDL-C goal of <100 mg/dL (LDL-C of <70 mg/dL) is considered a therapeutic option. Blood 08/23/2022 2:03 PM CDT 08/23/2022 2:04 PM CDT Narrative [facility] - 08/25/2022 1:49 AM CDT FASTING:YES FASTING: YES Joan Sepulveda MD LAB BLOOD ORDERABLES F inal Result [facility] [address] [place] [address] * (ABNORMAL) Comprehensive metabolic panel (08/23/2022 2:03 PM CDT) Glucose 102(H) 65 - 99 mg/dL [facility] Comment: Fasting reference interval For someone without known diabetes, a glucose value between 100 and 125 mg/dL is consistent with prediabetes and should be confirmed with a follow-up test. BUN 11 7 - 25 mg/dL [facility] Creatinine 1.24(H) 0.50 - 1.05 mg/dL [facility] eGFR 47(L) > OR = 60 mL/min/1.7 3m2 [facility] Comment: The eGFR is based on the CKD-EPI 2020 equation. To calculate the new eGFR from a previous Creatinine or Cystatin C result, go to https://www.kidney.org/professionals/ kdoqi/gfr%5Fcalculator BUN/creat ratio 9 6 - 22 (calc) [facility] Sodium 139 135 - 146 mmol/L [facility] Potassium, pl 3.7 3.5 - 5.3 mmol/L [facility] Chloride 99 98 - 110 mmol/L [facility] CO2 30 20 - 32 mmol/L [facility] Calcium 10.0 8.6 - 10.4 mg/dL [facility] Protein, sr 7.4 6.1 - 8.1 g/dL [facility] Albumin 4.9 3.6 - 5.1 g/dL [facility] GLOBULIN 2.5 1.9 - 3.7 g/dL (calc) [facility] Alb/glob ratio 2.0 1.0 - 2.5 (calc) [facility] Bilirubin, total 0.9 0.2 - 1.2 [...] LAB BLOOD ORDERABLES F inal Result [facility] [address] [place] [address] * Occult Blood, Fecal (FIT) (05/02/2018) Stool Historical Provider LAB BODY FLUIDS AND STOOL S ORDERABLES Final Result EXTERNAL LAB from Last 3 Months or Most Recently Relevant to Health Maintenance Insurance [facility] MEDICARE [facility] MEDICARE AETNA MEDICARE GOLD MEDICARE [facility] Advance Directives For more information, please contact: [phone] * Full Code (Latest Code Status on File) Date Activated Date Inactivated Comments 10/26/2023 9:52 AM 10/27/2023 5:11 AM Care Teams Petal Shaper Hand Relationship Specialty Start Date End Date Joan Sepulveda MD PCP - General Family Practice 07/20/22
--- OUTSIDE RECORDS SUMMARY | 2024-09-25 18:11 | XMS_ITS | Encounter Summary ---
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
--- NOTE | 2024-09-25 18:17 | ED.FALL ---
HPI - Fall General Chief Complaint: Fall Stated Complaint: arm pain Time Seen by Provider: 09/25/24 17:40 Source: patient and family Mode of arrival: ambulatory Limitations: no limitations History of Present Illness HPI Narrative: This is a 73-year-old female that recently had a fall 2 days ago on an outstretched hand on the left and there is presents with some pain and swelling in the distal forearm and wrist has good range of motion although limited secondary to pain and swelling no numbness or tingling has a strong brisk radial pulse on the left. complaint: fall Onset (ago): day(s) Fall from: standing Fall witnessed: no Place fall occurred: home Loss of consciousness: none Prolonged down time: no Context: tripped/slipped Related Data Home Medications ?Medication ?Instructions ?Recorded ?Confirmed ?Last Taken ?Type bupropion HCl 150 mg 24 hr tablet, 150 mg PO DAILY 07/04/24 07/04/24 Unknown History extended release donepezil 10 mg tablet 10 mg PO DAILY 07/04/24 07/04/24 Unknown History rosuvastatin 20 mg tablet 20 mg PO DAILY 07/04/24 07/04/24 Unknown History Allergies Allergy/AdvReac Type Severity Reaction Status Date / Time No Known Allergies Allergy Unknown Verified 01/07/24 22:43 Review of Systems Review of Systems: All systems reviewed & are unremarkable except as noted in HPI and below PMFSH Past Medical History Medical History Tachycardia Hypertension Social History Social History Smoking packs per day: 1 Smoking cigarettes per day: 20.0 Smoking status: Former smoker Tobacco type: cigarettes Smoking end date: 02/06/12 Alcohol intake: never Substance use: never Do You Feel Safe in your Home?: No Lack of Transportation: No Lack of Food: Never True Current Housing: I Have Housing Concerned About Future Housing: No Difficulty Paying Gas/Electric Bills: No Difficulty Paying for Meds: No Currently Unemployed: No Education: High School Diploma/GED Difficulty w/ Childcare or Family Care: No Gender identity (if verbalized by the patient): Female Spiritual care concerns: No Exam Const: General: healthy appearing Nutritional Appearance: well nourished Orientation/consciousness: patient oriented x3 Limitations: no limitations Neck: Neck: normal visual inspection and no lymphadenopathy Chest: Chest palpation & inspection: normal inspection of the chest Resp: Effort & Inspection: normal respiratory effort Auscultation: clear to auscultation bilaterally Cardio: Rate: regular rate Rhythm: regular rhythm GI: GI Palp: Yes Soft to palpation Auscultation: normal bowel sounds Urinary Catheter: Urinary Catheter: patent and draining Back/Spine/Pelvis: Back: no CVA tenderness Skin: General skin exam: normal color Wounds: wounds noted Neuro: General: patient oriented x3 and moves all extremities Extrem: Other: Swelling distal left wrist with good range of motion no numbness or tingling has a brisk radial pulse on the left. Course Course Emergency Course: Patient received Tylenol extra-strength and OCL placed on left wrist and forearm after x-ray review showed distal metaphyseal fracture nondisplaced. Vital Signs Vital signs: Vital Signs Temperature 36.2 C L 09/25/24 17:39 Pulse Rate 95 09/25/24 17:39 Respiratory Rate 20 09/25/24 17:39 Blood Pressure 157/95 H 09/25/24 17:39 Pulse Oximetry 99 09/25/24 17:39 Oxygen Delivery Room Air 09/25/24 17:39 Temperature 36.2 C L 09/25/24 17:39 Pulse Rate 95 09/25/24 17:39 Respiratory Rate 20 09/25/24 17:39 Blood Pressure 157/95 H 09/25/24 17:39 Pulse Oximetry 99 09/25/24 17:39 Oxygen Delivery Room Air 09/25/24 17:39 Critical Care Time Critical Care Time Critical Care Time: No Discharge Plan Discharge Clinical Impression: Left wrist fracture Patient Disposition: Home Condition: Stable Instructions: Antibiotic Form, Wrist Fracture in Adults (ED) Additional Instructions: advised to follow-up with primary care physician within the next 3 to 5 days for further evaluation and treatment. Can take Tylenol extra-strength as needed. Patient Language: Maori Prescriptions: New tramadol 50 mg tablet 50 mg PO Q6H PRN (Reason: pain) Qty: 20 0RF No Action bupropion HCl 150 mg tablet extended release 24 hr 150 mg PO DAILY donepezil 10 mg tablet 10 mg PO DAILY rosuvastatin 20 mg tablet 20 mg PO DAILY ticagrelor [Brilinta] 90 mg Tablet 90 mg PO Q12HR Qty: 180 3RF aspirin 81 mg Tablet,Delayed Release (Dr/Ec) 81 mg PO QAM Qty: 30 0RF carvedilol [Coreg] 6.25 mg Tablet 6.25 mg PO Q12HR Qty: 60 0RF Follow-up/Referrals: Christophe Tripp DO [Physician, Family Practice] UNKNOWN,DOCTOR [Primary Care Provider] Time of Disposition: 18:22
== END 2024-09-25 18:49 | disposition home or self-care (01) ==
PROVIDERS: Emergency Provider Emergency Medicine
DX: S62.102A Fracture of unspecified carpal bone, left wrist, initial encounter for closed fracture (principal); I10 Essential (primary) hypertension; Z87.891 Personal history of nicotine dependence; W18.39XA Other fall on same level, initial encounter
CPT/HCPCS: 29125; 73090; 73110; 99284; A4565; A9270

== ENCOUNTER 2024-11-08 15:00 | Emergency (ER) | payer MEDICARE, SELFPAY ==
[2024-11-08] VITALS (16 sets, daily range): BP systolic 148–175; BP diastolic 73–89; PULSE 55–72; RESP 13–20; TEMP 36.9; O2SAT 94–100
--- NOTE | ~2024-11-08 | CT_ITS ---
EXAMINATION: CT brain ingrid medel, 11/08/2024 16:19 CDT HISTORY: Fall this AM, anterior head injury/ dizziness COMPARISON: No comparisons available. Technique: Axial images obtained of the brain without contrast. One or more of the following dose reduction techniques were used: automated exposure control, adjustment of the mA and/or kV according to patient size, use of iterative reconstruction technique. Findings: No acute infarct or parenchymal hemorrhage. No abnormal mass or mass effect. No midline shift. No extra-axial fluid collections. No hydrocephalus. Mastoid air cells unremarkable. Sinuses and orbits unremarkable. No acute fracture. No significant facial or scalp soft tissue swelling evident. No radiopaque foreign body is seen. Impression: 1.No acute intracranial abnormality. Reviewed, dictated and finalized at location P. Impression: 1.No acute intracranial abnormality.
--- NOTE | 2024-11-08 16:08 | ED_ITS ---
HPI - Dizziness General Chief Complaint: Dizziness Stated Complaint: hypertension, dizzy, fall Source: patient Mode of arrival: ambulatory Limitations: no limitations History of Present Illness HPI Narrative: 73 year old female presents to the Emergency Department complaining of elevated blood pressure. She has been running high and adjustments have been made in her home medications. She was told if BP gets above 180 to come to Emergency Department. She denies any chest pain, shortnss of breath, headache or visual changes. Patient did get light headed earlier today and fell striking her head against door jam after standing up from bed. Denies any loss of consciousness. MD elicited complaint: lightheadedness Context: change in medication Associated symptoms: denies other symptoms Related Data Home Medications ?Medication ?Instructions ?Recorded ?Confirmed ?Last Taken ?Type donepezil 10 mg tablet 10 mg PO DAILY 07/04/2410/07 Unknown History rosuvastatin 20 mg tablet 20 mg PO DAILY 07/04/2410/07 Unknown History Allergies Allergy/AdvReac Type Severity Reaction Status Date / Time No Known Allergies Allergy Unknown Verified 10/27/24 11:35 Review of Systems 2 Review of Systems: All systems reviewed & are unremarkable except as noted in HPI and below Constitutional: Constitutional: Reports as per HPI, Denies chills, Denies fever(s) and Denies weakness Eyes: Eyes: Reports as per HPI and Denies change in vision ENT: Reports system reviewed and no additional complaints, except as documented Cardiovascular: Cardiovascular: Reports as per HPI, Denies chest pain, Denies rapid heart rate and Denies slow heart rate Respiratory: Respiratory: Reports as per HPI, Denies chest congestion, Denies cough and Denies dyspnea Gastrointestinal: Gastrointestinal: Reports as per HPI, Denies abdominal pain, Denies diarrhea, Denies nausea and Denies vomiting Genitourinary: Genitourinary: Reports no additional female genitourinary complaints, Denies nocturia, Denies dysuria and Denies flank pain Musculoskeletal: Musculoskeletal: Reports no additional musculoskeletal complaints, Denies back pain and Denies joint swelling Integumentary/Breasts: Skin/Breast: Reports system reviewed and no additional complaints, except as docu Neurologic: Reports system reviewed and no additional complaints, except as documented, Denies confusion, Denies headache(s), Denies focal weakness, Denies numbness and Denies weakness Psychiatric: Psychiatric: Reports no additional psychiatric complaints Endocrine: Endocrine: Reports no additional endocrine complaints Hematologic/Lymphatic: Hematologic/Lymphatic: Reports no additional hematologic/lymphatic complaints Allergic/Immunologic: Allergic/Immunologic: Reports no additional allergic/immunologic complaints FOR[facility], [facility] Past Medical History Medical History Tachycardia Hypertension Social History Social History Smoking packs per day: 1 Smoking cigarettes per day: 20.0 Smoking status: Former smoker Tobacco type: cigarettes Smoking end date: 02/06/12 Alcohol intake: never Substance use: never Lack of Transportation: No Lack of Food: Never True Current Housing: I Have Housing Concerned About Future Housing: No Difficulty Paying Gas/Electric Bills: No Difficulty Paying for Meds: No Currently Unemployed: No Education: High School Diploma/GED Difficulty w/ Childcare or Family Care: No Gender identity (if verbalized by the patient): Female Spiritual care concerns: No Exam 2 Const: General: healthy appearing Nutritional Appearance: well nourished Orientation/consciousness: patient oriented x3 Limitations: no limitations HENMT: Head: normal to inspection Face/Nose/Sinus: Normal external nose present Face and sinus: normal facial exam Mouth: Yes Normal oral and palatal mucosa present Throat: posterior oropharynx normal Eyes: Pupils: Equal, round and reactive pupils present EOM: EOMs intact bilaterally Direct Ophthalmoscopy: no photophobia Neck: Neck: normal visual inspection and no meningeal signs Chest: Chest palpation & inspection: normal inspection of the chest Resp: Effort & Inspection: normal respiratory effort Auscultation: clear to auscultation bilaterally Cardio: Rate: regular rate Rhythm: regular rhythm Heart sounds: no murmurs GI: Inspection: non-distended : General: Yes bladder normal to palpation Back/Spine/Pelvis: Back: no CVA tenderness Skin: General skin exam: normal color Rashes: no rashes Wounds: no wounds Neuro: General: patient oriented x3, moves all extremities, no meningeal signs, no focal motor deficits and CN's II-XI intact bilaterally Cranial nerves: Yes Nystagmus not present Speech: normal speech Gait exam (Neuro): Normal gait present Extrem: General: normal to inspection and no clubbing, cyanosis or edema Psych: Mental Status: mental status grossly normal Course Course Emergency Course: 73 y/o female presents to the ED c/o elevated BP. Her meds were changed recently by PCP to help control BP. She states she was told to come to the ED if BP got above 180. Denies chest pain, shortness of breath, nausaea, vomiting, diarrhea, headache or visual changes. PE: no acute findings CBC: H/H 12.3/36.7, Plt 145; wbc 4.7 with 55 S, 34 L, 8 M CMP: Na 143, K 3.7, Cl 107, CO2 26, Glc 101, BUN 13, Cr 0.86; LFT's normal TNI: <0.012 EKG: SB, 57, PRWP, NAC UA: unremarkable CT Head: no acute findings Tx: operator assistant i cementing, pulse ox, saline lock, BP monitor *reviewed and discussed results with patient and her family. Discussed further management. Patient and family voice understanding and agreement. Instructions Vital Signs Vital signs: Vital Signs Temperature 36.9 C 11/08/24 15:00 Pulse Rate 70 11/08/24 15:00 Respiratory Rate 18 11/08/24 15:00 Blood Pressure 175/89 H 11/08/24 15:00 Pulse Oximetry 99 11/08/24 15:00 Oxygen Delivery Room Air 11/08/24 15:00 Temperature 36.9 C 11/08/24 15:00 Pulse Rate 62 11/08/24 17:02 Respiratory Rate 19 11/08/24 16:46 Blood Pressure 151/86 H 11/08/24 17:02 Pulse Oximetry 100 11/08/24 17:02 Oxygen Delivery Room Air 11/08/24 17:02 MDM - Dizziness Lab Data 11/08/24 16:54 11/08/24 16:54 Labs: Lab Results 11/08/24 11/08/24 Range/Units 16:37 16:54 WBC 4.7 L (4.8-10.8) K/mm3 RBC 3.91 L (4.20-5.40) M/mm3 Hgb 12.3 (11.7-13.8) g/dL Hct 36.7 (35.0-42.0) % MCV 93.9 (78.0-102.0) fL MCH 31.5 H (27.0-31.0) pg MCHC 33.5 (32-36) g/dL RDW 14.0 (11.6-14.4) % Plt Count 145 L (150-420) K/mm3 MPV 10.6 (9.2-11.8) fl Immature Gran % (Auto) 0.4 H (0.0-0.0) % Neut % (Auto) 55.1 (50.0-70.0) % Lymph % (Auto) 33.8 (18.0-42.0) % [place] % (Auto) 8.2 (2.0-11.0) % Eos % (Auto) 1.9 (1.0-6.0) % Baso % (Auto) 0.6 (0.0-1.0) % Lymph # (Auto) 1.57 (1.10-4.50) K/mm3 [place] # (Auto) 0.38 (0.10-0.90) K/mm3 Eos # (Auto) 0.09 (0.02-0.50) K/mm3 Baso # (Auto) 0.03 (0.00-0.10) K/mm3 Abs Immat Gran (auto) 0.02 H (0.00-0.00) K/mm3 Absolute Neuts (auto) 2.56 (1.70-7.20) K/mm3 Absolute Nucleated RBC 0.00 (0.00-0.00) K/mm3 Nucleated RBC % 0.0 (0-0.0) % Sodium 143 (137-145) mmol/L Potassium 3.9 (3.4-5.0) mmol/L Chloride 107 (98-107) mmol/L Carbon Dioxide 26 (22-30) mmol/L Anion Gap 10 (4-12) mmol/L BUN 13 (7-17) mg/dL Creatinine 0.86 (0.7-1.0) mg/dL Estim Creat Clear Calc 43 ml/min Estimated GFR > 60 (59 - ) Glucose 101 (65-110) mg/dL Calculated Osmolality 296 H (285-295) mOsm/kg Calcium 9.6 (8.4-10.2) mg/dL Total Bilirubin 0.7 (0.2-1.3) mg/dL AST 31 (14-36) U/L ALT 27 (6-35) U/L Alkaline Phosphatase 67 (38-126) U/L Troponin I < 0.012 (0.000-0.034) ng/mL Total Protein 7.2 (6.3-8.2) g/dL Albumin 4.4 (3.5-5.1) g/dL Urine Color Light yellow (Yellow) Urine Appearance Clear (Clear) Urine pH 6.5 (5.0-8.0) Ur Specific [place] <= 1.005 L (1.010-1.020) Urine Protein Negative (Negative) Urine Glucose (UA) Negative (Negative) Urine Ketones Negative (Negative) Ur Blood (Man) Negative (Negative) Urine Nitrate Negative (Negative) Urine Bilirubin Negative (Negative) Urine Urobilinogen 0.2 (0.2-1.0) mg/dL Ur Leukocyte Esterase Negative (Negative) Discharge Plan Discharge Clinical Impression: Hypertension Patient Disposition: Home Condition: Stable Instructions: Hypertension (ED) Additional Instructions: Keep diary of blood pressure readings for your physician to review Continue home medications Follow up Primary Care Physician Patient Language: Yi Prescriptions: No Action bupropion HCl 150 mg tablet extended release 24 hr 150 mg PO DAILY Qty: 30 0RF mirtazapine 7.5 mg tablet 7.5 mg PO QHS Qty: 30 2RF donepezil 10 mg tablet 10 mg PO DAILY rosuvastatin 20 mg tablet 20 mg PO DAILY ticagrelor [Brilinta] 90 mg Tablet 90 mg PO Q12HR Qty: 180 3RF aspirin 81 mg Tablet,Delayed Release (Dr/Ec) 81 mg PO QAM Qty: 30 0RF carvedilol 6.25 mg tablet 6.25 mg PO Q12H Qty: 60 5RF Rx Instructions: must administer with a meal/food losartan 100 mg tablet 100 mg PO DAILY Qty: 90 2RF Follow-up/Referrals: Bere Hartmann NP [Primary Care Provider, [facility]] Time of Disposition: 18:04
--- NOTE | 2024-11-08 16:13 | ECG_ITS ---
Test Date: 2024-11-08 16:33:27 Measurements Intervals [place] Rate: 57 P: 62 NC: 173 QRS: -16 QRSD: 79 T: 50 QT: 425 QTc: 414 Interpretive Statements SINUS BRADYCARDIA CANNOT R/O SEPTAL INFARCT, AGE INDETERMINATE BASELINE WANDER- V3 ABNORMAL ECG Compared to ECG 07/15/2024 16:49:10 No significant changes Electronically Signed On 11-09-2024 08:37:16 CDT by Suresh Estes D.O.
[2024-11-08 16:57] LABS: Hematocrit 36.7 % (35.0-42.0); Hemoglobin 12.3 g/dL (11.7-13.8); Immature Granulocyte Percent A 0.4 % (0.0-0.0); Lymphocytes Absolute Auto 1.57 K/mm3 (1.10-4.50); Mean Corpuscular HGB Conc 33.5 g/dL (32-36); Mean Corpuscular Hemoglobin 31.5 pg (27.0-31.0); Mean Corpuscular Volume 93.9 fL (78.0-102.0); Nucleated Red Blood Cells Absolute Auto 0.00 K/mm3 (0.00-0.00); Nucleated Red Blood Cells Perc 0.0 % (0-0.0); Platelet Count Result 145 K/mm3 (150-420); Red Blood Count 3.91 M/mm3 (4.20-5.40); White Blood Count 4.7 K/mm3 (4.8-10.8)
[2024-11-08 17:01] LABS: Appearance Urine Clear (Clear); Glucose Urine UA Negative (Negative); Nitrate Urine Negative (Negative); Specific Grav Ur <= 1.005 (1.010-1.020)
[2024-11-08 17:02] LABS: Add Urine Microscopic? NO; Leukocyte Esterase Ur Negative (Negative)
[2024-11-08 17:09] LABS: Alanine Aminotransferase 27 U/L (6-35); Albumin Level 4.4 g/dL (3.5-5.1); Alkaline Phosphatase 67 U/L (38-126); Anion Gap 10 mmol/L (4-12); Aspartate Amino Transferase 31 U/L (14-36); Bilirubin,Total 0.7 mg/dL (0.2-1.3); Blood Urea Nitrogen 13 mg/dL (7-17); Calcium 9.6 mg/dL (8.4-10.2); Carbon Dioxide 26 mmol/L (22-30); Chloride 107 mmol/L (98-107); Estimated CRCL calculation 43 ml/min; Estimated Glomerular Filt Rate > 60; Glucose 101 mg/dL (65-110); Osmolality Calculated 296 mOsm/kg (285-295); Potassium 3.9 mmol/L (3.4-5.0); Sodium 143 mmol/L (137-145); Total Protein 7.2 g/dL (6.3-8.2)
[2024-11-08 17:20] LABS: Troponin I < 0.012 ng/mL (0.000-0.034)
== END 2024-11-08 18:30 | disposition home or self-care (01) ==
PROVIDERS: Emergency Provider Emergency Medicine; PCP Nurse Practitioner Family
DX: I10 Essential (primary) hypertension (principal)
CPT/HCPCS: 36415; 70450; 80053; 81003; 84484; 85025; 93005; 99284

== ENCOUNTER 2024-12-15 15:41 | Outpatient (CLI) | payer MEDICARE, SELFPAY ==
--- OUTSIDE RECORDS SUMMARY | 2024-12-15 15:45 | XMS_ITS | Clinical Summary ---
Author Organization [facility] [address] [facility] lto Address [address] [place] [address] Care Team Providers Care Associate Professor Of Automation Name Role Phone Joan Sepulveda MD Primary Care Provider Allergies No known active allergies Medications omega-3 fatty acids-fish oil (FISH OIL) 360-1,200 mg capsule 0 0 6 Active Additional Information Patient not taking.Reported on 12/11/2024 blood glucose diagnostic (glucose blood) strip 1 each by Not Applicable route 4 Active traZODone (DESYREL) 50 mg tabletIndicati ons:Chronic insomnia Take 1 tablet (50 mg total) by mouth nightly as needed for sleep for sleep 90 tablet 1 4 Active Additional Information Patient not taking.Reported on 12/11/2024 cyanocobalamin (Vitamin B-12) 1,000 mcg tabletIndicati ons:Prevention of Vitamin B12 Deficiency Take 1 tablet (1,000 mcg total) by mouth daily 100 tablet 3 4 Active Additional Information Patient not taking.Reported on 12/11/2024 buPROPion XL (WELLBUTRIN XL) 150 mg 24 hr tabletIndicati ons:Anxiety with Depression Take 1 tablet (150 mg total) by mouth every morning 100 tablet 1 4 Active rosuvastatin (CRESTOR) 20 mg tabletIndicati ons:Hyperlipid emia due to type 2 diabetes mellitus (HCC),Encounte r for Medicare annual wellness exam Take 1 tablet (20 mg total) by mouth daily 100 tablet 3 4 Active donepeziL (ARICEPT) 10 mg tabletIndicati ons:Moderate early onset Alzheimer's dementia without behavioral disturbance, psychotic disturbance, mood disturbance, or anxiety (HCC) TAKE 1/2 TABLET BY MOUTH ONCE A DAY FOR TWO WEEKS, THEN ONE TABLET ONCE A DAY 90 tablet 5 5 Active aspirin 81 mg enteric coated tablet Take 1 tablet (81 mg total) by mouth 5 Active carvediloL (COREG) 6.25 mg tablet Take 1 tablet (6.25 mg total) by mouth 5 Active mirtazapine (REMERON) 7.5 mg tablet Take 1 tablet (7.5 mg total) by mouth 5 Active ticagrelor (BRILINTA) 90 mg tablet Take 1 tablet (90 mg total) by mouth 5 Active losartan (COZAAR) 100 mg tablet Take 1 tablet (100 mg total) by mouth daily 5 Active losartan (COZAAR) 50 mg tabletIndicati ons:Hypertensi on associated with type 2 diabetes mellitus (HCC),Encounte r for Medicare annual wellness exam Take 1 tablet (50 mg total) by mouth daily 100 tablet 1 4 12/12/19 25 Discontin ued(Patie nt Reported) metoprolol XL (TOPROL-XL) 50 mg extended release tabletIndicati ons:Paroxysmal SVT (supraventricu lar tachycardia),E ncounter for Medicare annual wellness exam Take 1 tablet (50 mg total) by mouth daily 100 tablet 1 4 12/12/19 25 Discontin ued(Patie nt Reported) Active Problems Problem Noted Date Diagnosed Date [...] cessation. Discussed different types of medications & ozqa-qbu-eszyisl aides to help with cessation. Moderate episode [...] & Plan (07/12/2020 4:28 PM CDT): 04/25/18: aa=544 hdl=33 re=957 rrc=075 Tc/hdl=6.6 Pravastatin 40mg daily. We will check [...] medication compliance. Discussed use of a pill resource management planner and having family remind her regularly [...] Hypertension associated with type 2 diabetes michael litus 11/27/2008 Assessment & Plan (10/03/2023 4:57 PM [...] 4:11 PM CDT): Referral to [facility] for colonoscopy. Aware that their office will call her to set up. number given if she does not receive call. Colonoscopy refused 04/28/2018 07/13/19 21 Depression 05/18/2009 07/12/2020 Chronic pain 06/15/2008 07/12/2020 Hyperlipidemia 06/15/2008 07/12/2020 Tobacco abuse 06/15/2008 07/12/2020 Encounters Date Type Department Care Team Description 12/11/2024 11:30 AM COMMERCIAL INTELLIGENCE MANAGER Office Visit [facility] [address] [place] [address] [address] [place] [address] Archie Cook MD 09/22/2024 Telephone [facility] [address] [place] [address] [address] [place] [id number] Nina Cabrera MA 09/16/2024 Telephone [facility] [address] [place] [address] Patrizia Estrella NP from Last 3 Months Immunizations Immunization Administration [...] Comments Hypercholesterolemia 1984 High choles terol; Comments: [facility] 03/01/2015 - Hx Other Medical 1993 degenerative di sc disease; Comments: [facility] 03/01/2015 - Hx Other Medical 2003 E-coli in blood - hospital; Comments: [facility] 03/01/2015 - Diabetes mellitus Diabetes melli tus; Comments: [facility] 03/01/2015 - Memory deficit due [...] on file Legal Sex Female 3:56 AM COMMERCIAL INTELLIGENCE MANAGER Gender Identity Not on file Sexual Orientation Not on file Last Filed Vital Signs Vital Sign Reading Time Taken Comments Blood Pressure 147/75 12/11/2024 11:54 AM COMMERCIAL INTELLIGENCE MANAGER Pulse 66 12/11/2024 11:54 AM COMMERCIAL INTELLIGENCE MANAGER Temperature 36.6 C (97.9 F) 10/26/2023 8:50 AM CDT Respiratory Rate 18 12/12/2023 1:48 PM COMMERCIAL INTELLIGENCE MANAGER Oxygen Saturation 100% 12/11/2024 11: 54 AM COMMERCIAL INTELLIGENCE MANAGER Inhaled Oxygen Concentration - - Weight 61.1 kg (134 lb 12.8 oz) 025 11:54 AM COMMERCIAL INTELLIGENCE MANAGER Height 160 cm (5' 2.99) 12/11/2024 11: 54 AM COMMERCIAL INTELLIGENCE MANAGER Body Mass Index 23.88 12/11/2024 11:54 AM COMMERCIAL INTELLIGENCE MANAGER Plan of Treatment Health Maintenance Due Date Last Done Comments Breast Cancer Screening-Mammogram 1952 Hepatitis C Screening 1950 Osteoporosis Screening-Bone Density Scan 1952 Dilated Eye Exam 1952 Hepatitis B Screening 1970 Zoster Vaccine (1 of 2) 2002 Colon Cancer Screening-FIT 05/03/2019 05/02/2018 Albumin Creatinine Ratio, Urine 08/24/2023 3 Lipid Panel 08/24/2023 08/23/2022, 0 08/2021, 04/25/2018, Additional history exists eGFR 08/24/2023 08/23/2022 Hemoglobin A1C 12/28/2023 06/27/2023, 0606/2022, 02/11/2021, Additional history exists Foot Exam 06/26/2024 06/27/2023, 06/06, 09/06/2022, Additional history exists Depression Screening 10/02/2024 10/03/2023, 10/03/2023, 06/27/2023, Additional history exists Well Visit 65+ 10/02/2024 10/03/2023 Influenza Vaccine (#1) 2024 , 10/02/2018, 04/25/2018, Additional history exists Fall Risk Assessment 10/25/2024 10/26/2023, 10/03/2023, 07/20/2022, Additional history exists DTaP/Tdap/Td Vaccine (3 - Td or Tdap) 01/07/2034 01/08/2024, 04/01/2013 Pneumococcal vaccine 65+ Completed 021, 04/25/2018, 04/22/2012, [...] LAB URINE ORDERABLES F inal Result [facility] [address] [id number] * (ABNORMAL) Lipid panel (08/23/2022 2:03 PM CDT) Cholesterol 248(H) <200 mg/dL [facility] HDL 46(L) > OR = 50 mg/dL [facility] Triglycerides 169(H) <150 mg/dL [facility] LDL 170(H) mg/dL (calc) [facility] Comment: Reference range: <100 Desirable range <100 mg/dL for primary prevention; <70 mg/dL for patients with CHD or diabetic patients with > or = 2 CHD risk factors. LDL-C is now calculated using the Iraida calculation, which is a validated novel method providing better accuracy than the Friedewald equation in the estimation of LDL-C. Baldemar SS et al. BRENDON. 2013;310(19): 2315-9979 (http://education.Providajob/faq/WAW259) Chol/HDL ratio 5.4(H) <5.0 (calc) [facility] [...] LAB BLOOD ORDERABLES F inal Result [facility] [address] [place] [address] * (ABNORMAL) Comprehensive metabolic panel (08/23/2022 2:03 PM CDT) Glucose 102(H) 65 - 99 mg/dL [facility] Comment: Fasting reference interval For someone without known diabetes, a glucose value between 100 and 125 mg/dL is consistent with prediabetes and should be confirmed with a follow-up test. BUN 11 7 - 25 mg/dL [facility] Creatinine 1.24(H) 0.50 - 1.05 mg/dL [facility] eGFR 47(L) > OR = 60 mL/min/1.7 3m2 [facility] Comment: The eGFR is based on the CKD-EPI 2020 equation. To calculate the new eGFR from a previous Creatinine or Cystatin C result, go to https://www.kidney.org/professionals/ kdoqi/gfr%5Fcalculator BUN/creat ratio 9 6 - 22 (calc) [facility] Sodium 139 135 - 146 mmol/L [facility] Potassium, pl 3.7 3.5 - 5.3 mmol/L [facility] Chloride 99 98 - 110 mmol/L [facility] CO2 30 20 - 32 mmol/L [facility] Calcium 10.0 8.6 - 10.4 mg/dL [facility] Protein, sr 7.4 6.1 - 8.1 g/dL [facility] Albumin 4.9 3.6 - 5.1 g/dL [facility] GLOBULIN 2.5 1.9 - 3.7 g/dL (calc) [facility] Alb/glob ratio 2.0 1.0 - 2.5 (calc) [facility] Bilirubin, total 0.9 0.2 - 1.2 mg/dL [facility] Alk phos 71 37 - 153 U/L [facility] AST 14 10 - 35 U/L [facility] ALT (SGPT) 11 6 - 29 U/L [facility] Blood 08/23/2022 2:03 PM CDT 08/23/2022 2:04 PM CDT Narrative [facility] - 08/25/2022 1:49 AM CDT FASTING:YES FASTING: YES Joan Sepulveda MD LAB BLOOD ORDERABLES F inal Result [facility] [address] [place] [address] * Occult Blood, Fecal (FIT) (05/02/2018) Stool us Historical Provider LAB BODY FLUIDS AND STOOL S ORDERABLES Final Result EXTERNAL LAB from Last 3 Months or Most Recently Relevant to Health Maintenance Insurance [employer] MEDICARE ADVANTAGE MEDICARE [facility] Advance Directives For more information, please contact: [phone] * Full Code (Latest Code Status on File) Date Activated Date Inactivated Comments 10/26/2023 9:52 AM 10/27/2023 5:11 AM Care Teams Associate Professor Of Automation Relationship Specialty Start Date End Date Joan Sepulveda MD PCP - General Family Practice 07/20/22
--- OUTSIDE RECORDS SUMMARY | 2024-12-15 15:45 | XMS_ITS | Clinical Summary ---
Author Organization [facility] Address [address] [place] [address] Care Team Providers Care Hook And Eye Attacher Name Role Phone Elise Hughes MD Primary Care Provider [phone] Source Comments [facility],non-owned Affiliates and Associated Physician Practices is amultiple site organization consisting of ambulatory clinics and hospital sitesin [place], [place], [place] and [place]. This disclosure is being madepursuant to the Care Everywhere program and may not contain all information available regarding this patient. Last updated 17.[facility] Allergies No known active allergies Medications * [...] on file Legal Sex Female 7:29 AM SOLID WASTE MANAGER Gender Identity Not on file Sexual [...] (2 - Td or Tdap) 04/01/2023 04/01/2013 DEPRESSION SCREENING 02/06/2024 DIABETES - URINE PROTEIN SCREENING 02/06/2024 05/28/2014 COVID-19 VACCINE ( - season) 2024 INFLUENZA VACCINE (#1) 2024 12/08/2010, 2009 Respiratory [...] 5:41 PM CDT Narrative Resulting Agency Comment [facility] [address] [phone] Elise Hughes MD LAB - URINE CHEMISTRY ORDERABLE S Final Result Performing Organization Address City/[facility]/ZIP Co de Phone Number [facility] INSURANCE BILL [address] [place] [address] * (ABNORMAL) HEMOGLOBIN A1C (05/28/2014 2:54 PM CDT) Hemoglobin A1c 5.9(H) 4.8 - 5.6 % [facility] INSURANCE BILL Comment: . Increased risk for diabetes: 5.7 - 6.4 Diabetes: >6.4 Glycemic control for adults with diabetes: <7.0 Whole blood specimen (specimen) BLOOD SPECIMEN WITH EDTA / Unknown 05/28/2014 2:54 PM CDT 05/28/2014 5:41 PM CDT Narrative Resulting Agency Comment [facility] [address] [phone] Elise Hughes MD LAB - CHEMISTRY ORDERABLES Casandra l Result Performing Organization Address [facility] Co de Phone Number [facility] INSURANCE BILL [address] [place] [address] * (ABNORMAL) COMPREHENSIVE METABOLIC PANEL (05/28/2014 2:54 [...] 5:41 PM CDT Narrative Resulting Agency Comment [address] [phone] us Elise Hughes MD LAB - CHEMISTRY ORDERABLES Casandra l Result [facility] INSURANCE BILL [address] [place] [address] * HEPATITIS C ANTIBODY (07/30/2012 12:35 PM [...] a more specific supplemental or PCR testing. [facility] HCV Ab w/Reflex to Verification test #[id number]. Blood specimen (specimen) BLOOD SPECIMEN / Unknown 07/30/2012 12:35 PM CDT 07/30/2012 5:49 PM CDT Narrative Resulting Agency Comment [facility] [address] [phone] us Elise Hughes MD LAB - CHEMISTRY ORDERABLES Casandra l Result [facility] INSURANCE BILL [address] [place] [address] * MAMMOGRAPHY ORDER (07/24/2012) Anatomical Region Laterality Modality Other us Elise Hughes MD MAMMO ORDERABLES Final Result from Last 3 Months or Most Recently Relevant to Health Maintenance Insurance MEDICARE [facility] Care Teams Hook And Eye Attacher Relationship Specialty Start Date End Date Elise Hughes MD PCP - General 10/26/08
--- OUTSIDE RECORDS SUMMARY | 2024-12-15 15:45 | XMS_ITS | Encounter Summary ---
Author Organization [facility] Address [address] [place] [address] Care Team Providers Care Parakeet Raiser Name Role Phone Joan Sepulveda MD Primary Care Provider Encounter Details Date Type Department Care Team (Late st Contact Info) Description 10/01/2023 Telephone [facility] [address] [place] [address] Lisa Hernandez RN Social History Tobacco Use [...] on file Legal Sex Female 3:56 AM INTERNATIONAL LOGISTICS ANALYST Gender Identity Not on file Sexual Orientation Not on file documented as of this encounter Functional Status * In the past year, patient experienced: Question Answer Date of Assessment Author One or more falls in the last year 0 2023 3:12 PM Bree Kelly MA * BP Location Answer Date of Assessment Author Left arm 10/03/2023 3:08 PM Lamine Kelly MA * AUDIT-C Score Answer Date of Assessment Author 0 10/03/2023 3:13 PM Lamine Kelly MA * Alcohol Use Question Answer Date of Assessment Author Q1: [...] Never 10/03/2023 3:13 PM Bree Kelly MA * BP Location Answer Date of Assessment Author Left arm 10/03/2023 3:08 PM Lamine Kelyl MA documented as of this encounter Plan of Treatment Not on file documented as of this encounter Visit Diagnoses Not on filedocumented in this encounter Care Teams Parakeet Raiser Relationship Specialty Start Date End Date Joan Sepulveda MD PCP - General Family Practice 07/20/22 documented as of this encounter
--- OUTSIDE RECORDS SUMMARY | 2024-12-15 15:45 | XMS_ITS | Encounter Summary ---
Author Organization [facility] Healthcare Address [facility] [place] [address] Care Team Providers Care Drosophere Operator Name Role Phone Joan Sepulveda MD Primary Care Provider Encounter Details Date Type Department Care Team (Late st Contact Info) Description 07/04/2024 Orders Only [facility] Health Information Management [address] [place] [id number] Yimi Vela MD [address] [place] [address] [address] [place], [place] [id number] Social History Tobacco Use Types Packs/Day Years [...] on file Legal Sex Female 3:56 AM JUNIOR FINANCIAL ANALYST Gender Identity Not on file Sexual [...] (07/03/2024) Anatomical Region Laterality Modality Other us [facility] Nasrin Vela MD [facility] CARDI[facility] PRO CEDURES Edited Result - Final documented in this encounter Visit Diagnoses Not on filedocumented in this encounter Care Teams Drosophere Operator Relationship Specialty Start Date End Date Joan Sepulveda MD PCP - General Family Practice 07/20/22 documented as of this encounter
[2024-12-15 16:06] LABS: Hematocrit 33.5 % (35.0-42.0); Hemoglobin 11.3 g/dL (11.7-13.8); Immature Granulocyte Percent A 0.2 % (0.0-0.0); Lymphocytes Absolute Auto 1.82 K/mm3 (1.10-4.50); Mean Corpuscular HGB Conc 33.7 g/dL (32-36); Mean Corpuscular Hemoglobin 31.3 pg (27.0-31.0); Mean Corpuscular Volume 92.8 fL (78.0-102.0); Nucleated Red Blood Cells Absolute Auto 0.00 K/mm3 (0.00-0.00); Nucleated Red Blood Cells Perc 0.0 % (0-0.0); Platelet Count Result 152 K/mm3 (150-420); Red Blood Count 3.61 M/mm3 (4.20-5.40); White Blood Count 4.5 K/mm3 (4.8-10.8)
[2024-12-15 16:15] LABS: Iron 44 ug/dL (37-170)
[2024-12-15 16:25] LABS: Percent Iron Saturation 12 % (20-50)
[2024-12-15 16:29] LABS: INR 1.0; Prothrombin Time 10.6 Seconds (9.50-12.1)
[2024-12-15 16:52] LABS: Ferritin 13.80 ng/mL (11.1-264)
== END 2024-12-15 15:42 | disposition home or self-care (01) ==
LOC: CHSLAB 15:43
PROVIDERS: PCP Nurse Practitioner Family; Visit Provider Nurse Practitioner Family
DX: E61.1 Iron deficiency (principal); R04.0 Epistaxis; Z79.01 Long term (current) use of anticoagulants
CPT/HCPCS: 36415; 82728; 83540; 83550; 85025; 85610